=== PATIENT | female | born 1985 | race Caucasian/White ===

== ENCOUNTER 2016-05-22 06:09 | Inpatient (IN) | payer OTHER ==
[~2016-05-22] VITALS: Ht 154.9 cm; Wt 79.5 kg
[2016-05-22] VITALS (31 sets, daily range): BP systolic 107–151; BP diastolic 55–91; PULSE 80–144; TEMP 36.6–37; O2SAT 86–100; Ht 154.9 cm; Wt 79.5 kg
[~2016-05-22 06:09] MED LIST: ALBUAER2 INH; AMPH30CA3 PO; CETITAB27 PO; CHOL100027 PO; IPRASOL4 INH; MAGN400T5 PO; MOME200A INH; MONT1TAB3 PO; NICO21DI35 TD; NICO2LOZ PO; OMEG10007 PO; PRED10TA PO
[2016-05-22] MEDS ORDERED: METHYLPREDNISOLONE 125 MG VIAL IV STA (06:13)
[2016-05-22] MEDS ORDERED: MAGNESIUM SULFATE 1GM / D5W 1 GM BAG IV STA ×2 (06:13)
[2016-05-22] MEDS ORDERED: SODIUM CHLORIDE 0.9% 1000ML 1,000 ML IV STA (06:15)
--- NOTE | 2016-05-22 06:33 | EMERGENCY ROOM VISIT NOTE ---
History Report prepared by Dara: Artemio Owens Under the Supervision of: Dr. Lauren Arnold D.O. First contact with patient: 06:13 Chief Complaint: RESPIRATORY PROBLEMS Stated Complaint: ASTHMA History of Present Illness The patient is a 30 year old female who presents to the Emergency Room with complaints of worsening shortness of breath for the past two days. The patient started having a much harder time breathing this morning. She has not felt febrile. The patient has a history of asthma exacerbation. She usually finds relief from steroids when she is having an asthma attack. The patient has been has been intubated for asthma in the past. She denies any other health problems. A broth setter of the patient states that she had a similar episode one year ago that requires intubation. The patient is a smoker. Source of History: patient Onset: two days Position: other (respiratory) Quality: other (short of breath) Timing: worsening Associated Symptoms: No fevers Review of Systems See HPI for pertinent positives & negatives. A total of 10 systems reviewed and were otherwise negative. Past Medical & Surgical Medical Problems: (1) Asthma (2) Asthma with acute exacerbation (3) Bronchitis Family History Cancer Diabetes mellitus Hypertension Social History Smoking Status: Current Every Day Smoker Alcohol Use: none Drug Use: none Marital Status: in relationship Housing Status: lives with significant other Occupation Status: unemployed Current/Historical Medications Scheduled Amphetamine-Dextroamphetamine 30MG (Adderall Xr 30MG), 30 MG PO BID Cetirizine/Pseudoephedrine (Zyrtec-D Er 5MG/120MG), 1 TAB PO Q12H Clonidine (Catapres-Tts), 1 PATCH TD WK Clonidine Hcl (Catapres), 0.1 MG PO HS Fish Oil ([place]-3), 1 CAP PO DAILY Fluoxetine (Prozac), 20 MG PO DAILY Fluticasone Furoate-Vilanterol (Breo Ellipta 200-25 Mcg/INH), 1 PUFF INH DAILY Montelukast Sodium (Singulair), 10 MG PO DAILY Multivitamin (Multivitamin), 1 TAB PO DAILY Quetiapine Fumarate (Seroquel), 50-100 MG PO HS Scheduled PRN Albuterol (Ventolin), 2 PUFFS INH Q4 PRN for SOB/Wheezing Hydroxyzine Hcl (Atarax), 50-100 MG PO Q6 PRN for Anxiety Ipratropium-Albuterol (Duoneb), 1 TREATMENT INH Q4H PRN for Wheezing Methocarbamol (Robaxin), 1-2 TAB PO Q6 PRN for UNDECIDED Allergies Coded Allergies: No Known Allergies (Unverified , 11/03/12) Physical Exam Vital Signs Date Time Temp Pulse Resp B/P Pulse Ox O2 Delivery O2 Flow Rate FiO2 05/22/16 07:57 36.5 05/22/16 07:50 151/72 05/22/16 07:39 138 100 05/22/16 07:24 140 99 05/22/16 07:19 141 100 BiPAP 05/22/16 07:09 179/151 05/22/16 07:04 142 100 05/22/16 06:49 142 100 05/22/16 06:44 98 BiPAP 50 05/22/16 06:39 142 100 BiPAP 50 05/22/16 06:34 148 100 BiPAP 50 05/22/16 06:33 100 BiPAP 05/22/16 06:33 100 BiPAP 05/22/16 06:32 62 Room Air 05/22/16 06:29 144 99 05/22/16 06:29 144 42 121/97 62 Room Air 05/22/16 06:28 149/97 05/22/16 06:25 144 96 50 05/22/16 06:24 147 93 05/22/16 06:24 142 05/22/16 06:19 143 91 05/22/16 06:13 121/97 Physical Exam General: Appears to be in severe respiratory distress with audible wheezing. HEENT: Head - normocephalic and atraumatic Pupils are equal, round, and reactive to light. Extraocular eye muscles are intact, and sclera are anicteric. Nose - moist nasal mucosa without discharge. Mouth - moist buccal mucosa. Oropharynx is nonerythematous and there is no tonsillar exudate or edema noted. Neck: Supple; no JVD, nuchal rigidity, cervical lymphadenopathy. Heart: Tachycardic, regular rhythm. There is a normal S1 and S2 with no murmurs , clicks, or gallops appreciated. Lungs: Inspiratory and expiratory wheezing in all lung mosley with very little air movement. Abdomen: Soft, completely nontender, nondistended, with good bowel sounds. There are no palpable pulsatile masses or hepatosplenomegaly. There is no guarding, rigidity, or rebound noted. Extremities: No evidence of cyanosis, clubbing, or edema. There are easily palpable peripheral pulses. Skin: Pale and diaphoretic. Medical Decision & Procedures ER Provider Diagnostic Interpretation: X-ray results as stated below per interpretation by me and the radiologist: CHEST ONE VIEW PORTABLE CLINICAL HISTORY: severe asthma attack COMPARISON STUDY: 05/11/2015 FINDINGS: Study is limited from a technical standpoint with suboptimal evaluation of the lung bases. The heart is normal in size. There is no failure. There is a triangle density at the right lung base, likely atelectatic. There are no pleural effusions.[ There is been interval removal of endotracheal tube. IMPRESSION: 1. Interval removal of the endotracheal tube 2. Triangular opacity at the right lung base, likely atelectatic, although an inflammatory process could appear similar. If the patient's symptoms persist, a PA and lateral study is recommended. Electronically signed by: Fabricio Sawyer M.D. 05/22/2016 6:44 AM Laboratory Results Test 05/22/16 07:45 05/22/16 07:55 Laboratory results per my review. Medications Administered Medications (Trade) Dose Ordered Sig/Shawn Route Start Time Stop Time Status Last Admin Dose Admin Methylprednisolone Sodium Succinate (Solu-Medrol IV) 125 mg NOW STAT IV 05/22/16 06:13 05/22/16 06:15 DC 05/22/16 06:26 125 MG Magnesium Sulfate (Magnesium Sulfate) 1 gm NOW STAT IV 05/22/16 06:13 05/22/16 06:15 DC 05/22/16 06:26 1 GM Magnesium Sulfate 1 gm 1 gm NOW STAT IV 05/22/16 06:13 05/22/16 06:15 DC 05/22/16 06:45 1 GM Sodium Chloride (Nss 1000ml) 1,000 ml @ 999 mls/hr Q1H1M STAT IV 05/22/16 06:15 05/22/16 07:15 DC 05/22/16 06:27 999 MLS/HR Procedure Medications administered include Magnesium Sulfate IV, Solu-Medrol IV, NSS, DuoNeb treatments, 1:100,000 epinephrine IV-3 mL's ED Course 0610: Past medical records reviewed. The patient was evaluated emergently in room B1. A complete history and physical exam was performed. 2 large bore IV locks were initiated. The patient was placed on supplemental O2. Patient was given a DuoNeb treatment. The patient was placed on BiPAP. A portal chest x- ray was obtained. 0613: Magnesium Sulfate 1 gm IV, Magnesium Sulfate 1 gm IV, Solu-Medrol 125 mg IV. 0615: NSS 1000 ml @ 999 mls/hr. patient received her first 1 mL dose of 1:100, 000 epinephrine IV. 0645: The patient continues to look slightly improved on BiPAP with nebs through the circuit. 0700: Spoke with the patient's brother at bedside. We are still working on getting an ABG. The patient is feeling slightly better. 0720: I performed a groin stick on the patient for blood. 0731: Discussed the case with Dr. Campos, Professor Of Environmental [employer]. She will see the patient in the ED. 0735: Doing another groin stick. 0749: [facility] is aware [facility] the situation. 0800: Unfortunately, the patient's blood continues to clot with each laboratory test. I stuck her groin again for blood. 0817: I discussed the case with Dr. Campos at the bedside. The patient continues to improve and is able to speak 4-5 word sentences. Medical Decision The patient is a 30 year old female who presents to the ED with shortness of breath. Differential diagnosis includes respiratory failure, status asthmaticus , pneumonia, bronchitis, URI. We're unable to get any laboratory results here in the emergency department as the patient's blood continued to clot. This is a 30-year-old female patient with a history of asthma who presents to the emergency department in severe respiratory distress. The patient had an O2 saturation presentation of 60%. She is suffering from respiratory failure. We made a significant attempt at reversing the patient's status asthmaticus. She received IV normal saline solution, IV site Medrol, IV magnesium, and IV epinephrine. We did make some improvement. O2 saturations are currently 98% on BiPAP. The patient will be admitted to the ICU. Her respiratory status is significantly improved since presentation. The patient has a history of asthma and continues to smoke. Her brother explains that she is currently taking oral steroids. Consults Time Called: 724 Consulting Physician: Dr. Campos, Professor [employer] Returned Call: 730 07: Discussed the case with Dr. Campos, Professor Of Environmental [employer]. She will see the patient in the ED. Additional Consults: Time Called: 744 Consulted Physician: Dr. Hernandez, [facility] Returned Call: 07 Additional Comments: 07: Discussed the case with Dr. Hernandez, [facility]. He is aware of the situation. Impression Primary Impression: Respiratory failure Additional Impression: Status asthmaticus Critical Care I have personally spent greater than 120 minutes of critical care time in the direct management of this patient. This includes bedside care, interpretation of diagnostic studies, and testing, discussion with consultants, patient, and family members, and other required patient management activities. This 120 minutes is in excess of all separately billable procedures. Scribe Attestation The scribe's documentation has been prepared under my direction and personally reviewed by me in its entirety. I confirm that the note above accurately reflects all work, treatment, procedures, and medical decision making performed by me. Departure Information Dispostion Other (Being Evaluated By Professor Of Environmental Science) Referrals Anjel Zeng D.O.Int.Med. (PCP) Patient Instructions A Signature Page, My [facility]
[2016-05-22] MEDS ORDERED: FLUT1INH7 INH (06:40)
[2016-05-22] MEDS ORDERED: MULT-506 PO (06:41)
[2016-05-22] MEDS ORDERED: CLON0.1T12 PO (06:41)
[2016-05-22] MEDS ORDERED: CLON0.1D7 TD (06:42)
[2016-05-22] MEDS ORDERED: FLUO20CA35 PO (06:43)
[2016-05-22] MEDS ORDERED: QUET1TAB32 PO ×2 (06:45→08:54)
[2016-05-22] MEDS ORDERED: METH750T PO (06:46)
--- NOTE | 2016-05-22 06:46 | DIAGNOSTIC IMAGING REPORT ---
CHEST ONE VIEW PORTABLE CLINICAL HISTORY: severe asthma attack COMPARISON STUDY: 05/11/2015 FINDINGS: Study is limited from a technical standpoint with suboptimal evaluation of the lung bases. The heart is normal in size. There is no failure. There is a triangle density at the right lung base, likely atelectatic. There are no pleural effusions.[ There is been interval removal of endotracheal tube. IMPRESSION: 1. Interval removal of the endotracheal tube 2. Triangular opacity at the right lung base, likely atelectatic, although an inflammatory process could appear similar. If the patient's symptoms persist, a PA and lateral study is recommended. Electronically signed by: Fabricio Sawyer M.D. 05/22/2016 6:44 AM
[2016-05-22] MEDS ORDERED: HYDR-3126 PO (06:48)
[2016-05-22] MEDS ORDERED: hydrOXYzine HCL 25 MG TAB PO PRN (08:00)
[2016-05-22] MEDS ORDERED: ALBUTEROL HFA 8 GM INHALER INH PRN (08:00)
[2016-05-22] MEDS ORDERED: ALBUT/IPRATROP 3MG/0.5MG NEB 3 ML VIAL INH PRN (08:00)
[2016-05-22] MEDS ORDERED: CETIRIZINE PO SCH (08:00)
[2016-05-22] MEDS ORDERED: METHOCARBAMOL 750 MG TAB PO PRN (08:00)
[2016-05-22] MEDS ORDERED: PSEUDOEPHEDRINE PO SCH (08:00)
[2016-05-22] MEDS ORDERED: CTP/1 PO (08:44)
[2016-05-22] MEDS ORDERED: HYDR1CAP85 PO (08:54)
[2016-05-22] MEDS ORDERED: PREN1TAB29 PO (08:54)
[2016-05-22] MEDS ORDERED: NRN100 PO (08:54)
[2016-05-22] MEDS ORDERED: BACL10TA PO (08:54)
[2016-05-22] MEDS ORDERED: AMPHETAMINE DEXTROAMPHETAMINE 30 MG PO SCH (09:00)
[2016-05-22] MEDS ORDERED: NON-FORMULARY MEDICATION (Fluticasone Furoate-Vilanterol (Breo Ellipta 200-25 Mcg/INH) 1 P INH SCH (09:00)
[2016-05-22] MEDS ORDERED: NURSING VERBAL MED ORDER ONE ×2 (09:30→09:45)
[2016-05-22] MEDS ORDERED: MoRPHine SULFATE 2 MG/ML CARP ONE (09:32)
[2016-05-22] MEDS ORDERED: SODIUM CHLORIDE 0.9% 1000ML 1,000 ML IV ONE (09:45)
[2016-05-22] MEDS ORDERED: ACETAMINOPHEN IV 100 ML IV PRN (09:45)
[2016-05-22] MEDS ORDERED: MoRPHine SULFATE 2 MG/ML CARP IV STA (09:46)
[2016-05-22] MEDS: NICOTINE 14 MG/24 HR TDSY TD SCH (10:39)
[2016-05-22] MEDS: PANTOprazole SOD 40 MG TAB PO SCH (10:39)
[2016-05-22] MEDS: MONTELUKAST SOD 10 MG TAB PO SCH (10:39)
[2016-05-22] MEDS: FLUOXETINE HCL 20 MG CAP PO SCH (10:40)
[2016-05-22] MEDS: MULTIVITAMIN TAB PO SCH (10:40)
[2016-05-22] MEDS: SODIUM CHLORIDE 0.9% 1000ML 1,000 ML IV SCH ×3 (11:07→23:18)
[2016-05-22] MEDS: ALBUT/IPRATROP 3MG/0.5MG NEB 3 ML VIAL INH SCH ×2 (11:13→15:41)
[2016-05-22 11:36] LABS: BASO % 0.1 %; BASO ABS # 0.01 K/uL (0-0.2); COMPLETE YES; EOS % 0.3 %; HEMATOCRIT 34.2 % (37-47); IG% 0.2 %; LYMPH % 3.2 %; LYMPH ABS # 0.46 K/uL (1.2-3.4); MEAN CELL VOLUME 88.4 fL (80-100); MEAN CORPUSCULAR HEMOGLOBIN 29.7 pg (25-34); MEAN CORPUSCULAR HGB CONC 33.6 g/dl (32-36); MEAN PLATELET VOLUME 10.7 fL (7.4-10.4); MONO % 0.6 %; NEUT % 95.6 %; PLATELET COUNT 267 K/uL (130-400); RED BLOOD COUNT 3.87 M/uL (4.2-5.4); WHITE BLOOD COUNT 14.37 K/uL (4.8-10.8)
[2016-05-22 11:46] LABS: VEN BLD GAS O2 SATURATION 82.3 %
[2016-05-22 11:50] LABS: INR 1.1 (0.9-1.1); PROTHROMBIN TIME (PATIENT) 11.3 SECONDS (9.0-12.0)
[2016-05-22 11:58] LABS: ALT/SGPT 43 U/L (12-78); BLOOD UREA NITROGEN 15 mg/dl (7-18); BUN/CREATININE RATIO 32.7 (10-20); CALCIUM 7.9 mg/dl (8.5-10.1); CARBON DIOXIDE 27 mmol/L (21-32); CHLORIDE 106 mmol/L (98-107); CREATININE 0.45 mg/dl (0.60-1.20); GLUCOSE 152 mg/dl (70-99); MAGNESIUM 2.4 mg/dl (1.8-2.4); SODIUM 141 mmol/L (136-145)
[2016-05-22 12:14] LABS: ALB/GLOB RATIO 0.8 (0.9-2); ALKALINE PHOSPHATASE 80 U/L (45-117); AST/SGOT 26 U/L (15-37); PHOSPHORUS 1.5 mg/dl (2.5-4.9)
[2016-05-22 12:43] LABS: INFLUENZA A PCR Neg for Influ A (NEG); INFLUENZA B PCR Neg for Influ B (NEG)
[2016-05-22] MEDS: METHYLPREDNISOLONE IV 60 MG in SYRINGE 0 ML IV SCH ×3 (12:49→23:17)
[2016-05-22] MEDS ORDERED: POTASSIUM PHOS 3 MMOL/1 ML INFUSION IV STA (13:02)
[2016-05-22] MEDS ORDERED: SODIUM PHOSPHATE 3 MMOL/1 ML INFUSION IV STA (13:18)
--- NOTE | 2016-05-22 13:33 | History and Physical ---
History & Physical Date & Time of Service: May 22, 2016 at 13:18 Chief Complaint: Asthma With Acute Exacerbation Primary Care Physician: Anjel Zeng D.O.Int.Med. History of Present Illness Source: patient, family, hospital records 30 yo female with history of asthma and tobacco abuse presented to the ED in the svp monetization with respiratory distress, wheezing, coughing that started the evening before. Her asthma is typically well controlled and she is compliant with maintenance inhaled therapies. She has experienced some mild exacerbations over the past year but all resolved with outpatient treatment. She does have a history of status asthmaticus in April 2015 that required intubation and she was eventually transferred to tertiary care center. She and family report that she had a full recovery after that episode. More recently, the patient started to feel short of breath 24 hours prior to admission. She has multiple family members who are experiencing URI symptoms including parents and brother. She stared with rhinorrhea and congestion, then started to cough and then wheeze. Her respiratory rate increased and she developed distress. In the ED she was breathing in the 40's and she was very fatigued. CXR was normal. She was 60% on room air so BiPAP placed. She received Epinephrine, Solumedrol, nebulizers and IV fluids. She started to become more awake and alert and oxygen saturations were in the 90's on the BiPAP. When I saw her she was smiling and laughing, certainly no longer in distress. She was still very tight on exam with bilateral wheezing, decision made to admit to ICU and Dr. Campos evaluated in the ED. Past Medical/Surgical History Medical Problems: (1) Asthma Status: Chronic (2) Bronchitis Status: Resolved ADHD Tobacco abuse h/o IgE allergies Family History Cancer Diabetes mellitus Hypertension Social History Smoking Status: Current Every Day Smoker (1 ppd) Drug Use: none Marital Status: in relationship Occupational Status: unemployed Multi-Drug Resistant Organisms History of MDRO: No Allergies Coded Allergies: Dust (Verified Allergy, Severe, BREATHING DIFFICULTIES, 05/22/16) POLLEN (Verified Allergy, Severe, BREATHING DIFFICULTIES, 05/22/16) Pollen Extract (Verified Allergy, Severe, BREATHING DIFFICULTIES, 05/22/16 ) Cat Dander (Verified Allergy, Intermediate, BREATHING DIFFICULTIES, ) CAT DANDER/SALIVA Dog Dander (Verified Allergy, Intermediate, BREATHING DIFFICULTIES, ) DOG DANDER/SALIVA Grass (Verified Allergy, Intermediate, BREATHING DIFFICULTIES, 05/22/16) Home Medications Scheduled Amphetamine-Dextroamphetamine 30MG (Adderall Xr 30MG), 30 MG PO BID Baclofen (Lioresal), 1 TAB PO TID Fluoxetine (Prozac), 20 MG PO DAILY Fluticasone Furoate-Vilanterol (Breo Ellipta 200-25 Mcg/INH), 1 PUFF INH DAILY Gabapentin (Gabapentin), 1 CAP PO DAILY Hydroxyzine Pamoate (Vistaril), 25 MG PO QID Multivitamin (Multivitamin), 1 TAB PO DAILY Vit W/ Ferrous Fumara (), 1 TAB PO DAILY Quetiapine Fumarate (Seroquel), 50 MG PO HS Scheduled PRN Albuterol (Ventolin), 2 PUFFS INH Q4 PRN for SOB/Wheezing Clonidine Hcl (Catapres), 0.1 MG PO DAILY PRN for PRN Ipratropium-Albuterol (Duoneb), 1 TREATMENT INH Q4H PRN for Wheezing Review of Systems Constitutional: + fatigue, + weakness, No chills, No fever, No sweats, No weight loss Eyes: No diplopia, No discharge, No eye pain, No problem reported, No redness, No worsening of vision ENT: + nasal symptoms, + sore throat, No dental problems, No hearing loss, No problem reported, No tinnitus, No trouble swallowing, No unusual epistaxis Respiratory: + cough, + dyspnea at rest, + dyspnea on exertion, + shortness of breath, + wheezing, No hemoptysis, No sputum Cardiovascular: No PND, No chest pain, No claudication, No edema, No orthopnea , No palpitations, No problem reported Abdomen: No GI bleeding, No constipation, No diarrhea, No nausea, No pain, No problem reported, No vomiting Musculoskeletal: No calf pain, No joint pain, No muscle pain, No problem reported, No swelling Genitourinary - Female: No dysuria, No urinary frequency, No urinary incontinence, No urinary urgency Neurologic: No balance problems, No memory loss, No numbness/tingling, No paralysis, No problem reported, No vertigo, No weakness Psychiatric: No anhedonism, No anxiety, No depression symptoms, No insomnia, No problem reported, No substance abuse Endocrine: No excessive thirst, No excessive urination, No fatigue, No problem reported Hematologic / Lymphatic: No abnormal bleeding/bruising, No clotting problems, No night sweats, No problem reported, No swollen lymph nodes Integumentary: No bleeding, No color change, No itch, No new/changing skin lesions, No problem reported, No rash Allergic / Immunologic: + seasonal allergies, No environmental allergies, No food allergies, No frequent infections, No hives, No pet sensitivities, No poor healing Physical Exam Vital Signs Date Time Temp Pulse Resp B/P Pulse Ox O2 Delivery O2 Flow Rate FiO2 05/22/16 12:00 100 BiPAP 40 05/22/16 11:59 111 22 107/73 97 05/22/16 11:18 114 26 100 BiPAP/CPAP 50 05/22/16 11:16 114 100 50 05/22/16 11:00 116 24 119/75 100 05/22/16 10:00 119 24 100 05/22/16 09:30 128 31 99 05/22/16 09:20 131 28 140/94 100 BiPAP 50 05/22/16 09:17 130 29 151/55 98 05/22/16 09:17 130 29 151/55 98 05/22/16 09:00 100 BiPAP 05/22/16 09:00 36.8 05/22/16 09:00 128 99 05/22/16 09:00 128 99 05/22/16 08:42 100 BiPAP 50 05/22/16 07:57 36.5 05/22/16 07:50 151/72 05/22/16 07:39 138 100 05/22/16 07:24 140 99 05/22/16 07:19 141 100 BiPAP 05/22/16 07:09 179/151 05/22/16 07:04 142 100 05/22/16 06:49 142 100 05/22/16 06:44 98 BiPAP 50 05/22/16 06:39 142 100 BiPAP 50 05/22/16 06:34 148 100 BiPAP 50 05/22/16 06:33 100 BiPAP 05/22/16 06:33 100 BiPAP 05/22/16 06:32 62 Room Air 05/22/16 06:29 144 99 05/22/16 06:29 144 42 121/97 62 Room Air 12/31/16 06:28 149/97 05/22/16 06:25 144 96 50 05/22/16 06:24 147 93 05/22/16 06:24 142 05/22/16 06:19 143 91 05/22/16 06:13 121/97 General Appearance: WD/WN, + mild distress Head: normocephalic, atraumatic Eyes: normal inspection, EOMI, sclerae normal ENT: normal ENT inspection, hearing grossly normal, pharynx normal Neck: supple, no adenopathy, no JVD, trachea midline Respiratory/Chest: chest non-tender, normal breath sounds, + respiratory distress (mild), + accessory muscle use, + wheezing Cardiovascular: no edema, no gallop, no JVD, no murmur, normal peripheral pulses, + tachycardia Abdomen/GI: normal bowel sounds, non tender, soft, no organomegaly Back: normal inspection, no CVA tenderness, no muscle spasm, normal range of motion Extremities/Musculoskelatal: normal inspection, no calf tenderness, normal capillary refill, no pedal edema, normal range of motion, pelvis stable Neurologic/Psych: associate technician II-XII nml as tested, no motor/sensory deficits, alert, normal mood/affect, normal reflexes, oriented x 3 Skin: normal color, warm/dry, no rash Lymphatic: no adenopathy Diagnostics Laboratory Results Results Past 24 Hours Test 05/22/16 09:30 05/22/16 11:17 05/22/16 11:18 05/22/16 11:20 Range/Units Influenza Type A (RT-PCR) Neg for Influ A NEG Influenza Type B (RT-PCR) Neg for Influ B NEG Venous Blood pH 7.38 7.36-7.41 Venous Blood Partial Pressure CO2 46 38.0-50.0 mmHg Venous Blood Partial Pressure O2 47 mmHg Venous Blood HCO3 27 mmol/L Venous Blood Oxygen Saturation 82.3 % Venous Blood Base Excess 1.0 mmol/L White Blood Count 14.37 4.8-10.8 K/uL Red Blood Count 3.87 4.2-5.4 M/uL Hemoglobin 11.5 12.0-16.0 g/dL Hematocrit 34.2 37-47 % Mean Corpuscular Volume 88.4 80-100 fL Mean Corpuscular Hemoglobin 29.7 25-34 pg Mean Corpuscular Hemoglobin Concent 33.6 32-36 g/dl Platelet Count 267 130-400 K/uL Mean Platelet Volume 10.7 7.4-10.4 fL Neutrophils (%) (Auto) 95.6 % Lymphocytes (%) (Auto) 3.2 % Monocytes (%) (Auto) 0.6 % Eosinophils (%) (Auto) 0.3 % Basophils (%) (Auto) 0.1 % Neutrophils # (Auto) 13.74 1.4-6.5 K/uL Lymphocytes # (Auto) 0.46 1.2-3.4 K/uL Monocytes # (Auto) 0.08 0.11-0.59 K/uL Eosinophils # (Auto) 0.05 0-0.5 K/uL Basophils # (Auto) 0.01 0-0.2 K/uL RDW Standard Deviation 42.1 36.4-46.3 fL RDW Coefficient of Variation 13.1 11.5-14.5 % Immature Granulocyte % (Auto) 0.2 % Immature Granulocyte # (Auto) 0.03 0.00-0.02 K/uL Prothrombin Time 11.3 9.0-12.0 SECONDS Prothromb Time International Ratio 1.1 0.9-1.1 Activated Partial Thromboplast Time 26.6 21.0-31.0 SECONDS Partial Thromboplastin Ratio 1.0 Sodium Level 141 136-145 mmol/L Potassium Level 4.0 3.5-5.1 mmol/L Chloride Level 106 98-107 mmol/L Carbon Dioxide Level 27 21-32 mmol/L Anion Gap 8.0 3-11 mmol/L Blood Urea Nitrogen 15 7-18 mg/dl Creatinine 0.45 0.60-1.20 mg/dl Est Creatinine Clear Calc Drug Dose 176.1 ml/min Estimated GFR () > 150.0 Estimated GFR (Non- 135.4 BUN/Creatinine Ratio 32.7 10-20 Random Glucose 152 70-99 mg/dl Lactic Acid Level 1.2 0.4-2.0 mmol/L Calcium Level 7.9 8.5-10.1 mg/dl Phosphorus Level 1.5 2.5-4.9 mg/dl Magnesium Level 2.4 1.8-2.4 mg/dl Total Bilirubin 0.2 0.2-1 mg/dl Aspartate Amino Transf (AST/SGOT) 26 15-37 U/L Alanine Aminotransferase (ALT/SGPT) 43 12-78 U/L Alkaline Phosphatase 80 45-117 U/L Total Protein 6.6 6.4-8.2 gm/dl Albumin 3.0 3.4-5.0 gm/dl Globulin 3.6 2.5-4.0 gm/dl Albumin/Globulin Ratio 0.8 0.9-2 Bedside Glucose 151 70-90 mg/dl Microbiology Results 05/22/16 Blood Culture, Received Pending 05/22/16 Blood Culture, Received Pending 05/22/16 MRSA DNA Surveillance Screen - Final, Complete Specimen Negative for MRSA by DNA Probe CXR normal Impression Assessment and Plan 30 yo female with status asthmaticus, acute respiratory failure - Status asthmaticus with acute hypoxic respiratory failure: admit to ICU on BiPAP Solumedrol 80 q 8, Levaquin, nebulizers consult pulmonary medicine for recommendations, consult ICU will check labs (unobtainable in the ED) already showing signs of improvement, should be able to hold off on intubation - Tobacco abuse: nicotine patch, will continue to breastfeeding peer counselor on importance of quitting - ADHD: continue Seroquel - DVT prophylaxis: Lovenox - GI prophylaxis: Protonix, due to high dose steroids Level of Care Critical Care Advanced Directives Existing Advance Directive: No Existing Living Will: No Existing Power of Synchronizer: No Resuscitation Status FULL RESUSCITATION VTE Prophylaxis VTE Risk Assessment Done? Y/N: Yes Risk Level: Low Given or contraindicated: Enoxaparin (Lovenox)SQ Additional Copies To Anjel Zeng D.O.Int.Med.; Jesus Fulton M.D.
[2016-05-22] MEDS: MoRPHine SULFATE 2 MG/ML CARP IV PRN ×2 (13:34→18:05)
[2016-05-22] MEDS: ENOXAPARIN 40 MG/0.4 ML SYR SQ SCH (13:35)
[2016-05-22] MEDS: ALBUTEROL 0.083% NEBU SOLN 3 ML VIAL INH PRN ×2 (13:44→19:45)
[2016-05-22] MEDS ORDERED: LEVOFLOXACIN / D5W 750 MG in PREMIXED IN D5W 150 ML IV SCH (14:00)
[2016-05-22] MEDS ORDERED: SODIUM PHOSPHATE INJ 15 MMOL in SODIUM CHLORIDE 0.9% 250ML 250 ML IV ONE (14:00)
[2016-05-22] MEDS: POTASSIUM PHOSPHATE INJ 15 MMOL in SODIUM CHLORIDE 0.9% 250ML 250 ML IV SCH (14:16)
[2016-05-22] MEDS: ADDERALL 30 MG SCH ×2 (16:00→23:27)
--- NOTE | 2016-05-22 16:08 | Pulmonary Consultation ---
History General Date of Service: May 22, 2016. Stated Complaint: Asthma With Acute Exacerbation HPI The patient is a 30 year old female who presents to [facility] with complaints of Asthma With Acute Exacerbation. The patient's primary care provider is Anjel Zeng D.O.Int.Med.. 30-year-old female admitted for severe asthma flare/status asthmaticus requiring ICU admission. Patient has had increasing dyspnea on exertion with green productive sputum off and on since 2015. In 2014 she notes 4-5 admissions for asthma exacerbation while in 2015 she was incarcerated this is her first exacerbation requiring admission. Since legs giving she has noted difficulty with dyspnea on exertion, previous 12 hours prior to admission her work of breathing increased dramatically and she believes she was going to go into respiratory failure. In the emergency room the patient was severely tachypneic and low 40s and BiPAP was initiated. She was also treated with 125 mg of IV Solu-Medrol, 2 g of magnesium sulfate, DuoNeb treatments and 1:100,000 epinephrine IV. Since these interventions the patient notes decrease work of breathing but still requires noninvasive ventilation secondary to severe cough. Denies: Fever, chills, drug use, pleurisy, cardiac chest pain, weight loss, hemoptysis Positive: Menses Review of Systems Constitutional: reports: no symptoms Eyes: reports: no symptoms ENT: reports: no symptoms Cardiovascular: reports: no symptoms Respiratory: reports: as stated in HPI Gastrointestinal: reports: no symptoms Genitourinary - Female: reports: no symptoms Integumentary: reports: no symptoms Neurologic: reports: no symptoms Psychiatric: reports: no symptoms Endocrine: no symptoms Hematologic / Lymphatic: no symptoms Allergic / Immunologic: no symptoms Past Medical History Past Medical History: 1) Poorly controlled asthma a. Elevated IgE b. Poor candidate for candidate for allergy 2) Respiratory failure from asthma a. Intubation b. Precipitated from nasal inhalation heroin c. Sent the fluid of for rehabilitation d. Multiple exacerbations requiring steroids 3) Tobacco dependence 4) Anxiety 5) Attention deficit disorder without hyperactivity 6) Insomnia 7) Oral allergy syndrome Family History Cancer Diabetes mellitus Hypertension 1) Breast cancer 2) Ovarian cancer 3) Asthma 4) Diabetes Social History Hx Tobacco Use In Past Year?: Yes Smoking Status: Current Every Day Smoker (1 ppd) Marital status: in relationship Occupational Status: unemployed History of MDRO History of MDRO: No Allergies Coded Allergies: Dust (Verified Allergy, Severe, BREATHING DIFFICULTIES, 05/22/16) POLLEN (Verified Allergy, Severe, BREATHING DIFFICULTIES, 05/22/16) Pollen Extract (Verified Allergy, Severe, BREATHING DIFFICULTIES, 05/22/16 ) Cat Dander (Verified Allergy, Intermediate, BREATHING DIFFICULTIES, ) CAT DANDER/SALIVA Dog Dander (Verified Allergy, Intermediate, BREATHING DIFFICULTIES, ) DOG DANDER/SALIVA Grass (Verified Allergy, Intermediate, BREATHING DIFFICULTIES, 05/22/16) Current Medications Reported Home Medications Medications Dose Route/Sig Max Daily Dose Days Date Category Dose Instructions Seroquel (Quetiapine Fumarate) 50 Mg Tab 50 Mg PO HS 05/22/16 Reported Gabapentin Unknown Strength Cap 1 Cap PO DAILY 05/22/16 Reported ( Vit W/ Ferrous Fumara) 1 Tab Tab 1 Tab PO DAILY 05/22/16 Reported Lioresal (Baclofen) Unknown Strength Tab 1 Tab PO TID 05/22/16 Reported WAS 10MG IN SEPTEMBER OF 2015. Vistaril (Hydroxyzine Pamoate) 25 Mg Cap 25 Mg PO QID 05/22/16 Reported Catapres (Clonidine Hcl) 0.1 Mg Tab 0.1 Mg PO DAILY PRN 05/22/16 Reported Prozac (Fluoxetine HCl) 20 Mg Cap 20 Mg PO DAILY 05/22/16 Reported Multivitamin (Multivitamins) Tab 1 Tab PO DAILY 05/22/16 Reported Breo Ellipta 200-25 Mcg/INH (Fluticasone Furoate-Vilanterol) 1 Inh Inh 1 Puff INH DAILY 05/22/16 Reported Duoneb (Ipratropium-Albuterol) 3 Ml Nebu 1 Treatment INH Q4H PRN 05/11/15 Reported Adderall Xr 30MG (Amphetamine-Dextroamphetamine 30MG) 1 Cap Cap 30 Mg PO BID 05/11/15 Reported Ventolin (Albuterol) Inh 2 Puffs INH Q4 PRN 01/17/06 Reported Physical Physical Exam Vital Signs: Date Time Temp Pulse Resp B/P Pulse Ox O2 Delivery O2 Flow Rate FiO2 05/22/16 15:44 98 22 100 BiPAP/CPAP 40 05/22/16 15:42 98 100 40 05/22/16 15:00 108 22 121/88 100 05/22/16 13:58 110 26 129/74 97 12/31/16 13:44 110 26 100 BiPAP/CPAP 40 05/22/16 12:59 110 27 115/75 97 05/22/16 12:00 100 BiPAP 40 05/22/16 12:00 37.0 05/22/16 11:59 111 22 107/73 97 05/22/16 11:18 114 26 100 BiPAP/CPAP 50 05/22/16 11:16 114 100 50 05/22/16 11:00 116 24 119/75 100 05/22/16 10:00 119 24 100 05/22/16 09:30 128 31 99 05/22/16 09:20 131 28 140/94 100 BiPAP 50 05/22/16 09:17 130 29 151/55 98 05/22/16 09:17 130 29 151/55 98 05/22/16 09:00 100 BiPAP 05/22/16 09:00 36.8 05/22/16 09:00 128 99 05/22/16 09:00 128 99 05/22/16 08:42 100 BiPAP 50 05/22/16 07:57 36.5 05/22/16 07:50 151/72 05/22/16 07:39 138 100 05/22/16 07:24 140 99 05/22/16 07:19 141 100 BiPAP 05/22/16 07:09 179/151 05/22/16 07:04 142 100 05/22/16 06:49 142 100 05/22/16 06:44 98 BiPAP 50 05/22/16 06:39 142 100 BiPAP 50 05/22/16 06:34 148 100 BiPAP 50 05/22/16 06:33 100 BiPAP 05/22/16 06:33 100 BiPAP 05/22/16 06:32 62 Room Air 05/22/16 06:29 144 99 05/22/16 06:29 144 42 121/97 62 Room Air 05/22/16 06:28 149/97 05/22/16 06:25 144 96 50 05/22/16 06:24 147 93 05/22/16 06:24 142 05/22/16 06:19 143 91 05/22/16 06:13 121/97 General Appearance: mild distress Head: NORMOCEPHALIC, ATRAUMATIC Eyes: PERRLA, NO DISCHARGE, EOMI, SCLERAE NORMAL, CONJUNCTIVAE NORMAL ENT: NORMAL EAR EXAM, other (BiPAP mask in place) Neck: NORMAL RANGE OF MOTION, NO TENDERNESS, TRACHEA MIDLINE, NO STRIDOR Respiratory: wheezing Cardiovasular: REGULAR RATE/RHYTHM, NORMAL S1S2, NO M/G/R, NO MURMUR, NO GALLOP Abdomen: NON TENDER, NORMAL BOWEL SOUNDS, NO REBOUND, NO MASSES, NO GUARDING, NO ORGANOMEGALY Genitourinary - Female: EXTERNAL GENITALIA NORMAL Back: NORMAL INSPECTION, NO MIDLINE TENDERNESS, NO CVA TENDERNESS Upper Extremities: NO EDEMA, NO DEFORMITY, NORMAL ROM Lower Extremities: NO EDEMA, NO DEFORMITY, NORMAL ROM Pulses: carotid (R) (2+), carotid (L) (2+), dorsalis pedis (R) (1+), dorsalis pedis (L) (1+) Neuro: ALERT, ORIENTED x 3, NORMAL MOTOR EXAM, NORMAL SENSATION, NORMAL CEREBELLAR EXAM Reflexes: biceps (R) (2+), bicpes (L) (2+) Babinski Testing: right (downgoing), left (downgoing) Psychiatric: [employer] Diagnostics Labs Results Past 24 Hours Test 05/22/16 09:30 05/22/16 11:17 05/22/16 11:18 05/22/16 11:20 Range/Units Influenza Type A (RT-PCR) Neg for Influ A NEG Influenza Type B (RT-PCR) Neg for Influ B NEG Venous Blood pH 7.38 7.36-7.41 Venous Blood Partial Pressure CO2 46 38.0-50.0 mmHg Venous Blood Partial Pressure O2 47 mmHg Venous Blood HCO3 27 mmol/L Venous Blood Oxygen Saturation 82.3 % Venous Blood Base Excess 1.0 mmol/L White Blood Count 14.37 4.8-10.8 K/uL Red Blood Count 3.87 4.2-5.4 M/uL Hemoglobin 11.5 12.0-16.0 g/dL Hematocrit 34.2 37-47 % Mean Corpuscular Volume 88.4 80-100 fL Mean Corpuscular Hemoglobin 29.7 25-34 pg Mean Corpuscular Hemoglobin Concent 33.6 32-36 g/dl Platelet Count 267 130-400 K/uL Mean Platelet Volume 10.7 7.4-10.4 fL Neutrophils (%) (Auto) 95.6 % Lymphocytes (%) (Auto) 3.2 % Monocytes (%) (Auto) 0.6 % Eosinophils (%) (Auto) 0.3 % Basophils (%) (Auto) 0.1 % Neutrophils # (Auto) 13.74 1.4-6.5 K/uL Lymphocytes # (Auto) 0.46 1.2-3.4 K/uL Monocytes # (Auto) 0.08 0.11-0.59 K/uL Eosinophils # (Auto) 0.05 0-0.5 K/uL Basophils # (Auto) 0.01 0-0.2 K/uL RDW Standard Deviation 42.1 36.4-46.3 fL RDW Coefficient of Variation 13.1 11.5-14.5 % Immature Granulocyte % (Auto) 0.2 % Immature Granulocyte # (Auto) 0.03 0.00-0.02 K/uL Prothrombin Time 11.3 9.0-12.0 SECONDS Prothromb Time International Ratio 1.1 0.9-1.1 Activated Partial Thromboplast Time 26.6 21.0-31.0 SECONDS Partial Thromboplastin Ratio 1.0 Sodium Level 141 136-145 mmol/L Potassium Level 4.0 3.5-5.1 mmol/L Chloride Level 106 98-107 mmol/L Carbon Dioxide Level 27 21-32 mmol/L Anion Gap 8.0 3-11 mmol/L Blood Urea Nitrogen 15 7-18 mg/dl Creatinine 0.45 0.60-1.20 mg/dl Est Creatinine Clear Calc Drug Dose 176.1 ml/min Estimated GFR () > 150.0 Estimated GFR (Non- 135.4 BUN/Creatinine Ratio 32.7 10-20 Random Glucose 152 70-99 mg/dl Lactic Acid Level 1.2 0.4-2.0 mmol/L Calcium Level 7.9 8.5-10.1 mg/dl Phosphorus Level 1.5 2.5-4.9 mg/dl Magnesium Level 2.4 1.8-2.4 mg/dl Total Bilirubin 0.2 0.2-1 mg/dl Aspartate Amino Transf (AST/SGOT) 26 15-37 U/L Alanine Aminotransferase (ALT/SGPT) 43 12-78 U/L Alkaline Phosphatase 80 45-117 U/L Total Protein 6.6 6.4-8.2 gm/dl Albumin 3.0 3.4-5.0 gm/dl Globulin 3.6 2.5-4.0 gm/dl Albumin/Globulin Ratio 0.8 0.9-2 Bedside Glucose 151 70-90 mg/dl Microbiology Results 05/22/16 Blood Culture, Received Pending 05/22/16 Blood Culture, Received Pending 05/22/16 MRSA DNA Surveillance Screen - Final, Complete Specimen Negative for MRSA by DNA Probe Diagnostic Radiology This x-ray 05/22/2016 6:28 AM: Flattened diaphragms bilaterally rotated to left with increased cephalization mild peribronchial cuffing Impression Assessment and Plan 30-year-old female with status asthmaticus: #1 asthma: At this time I agree with continuing methylprednisolone, levofloxacin and Singulair. Patient has a history of allergic rhinitis so I will introduce Flonase and azelastine nasal sprays. Patient's triggers appear to be colder, allergen exposure possibly in her family's house (dogs and cats) as well as smoking. Patient is unwilling to consider smoking cessation but will use derma patch at this time. We'll also have to work on smoking triggers possibly working with the family to properly clean the home and possibly remove the dogs and cats. #2 toxins: Patient with a history of heroin ingestion/sniffing creating severe asthma exacerbation with intubation. We'll send for a urine tox screen at this time for evaluation. Thank you for this consultation
--- NOTE | 2016-05-22 16:37 | CRITICAL CARE CONSULTATION ---
DATE OF CONSULTATION: 05/22/2016 CHIEF COMPLAINT: Shortness of breath. HISTORY OF PRESENT ILLNESS: This is a 30-year-old female with a history of asthma who was intubated for respiratory failure secondary to her asthma approximately 1 year ago. She presented to the Emergency Department this morning with complaints of shortness of breath the past 2 days. She tells me that her shortness of breath came on gradually, but she has been having trouble with her breathing since . She has been using her rescue inhaler twice a day at home over the past month and she sometimes uses her nebulizer twice a day. When her asthma is under good control, she takes Symbicort. Last night she believes she was up most of the night, taking albuterol treatments. When they seem to stop working, she decided to come to the hospital. She did not see her physician, has not been on recent antibiotics. She knows she should be doing her peak flows and admits that she understands there is a strategy to determining whether or not she may be decompensating but she does not follow the plan. She denies inhaling any noxious fumes. She coughed up some yellow secretions yesterday and denies any fevers, chills, nausea, vomiting, hemoptysis, diarrhea. She frequently sees her mother and father and believes that they have been ill with cold type symptoms. She is a cigarette smoker. She smokes 1 pack of cigarettes per day. In the Emergency Department, she was in severe respiratory distress and she was placed on BiPAP. She was given 1 g of magnesium sulfate, 125 mg of Solu-Medrol and normal saline 1 liter. She was also given 1 mL above 1:100,000 epinephrine IV. Lab draw was attempted in the Emergency Department, but she is evidently a difficult stick, so blood was drawn from her groin. Unfortunately after 2 tries, the blood was still coming back as clotted and labs were not able to be resulted. She was placed on BiPAP 04/27, 60% in the Emergency Department as well. PAST MEDICAL HISTORY: Asthma, ADHD, tobacco use, environmental allergies. PAST SURGICAL HISTORY: Status post breast surgery and nasal bone surgery. ALLERGIES: No known drug allergies. OUTPATIENT MEDICATIONS: Albuterol 2 puffs q. 4 hours p.r.n., Adderall XR 30 mg p.o. b.i.d., baclofen 1 tab t.i.d., clonidine 0.1 mg p.o. p.r.n., Prozac 20 mg daily, Breo Ellipta 200-25 one inhalation daily, gabapentin 1 capsule daily, Vistaril 25 mg p.o. q.i.d., DuoNeb 1 treatment q. 4 p.r.n., multivitamin 1 p.o. daily, vitamins 1 tab daily, Seroquel 50 mg p.o. at bedtime. SOCIAL HISTORY: She smokes 1 pack of cigarettes per day. Denies alcohol use and is unemployed presently. She lives with her boyfriend. FAMILY HISTORY: Cancer, diabetes mellitus, and hypertension. REVIEW OF SYSTEMS: She complains of a headache and poor appetite the past couple of days. No chest pain, no abdominal pain, no diarrhea, no constipation, no leg swelling. Additional review of systems are negative or noncontributory in a 12-point system other than what is presented in the history of present illness. PHYSICAL EXAMINATION: GENERAL: This is a woman sitting in bed, tachypneic and able to complete short sentences. VITAL SIGNS: Temperature 36.8, heart rate 111-147, respiratory rate 22-49, blood pressure 107-149/70s-90s, oxygen saturation 100% on BiPAP 12/6, 60%. HEENT: Pupils are equally round and reactive to light. No scleral icterus. Oral mucosa dry. Posterior pharynx not able to be visualized secondary to the BiPAP. NECK: No carotid bruits. Trachea is midline. LUNGS: Inspiratory and expiratory wheezes with a prolonged expiratory phase. No rhonchi or rales. HEART: Tachycardic, regular, no murmur. ABDOMEN: Obese, soft, nondistended, nontender. Active bowel sounds. EXTREMITIES: Warm. No edema. NEUROLOGIC: She follows commands and moves all 4 extremities. LABORATORY DATA: 14.37 is white blood cell count, hemoglobin 11.5, hematocrit 34.2, platelets 267. Sodium 141, potassium 4, chloride 106, CO2 27, BUN 15, creatinine 0.45, glucose 151. Lactic acid 1.2, calcium 7.9, phosphorus 1.5, LFTs within normal limits. Albumin 3. Rapid influenza swab negative for influenza A and B. Portable chest x-ray from this morning was reviewed and shows no acute infiltrate. IMPRESSION: 1. Acute exacerbation of asthma. 2. Hypercapnic hypoxemic respiratory failure, acute. 3. History of attention deficit hyperactivity disorder. 4. Tobacco use. 5. Hypophosphatemia. PLAN: 1. Continue bronchodilators and IV steroids. 2. Continue inhaled steroids. 3. I will begin some Levaquin x5 days. 4. Continue DuoNeb q. 4 hours and albuterol q. 2 hours as needed for shortness of breath or wheezing. 5. Continue BiPAP with breaks off the mask. 6. I have discussed her care with her mother who is presently in [place], [place]. Questions were answered and support was provided. Please call me with any questions or concerns. Critical care time 40 minutes. POPPY
[2016-05-22 19:04] LABS: BENZODIAZEPINE, URINE POS (NEG); COCAINE,URINE NEG (NEG); PHENCYCLIDINE, URINE NEG (NEG)
[2016-05-22] MEDS: FLUTICASONE PROPIONATE NA SPR 16 GM BTL SCH (20:00)
[2016-05-22] MEDS ORDERED: QUETIAPINE FUMARATE 25 MG TAB PO SCH (21:00)
[2016-05-23] VITALS (16 sets, daily range): BP systolic 123–159; BP diastolic 72–93; PULSE 67–102; TEMP 36.5–36.7; O2SAT 93–99
[2016-05-23] MEDS: METHYLPREDNISOLONE IV 60 MG in SYRINGE 0 ML IV SCH (05:35)
[2016-05-23 05:53] LABS: COMPLETE YES; HEMATOCRIT 33.9 % (37-47); IG% 0.2 %; LYMPH % 6.2 %; LYMPH ABS # 1.03 K/uL (1.2-3.4); MEAN CELL VOLUME 88.1 fL (80-100); MEAN CORPUSCULAR HEMOGLOBIN 29.6 pg (25-34); MEAN CORPUSCULAR HGB CONC 33.6 g/dl (32-36); MEAN PLATELET VOLUME 11.3 fL (7.4-10.4); MONO % 2.7 %; NEUT % 90.9 %; PLATELET COUNT 230 K/uL (130-400); RED BLOOD COUNT 3.85 M/uL (4.2-5.4); WHITE BLOOD COUNT 16.52 K/uL (4.8-10.8)
[2016-05-23] MEDS: SODIUM CHLORIDE 0.9% 1000ML 1,000 ML IV SCH (06:00)
[2016-05-23 06:23] LABS: BLOOD UREA NITROGEN 10 mg/dl (7-18); BUN/CREATININE RATIO 23.9 (10-20); CALCIUM 7.9 mg/dl (8.5-10.1); CARBON DIOXIDE 25 mmol/L (21-32); CHLORIDE 111 mmol/L (98-107); GLUCOSE 129 mg/dl (70-99); MAGNESIUM 2.4 mg/dl (1.8-2.4); PHOSPHORUS 2.3 mg/dl (2.5-4.9); POTASSIUM 4.1 mmol/L (3.5-5.1); SODIUM 143 mmol/L (136-145)
[2016-05-23] MEDS: MONTELUKAST SOD 10 MG TAB PO SCH (07:42)
[2016-05-23] MEDS: FLUTICASONE PROPIONATE NA SPR 16 GM BTL SCH (07:42)
[2016-05-23] MEDS: PANTOprazole SOD 40 MG TAB PO SCH (07:43)
[2016-05-23] MEDS: FLUOXETINE HCL 20 MG CAP PO SCH (07:43)
[2016-05-23] MEDS: MULTIVITAMIN TAB PO SCH (07:43)
[2016-05-23] MEDS: NICOTINE 14 MG/24 HR TDSY TD SCH (07:44)
[2016-05-23] MEDS: ENOXAPARIN 40 MG/0.4 ML SYR SQ SCH (07:46)
[2016-05-23] MEDS ORDERED: ACETAMINOPHEN 325 MG TAB ONE (07:50)
[2016-05-23] MEDS ORDERED: ACETAMINOPHEN 325 MG TAB PO ONE (07:51)
[2016-05-23] MEDS: ALBUT/IPRATROP 3MG/0.5MG NEB 3 ML VIAL INH SCH (08:21)
--- NOTE | 2016-05-23 08:23 | DIAGNOSTIC IMAGING REPORT ---
SINGLE VIEW CHEST CLINICAL HISTORY: Wheezing. FINDINGS: An AP, portable, upright chest radiograph is compared to study dated 05/22/2016. A right PICC line has been placed. The tip of the catheter projects over the right atrium. The cardiomediastinal silhouette is unremarkable. There are bibasilar airspace opacities. The upper lobes appear clear. No large pleural effusion or pneumothorax is seen. A healed right-sided rib fractures noted. IMPRESSION: 1. A right PICC line has been placed. The tip of the catheter projects over the right atrium. 2. Again seen are bibasilar airspace opacities, similar to yesterday. This could represent atelectasis, aspiration pneumonitis, and/or developing pneumonia. Clinical correlation will be required. Electronically signed by: Fracisco Valadez M.D. 05/23/2016 8:21 AM
--- NOTE | 2016-05-23 09:22 | Progress Note ---
Subjective Date of Service: May 23, 2016. Subjective Pt evaluation today including: conversation w/ patient, physical exam, lab review, conversation w/ sap security consultant, review of inpatient medication list Pain: no pain PO Intake: adequate Voiding: henderson catheter in place (will d/c) patient breathing is greatly improved, on room air this AM, no distress d/w pulmonary and ICU, will transfer to medical floor patient says that she plans to quit smoking, she and boyfriend are going to do it together starting today she says she tried using nasal steroid sprays in the past but caused nose bleeds she still has a cough, but denies feeling short of breath, infrequent wheezing Problem List Medical Problems: (1) Acute asthma exacerbation Status: Acute (2) Hypoxia Status: Acute (3) Pneumonia Status: Acute (4) Respiratory distress Status: Acute (5) Respiratory failure Status: Acute (6) Respiratory failure Status: Acute (7) Status asthmaticus Status: Acute Review of Systems Constitutional: + fatigue, + weakness Respiratory: + cough, + dyspnea on exertion, + shortness of breath, + wheezing , No dyspnea at rest, No hemoptysis, No sputum All Other Systems: Reviewed and Negative Medications Current Inpatient Medications Medications (Trade) Dose Ordered Sig/Shawn Route Start Time Stop Time Status Last Admin Dose Admin Enoxaparin Sodium (Lovenox Inj) 40 mg DAILY SQ 05/22/16 14:00 06/21/16 13:59 05/23/16 07:46 40 MG Pantoprazole Sodium (Protonix Tab) 40 mg DAILY PO 05/22/16 09:00 06/21/16 08:59 05/23/16 07:43 40 MG Nicotine (Nicoderm Cq 14MG Patch) 1 patch QAM TD 05/22/16 09:00 06/21/16 08:59 05/23/16 07:44 1 PATCH Miscellaneous (Remove Nicoderm Patch) 1 ea HS N/A 05/22/16 21:00 06/21/16 20:59 05/22/16 20:31 1 EA Clonidine HCl ([id number]-[id number]-2 0.1mg/24hr Patch) 1 patch Th@0900 TD 05/27/16 09:00 06/26/16 08:59 Fluoxetine HCl (Prozac Cap) 20 mg DAILY PO 05/22/16 09:00 06/21/16 08:59 05/23/16 07:43 20 MG Hydroxyzine HCl (Vistaril Tab) 50 mg Q6 PRN PO 05/22/16 08:00 06/21/16 07:59 Methocarbamol (Robaxin Tab) 750 mg Q6 PRN PO 05/22/16 08:00 06/21/16 07:59 Montelukast Sodium (Singulair Tab) 10 mg DAILY PO 05/22/16 09:00 06/21/16 08:59 05/23/16 07:42 10 MG Multivitamins (Multivitamin Tab) 1 tab DAILY PO 05/22/16 09:00 06/21/16 08:59 05/23/16 07:43 1 TAB Quetiapine Fumarate (seroQUEL TAB) 50 mg HS PO 05/22/16 21:00 06/21/16 20:59 05/22/16 20:00 50 MG Morphine Sulfate 1 mg 1 mg Q4H PRN IV 05/22/16 09:45 06/05/16 09:44 05/22/16 18:05 1 MG Acetaminophen 100 ml @ 400 mls/hr Q8H PRN IV 05/22/16 09:45 06/21/16 09:44 05/22/16 15:38 400 MLS/HR Sodium Chloride (Nss 1000ml) 1,000 ml @ 75 mls/hr [id number] IV 05/22/16 10:45 05/23/16 06:00 150 MLS/HR Heparin Sodium (Porcine) (Heparin 10 Unit/ ml 5 ml Flush) 5 ml PRN PRN FLUSH 05/22/16 11:00 06/21/16 10:59 Miscellaneous Information (Order Awaiting Action) 1 ea QS N/A 05/22/16 16:00 06/21/16 15:59 Miscellaneous Information (Order Awaiting Action) 1 ea QS N/A 05/22/16 16:00 06/21/16 15:59 Albuterol/ Ipratropium (Duoneb) 3 ml [id number] INH 05/22/16 12:00 06/21/16 11:59 05/23/16 08:21 3 ML Albuterol Sulfate (Ventolin 0.083% 2.5MG/3ML Neb) 2.5 mg Q2R PRN INH 05/22/16 11:00 06/21/16 10:59 05/22/16 19:45 2.5 MG Miscellaneous Information 1 ea 1 ea QS N/A 05/22/16 16:00 06/21/16 15:59 Potassium Phosphate/Sodium Chloride (Potassium Phosphate Inj/Nss 250ml) 255 ml @ 127.5 mls/ hr TODAY@1330 IV 05/22/16 13:30 06/21/16 13:29 05/22/16 14:16 127.5 MLS/HR Fluticasone Propionate 1 sprays 1 sprays BID NA 05/22/16 21:00 06/21/16 20:59 05/23/16 07:42 1 SPRAYS Methylprednisolone Sodium Succinate/ Syringe (Solu-Medrol IV/ Syringe) 0.96 ml @ 1.5 mls/min Q12 IV 05/23/16 21:00 06/22/16 20:59 UNV Levofloxacin (Levaquin Tab) 750 mg DAILY@11 PO 05/23/16 11:00 06/02/16 10:59 UNV Objective Vital Signs Date Time Temp Pulse Resp B/P Pulse Ox O2 Delivery O2 Flow Rate FiO2 05/23/16 08:21 80 22 94 Room Air 05/23/16 07:40 36.7 67 18 159/85 98 Room Air 05/23/16 07:30 98 Room Air 05/23/16 06:00 36.5 84 22 94 05/23/16 05:00 79 25 99 05/23/16 04:15 94 Nasal Cannula 2.0 05/23/16 04:10 94 25 129/93 97 05/23/16 04:00 88 22 97 05/23/16 03:00 88 26 97 05/23/16 02:00 36.7 91 19 98 Nasal Cannula 2.0 05/23/16 01:00 100 19 93 Nasal Cannula 2.0 05/23/16 00:00 102 27 94 Nasal Cannula 2.0 05/23/16 00:00 94 Nasal Cannula 2.0 05/22/16 23:14 100 19 123/91 86 Nasal Cannula 2.0 05/22/16 23:00 97 24 95 Nasal Cannula 2.0 05/22/16 22:00 103 18 96 Nasal Cannula 2.0 05/22/16 21:00 109 26 96 Nasal Cannula 4.0 05/22/16 20:58 104 24 136/86 94 Nasal Cannula 4.0 05/22/16 20:00 94 Nasal Cannula 4.0 05/22/16 20:00 103 27 94 Nasal Cannula 4.0 05/22/16 19:59 36.6 104 20 125/82 93 05/22/16 19:45 80 22 94 Nasal Cannula 4.0 05/22/16 19:00 109 21 96 05/22/16 18:00 108 19 131/79 100 05/22/16 16:59 107 25 122/81 100 05/22/16 16:35 99 98 35 05/22/16 16:00 36.9 05/22/16 16:00 100 BiPAP 40 05/22/16 15:59 112 21 129/76 100 05/22/16 15:44 98 22 100 BiPAP/CPAP 40 05/22/16 15:42 98 100 40 05/22/16 15:00 108 22 121/88 100 05/22/16 13:58 110 26 129/74 97 05/22/16 13:44 110 26 100 BiPAP/CPAP 40 05/22/16 12:59 110 27 115/75 97 05/22/16 12:00 100 BiPAP 40 05/22/16 12:00 37.0 05/22/16 11:59 111 22 107/73 97 05/22/16 11:18 114 26 100 BiPAP/CPAP 50 05/22/16 11:16 114 100 50 05/22/16 11:00 116 24 119/75 100 05/22/16 10:00 119 24 100 05/22/16 09:30 128 31 99 05/22/16 09:20 131 28 140/94 100 BiPAP 50 05/22/16 09:17 130 29 151/55 98 05/22/16 09:17 130 29 151/55 98 Physical Exam General Appearance: WD/WN, no apparent distress Eyes: normal inspection, EOMI, sclerae normal ENT: normal ENT inspection, hearing grossly normal, pharynx normal Neck: supple, no adenopathy, no JVD, trachea midline Respiratory/Chest: chest non-tender, no respiratory distress, no accessory muscle use, + wheezing (faint, bilateral, expiratory) Cardiovascular: no edema, no gallop, no JVD, no murmur, + tachycardia Abdomen: normal bowel sounds, non tender, soft, no organomegaly Extremities: normal range of motion, non-tender, normal inspection, no pedal edema, no calf tenderness Neurologic/Psychiatric: lead consultant II-XII nml as tested, no motor/sensory deficits, alert, normal mood/affect, oriented x 3 Skin: normal color, warm/dry, no rash Laboratory Results Last 24 Hours Test 05/22/16 09:30 05/22/16 11:17 05/22/16 11:18 05/22/16 11:20 Influenza Type A (RT-PCR) Neg for Influ A Influenza Type B (RT-PCR) Neg for Influ B Venous Blood pH 7.38 Venous Blood Partial Pressure CO2 46 mmHg Venous Blood Partial Pressure O2 47 mmHg Venous Blood HCO3 27 mmol/L Venous Blood Oxygen Saturation 82.3 % Venous Blood Base Excess 1.0 mmol/L White Blood Count 14.37 K/uL Red Blood Count 3.87 M/uL Hemoglobin 11.5 g/dL Hematocrit 34.2 % Mean Corpuscular Volume 88.4 fL Mean Corpuscular Hemoglobin 29.7 pg Mean Corpuscular Hemoglobin Concent 33.6 g/dl Platelet Count 267 K/uL Mean Platelet Volume 10.7 fL Neutrophils (%) (Auto) 95.6 % Lymphocytes (%) (Auto) 3.2 % Monocytes (%) (Auto) 0.6 % Eosinophils (%) (Auto) 0.3 % Basophils (%) (Auto) 0.1 % Neutrophils # (Auto) 13.74 K/uL Lymphocytes # (Auto) 0.46 K/uL Monocytes # (Auto) 0.08 K/uL Eosinophils # (Auto) 0.05 K/uL Basophils # (Auto) 0.01 K/uL RDW Standard Deviation 42.1 fL RDW Coefficient of Variation 13.1 % Immature Granulocyte % (Auto) 0.2 % Immature Granulocyte # (Auto) 0.03 K/uL Prothrombin Time 11.3 SECONDS Prothromb Time International Ratio 1.1 Activated Partial Thromboplast Time 26.6 SECONDS Partial Thromboplastin Ratio 1.0 Sodium Level 141 mmol/L Potassium Level 4.0 mmol/L Chloride Level 106 mmol/L Carbon Dioxide Level 27 mmol/L Anion Gap 8.0 mmol/L Blood Urea Nitrogen 15 mg/dl Creatinine 0.45 mg/dl Est Creatinine Clear Calc Drug Dose 176.1 ml/min Estimated GFR () > 150.0 Estimated GFR (Non- 135.4 BUN/Creatinine Ratio 32.7 Random Glucose 152 mg/dl Lactic Acid Level 1.2 mmol/L Calcium Level 7.9 mg/dl Phosphorus Level 1.5 mg/dl Magnesium Level 2.4 mg/dl Total Bilirubin 0.2 mg/dl Aspartate Amino Transf (AST/SGOT) 26 U/L Alanine Aminotransferase (ALT/SGPT) 43 U/L Alkaline Phosphatase 80 U/L Total Protein 6.6 gm/dl Albumin 3.0 gm/dl Globulin 3.6 gm/dl Albumin/Globulin Ratio 0.8 Bedside Glucose 151 mg/dl Test 05/22/16 16:51 05/22/16 21:33 05/23/16 05:30 Bedside Glucose 177 mg/dl 148 mg/dl White Blood Count 16.52 K/uL Red Blood Count 3.85 M/uL Hemoglobin 11.4 g/dL Hematocrit 33.9 % Mean Corpuscular Volume 88.1 fL Mean Corpuscular Hemoglobin 29.6 pg Mean Corpuscular Hemoglobin Concent 33.6 g/dl Platelet Count 230 K/uL Mean Platelet Volume 11.3 fL Neutrophils (%) (Auto) 90.9 % Lymphocytes (%) (Auto) 6.2 % Monocytes (%) (Auto) 2.7 % Eosinophils (%) (Auto) 0.0 % Basophils (%) (Auto) 0.0 % Neutrophils # (Auto) 15.01 K/uL Lymphocytes # (Auto) 1.03 K/uL Monocytes # (Auto) 0.44 K/uL Eosinophils # (Auto) 0.00 K/uL Basophils # (Auto) 0.00 K/uL RDW Standard Deviation 42.0 fL RDW Coefficient of Variation 13.1 % Immature Granulocyte % (Auto) 0.2 % Immature Granulocyte # (Auto) 0.04 K/uL Sodium Level 143 mmol/L Potassium Level 4.1 mmol/L Chloride Level 111 mmol/L Carbon Dioxide Level 25 mmol/L Anion Gap 7.0 mmol/L Blood Urea Nitrogen 10 mg/dl Creatinine 0.40 mg/dl Est Creatinine Clear Calc Drug Dose 198.1 ml/min Estimated GFR () > 150.0 Estimated GFR (Non- 140.8 BUN/Creatinine Ratio 23.9 Random Glucose 129 mg/dl Calcium Level 7.9 mg/dl Phosphorus Level 2.3 mg/dl Magnesium Level 2.4 mg/dl Assessment and Plan 30 yo female with status asthmaticus, acute respiratory failure - Status asthmaticus with acute hypoxic respiratory failure: much improved over 24 hours, off of BiPAP, breathing room air, no distress Solumedrol 60mg q6, will decrease to q12, continue Levaquin but change to PO today, nebulizers consult pulmonary medicine for recommendations - smoking cessation, started Flonase and azelastine nasal sprays transfer to medical floor today, d/c santiago, advance diet, increase activity - Tobacco abuse: nicotine patch, patient now interested in quitting, can provide with prescription for patches she can d/w PCP about medication options - ADHD: continue Seroquel - DVT prophylaxis: Lovenox - GI prophylaxis: Protonix, due to high dose steroids transfer to floor, possible d/c in the next 24-48 hours if she remains stable
[2016-05-23] MEDS ORDERED: SODIUM CHLORIDE 0.45% 1000ML 1,000 ML IV SCH (10:00)
[2016-05-23] MEDS ORDERED: LEVOFLOXACIN 750 MG TAB PO SCH (11:00)
[2016-05-23] MEDS: ALBUTEROL 0.083% NEBU SOLN 3 ML VIAL INH PRN (11:09)
--- NOTE | 2016-05-23 12:09 | CRITICAL CARE PROGRESS NOTE ---
DATE: 05/23/2016 This is a 30-year-old woman with a history of asthma and tobacco use, who presented to the Emergency Department yesterday morning with shortness of breath. She was admitted to the intensive care unit after receiving epinephrine, IV steroids, bronchodilators, and she received IV fluids. She was placed on BiPAP as well. Over the course of the past 24 hours, she has been on and off the BiPAP. She is coughing up some white sputum and was having a coughing fit when I went into her room. She recovered, but was mildly short of breath and had some wheezing. She is getting an albuterol treatment presently. She says she feels a lot better and is anxious to be transferred out of the intensive care unit. She is not eating very well and was ordered a diet this morning. PHYSICAL EXAMINATION: VITAL SIGNS: Maximum temperature 36.7, heart rate 80-100, respiratory rate 18-25, blood pressure 129-159/80s to 90s, oxygen saturation 94-99% on room air. GENERAL: She is awake, alert and coughing. LUNGS: She has good inspiratory effort and some bibasilar faint expiratory wheezes. HEART: Tachycardic, regular. ABDOMEN: Deferred due to her seated position. EXTREMITIES: Deferred as she has her legs folded underneath her. LABORATORIES: White blood cell count 16.52, hemoglobin 11.4, hematocrit 33.9, platelet 230. Sodium 143, potassium 4.1, chloride 111, CO2 of 25, BUN 10, creatinine 0.4, phosphorus 2.3, calcium 7.9. MEDICATIONS AND INFUSIONS: Albuterol, clonidine, Lovenox, Prozac, Flonase, Vistaril, Levaquin day 2, Robaxin, Solu-Medrol, Singulair, morphine, multivitamin, nicotine patch, Protonix, potassium phosphate, Seroquel, normal saline 75 mL per hour. IMAGING: Portable chest x-ray from this morning shows basilar infiltrates. IMPRESSION: 1. Acute exacerbation of chronic obstructive pulmonary disease. 2. Acute hypoxemic respiratory failure, improved. 3. Tobacco use. 4. Hypophosphatemia, improved. 5. History of attention deficit hyperactive disorder. PLAN: 1. Continue bronchodilators and IV corticosteroids, which have been weaned today. 2. BiPAP p.r.n. 3. Discontinue Ochoa. 4. Diet has been advanced. 5. IV fluids have been decreased. 6. Protonix has been changed to the enteral form. 7. Continue DVT prophylaxis with heparin. She is stable for transfer to the floor. Please call me with any questions or concerns.
[2016-05-23] MEDS ORDERED: NICO7DIS10 TOP (12:26)
[2016-05-23] MEDS ORDERED: SNG10 PO (12:26)
[2016-05-23] MEDS ORDERED: NICO14DI9 TOP (12:26)
[2016-05-23] MEDS ORDERED: PRD10 PO (12:26)
[2016-05-23] MEDS ORDERED: LEVO1TAB35 PO (12:26)
[2016-05-23] MEDS ORDERED: FLNIN (12:26)
[2016-05-23] MEDS: POTASSIUM PHOSPHATE INJ 15 MMOL in SODIUM CHLORIDE 0.9% 250ML 250 ML IV SCH (12:29)
--- NOTE | 2016-05-23 12:32 | Discharge Instructions ---
Discharge Instructions Admission Reason for Admission: Asthma With Acute Exacerbation Discharge Discharge Diagnosis / Problem: Asthma exacerbation Discharge Goals Goal(s): Decrease discomfort, Improve function Activity Recommendations Activity Limitations: resume your previous activity Lifting Limitations: none Exercise/Sports Limitations: as tolerated May Resume Sexual Activity: when tolerated Shower/Bathe: no limitations Driving or Machine Use: no limitations . Instructions / Follow-Up Instructions / Follow-Up Medications: - PREDNISONE: taper as follows, 40mg daily x 3 days then 30mg daily x 3 days then 20mg daily x 3 days then 10mg daily x 3 days - LEVAQUIN: 750mg daily, take until finished - MONTELUKAST: treats allergy component of asthma, take daily - FLONASE: use as instructed to decrease nasal irritation, prevent asthma attacks - NICOTINE PATCH: use over next month to help you quit cigarettes, start with 14mcg patch, use one daily for two weeks then decrease to 7mcg patch and use daily for 2 weeks. Do not smoke while on the patch. STOP SMOKING FOLLOW UP - CALL DR CLAY FOR FOLLOW UP IN ONE WEEK It is my recommendation that you stay in the hospital for an additional 24-48 hours, you are leaving against medical advice at this time Current Hospital Diet Patient's current hospital diet: Regular Diet Discharge Diet Recommended Diet: Regular Diet Pending Studies Studies pending at discharge: no Medical Emergencies . Who to Call and When: Medical Emergencies: If at any time you feel your situation is an emergency, please call 911 immediately. . Non-Emergent Contact Non-Emergency issues call your: Primary Care Provider . . "Provider Documentation" section prepared by Faustino Patel. VTE Core Measure Inpt VTE Proph given/why not?: Enoxaparin (Lovenox)SQ [place] Drug Monitoring Program Search Results: no issues identified
--- NOTE | 2016-05-23 14:33 | Discharge Summary ---
Discharge Summary Admission Date: May 22, 2016 at 08:11 Discharge Date: May 23, 2016 Discharge Disposition: Home Principal Diagnosis: Asthma exacerbation Problems/Secondary Diagnoses: Tobacco abuse Seasonal allergies ADHD Procedures: none Consultations: Ring Making Machine Operator Pulmonology Medication Reconciliation New Medications: Levofloxacin (Levaquin) 750 Mg Tab 750 MG PO DAILY for 5 Days, #5 TAB Nicotine (Nicotine) 14 Mg/24 Hr Dis 1 PATCH TOP DAILY for 14 Days, #14 PATCH Nicotine (Nicotine) 7 Mg/24 Hr Dis 1 PATCH TOP DAILY for 14 Days, #14 PATCH 0 Refills Prednisone (Prednisone) 10 Mg Tab 40 MG PO UD, #30 TABS 0 Refills Taper: start 1/2, 40mg daily x 4 days, 30mg daily x 3 days, 20mg daily x 3 days then 10mg daily x 3 days and stop Fluticasone Propionate (Fluticasone Propionate) 50 Mcg/Act Spr 1 SPRAYS NA BID, #1 BTL 3 Refills Montelukast Sod (Montelukast Sodium) 10 Mg Tab 10 MG PO DAILY, #30 TAB 3 Refills Continued Medications: Albuterol (Ventolin) Inh 2 PUFFS INH Q4 PRN for SOB/Wheezing Amphetamine-Dextroamphetamine 30MG (Adderall Xr 30MG) 1 Cap Cap 30 MG PO BID, CAP Baclofen (Lioresal) Unknown Strength Tab 1 TAB PO TID WAS 10MG IN SEPTEMBER OF 2015. Clonidine Hcl (Catapres) 0.1 Mg Tab 0.1 MG PO DAILY PRN for PRN Fluoxetine (Prozac) 20 Mg Cap 20 MG PO DAILY Fluticasone Furoate-Vilanterol (Breo Ellipta 200-25 Mcg/INH) 1 Inh Inh 1 PUFF INH DAILY Gabapentin (Gabapentin) Unknown Strength Cap 1 CAP PO DAILY Hydroxyzine Pamoate (Vistaril) 25 Mg Cap 25 MG PO QID Ipratropium-Albuterol (Duoneb) 3 Ml Nebu 1 TREATMENT INH Q4H PRN for Wheezing Multivitamin (Multivitamin) Tab 1 TAB PO DAILY, TAB Vit W/ Ferrous Fumara () 1 Tab Tab 1 TAB PO DAILY Quetiapine Fumarate (Seroquel) 50 Mg Tab 50 MG PO HS Discharge Exam Patient seen in the morning, was doing well, breathing comfortably on room air. Discussed further treatment with steroids and antibiotics. Plans to keep in the hospital. She told RN later in the day after transfer from ICU that she wanted to leave AMA. Talked with patient, explained that I would recommend staying in hospital and if she insisted on leaving I could not keep her here, I would provide with scripts. She still wanted to go home. Review of Systems: Constitutional: No chills, No fatigue, No fever, No problem reported, No sweats, No weakness, No weight loss Eyes: No diplopia, No discharge, No eye pain, No problem reported, No redness, No worsening of vision ENT: No dental problems, No hearing loss, No nasal symptoms, No problem reported, No sore throat, No tinnitus, No trouble swallowing, No unusual epistaxis Respiratory: + cough, + dyspnea on exertion, + wheezing, No dyspnea at rest , No hemoptysis, No shortness of breath, No sputum Cardiovascular: No PND, No chest pain, No claudication, No edema, No orthopnea, No palpitations, No problem reported Abdomen: No GI bleeding, No constipation, No diarrhea, No nausea, No pain, No problem reported, No vomiting Musculoskeletal: No calf pain, No joint pain, No muscle pain, No problem reported, No swelling Genitourinary - Female: No dysuria, No urinary frequency, No urinary incontinence, No urinary urgency Neurologic: No balance problems, No memory loss, No numbness/tingling, No paralysis, No problem reported, No vertigo, No weakness Psychiatric: No anhedonism, No anxiety, No depression symptoms, No insomnia , No problem reported, No substance abuse Endocrine: No excessive thirst, No excessive urination, No fatigue, No problem reported Hematologic / Lymphatic: No abnormal bleeding/bruising, No clotting problems , No night sweats, No problem reported, No swollen lymph nodes Integumentary: No bleeding, No color change, No itch, No new/changing skin lesions, No problem reported, No rash Physical Exam: General Appearance: WD/WN, no apparent distress Eyes: normal inspection, EOMI, sclerae normal ENT: normal ENT inspection, hearing grossly normal, pharynx normal Neck: supple, no adenopathy, no JVD, trachea midline Respiratory/Chest: chest non-tender, normal breath sounds, no respiratory distress, no accessory muscle use, + wheezing (end expiratory, vast improvement compared to yesterday) Cardiovascular: regular rate, rhythm, no edema, no gallop, no JVD, no murmur , normal peripheral pulses Abdomen / GI: normal bowel sounds, non tender, soft, no organomegaly Extremities: normal inspection, no calf tenderness, normal capillary refill , no pedal edema, normal range of motion Neurologic/Psychiatric: administrative office specialist II-XII nml as tested, no motor/sensory deficits , alert, normal mood/affect, normal reflexes, oriented x 3 Skin: normal color, warm/dry, no rash Lymphatic: no adenopathy Hospital Course 30 yo female with status asthmaticus, acute respiratory failure - Status asthmaticus with acute hypoxic respiratory failure: much improved over 24 hours, off of BiPAP, breathing room air, no distress Solumedrol 60mg q6, will change to Prednisone 40mg daily with taper as outpatient over next 2 weeks consult pulmonary medicine for recommendations - smoking cessation, started Flonase and azelastine nasal sprays patient will leave AMA prescribed Prednisone taper, Levaquin for a few more days, Flonase, Montelukast - Tobacco abuse: nicotine patch, patient now interested in quitting, can provide with prescription for patches she can d/w PCP about medication options - ADHD: continue Seroquel - DVT prophylaxis: Lovenox - GI prophylaxis: Protonix, due to high dose steroids will discharge AMA Total Time Spent: Greater than 30 minutes This includes examination of the patient, discharge planning, medication reconciliation, and communication with other providers. Discharge Instructions Please refer to the electronic Patient Visit Report (Discharge Instructions) for additional information. Follow-Up Dr. Fulton this week, she said she will call tomorrow Additional Copies To Anjel Zeng, Tanna.O.Int.Med.; Jesus Fulton M.D.
[2016-05-23] MEDS ORDERED: ALBUTEROL 0.083% NEBU SOLN 3 ML VIAL INH SCH (15:00)
[2016-05-23] MEDS ORDERED: METHYLPREDNISOLONE IV 60 MG in SYRINGE 0 ML IV SCH (18:00)
[2016-05-27] MEDS ORDERED: CLONIDINE HCL 0.1 MG/24 HR TRANSDERM SYS TD SCH (09:00)
[2016-05-27 23:53] LABS: COD UR NEGATIVE NG/ML (CUTOFF=50); HYDROCOD UR NEGATIVE NG/ML (CUTOFF=50); HYDROMOR UR NEGATIVE NG/ML (CUTOFF=50); HYDROXYETHYLFLURAZEPAM CONF NEGATIVE NG/ML (CUTOFF=50); HYDROXYMIDAZOLAM NEGATIVE NG/ML (CUTOFF=50); HYDROXYTRIAZOLAM CONF NEGATIVE NG/ML (CUTOFF=50); MORPHINE UR 3550 NG/ML (CUTOFF=50); NORHYDROCODONE CONF UR NEGATIVE NG/ML (CUTOFF=50); OXYMORPH UR NEGATIVE NG/ML (CUTOFF=50); TEMAZEPAM CONF NEGATIVE NG/ML (CUTOFF=50)
== END 2016-05-23 13:15 | disposition left against medical advice (07) | DRG 189 ==
LOC: ENRESERVDT → ENRESERVTM → C.EDB 06:11 → C.MSICU 08:11 → C.MS2W 05-23 11:33
PROVIDERS: ADMIT Internal Medicine; ATTEND Internal Medicine
DX: J96.01 Acute respiratory failure with hypoxia (principal); J45.901 Unspecified asthma with (acute) exacerbation; J45.902 Unspecified asthma with status asthmaticus; J44.1 Chronic obstructive pulmonary disease with (acute) exacerbation; J96.02 Acute respiratory failure with hypercapnia; F90.9 Attention-deficit hyperactivity disorder, unspecified type; F41.9 Anxiety disorder, unspecified; E83.39 Other disorders of phosphorus metabolism; F17.210 Nicotine dependence, cigarettes, uncomplicated; Z83.3 Family history of diabetes mellitus; Z82.49 Family history of ischemic heart disease and other diseases of the circulatory system; Z80.3 Family history of malignant neoplasm of breast; Z80.41 Family history of malignant neoplasm of ovary; Z82.5 Family history of asthma and other chronic lower respiratory diseases; Z79.899 Other long term (current) drug therapy

== ENCOUNTER 2016-10-26 23:38 | Emergency (ER) | payer OTHER ==
[~2016-10-26] VITALS: Ht 157.5 cm; Wt 75.6 kg
[~2016-10-26 23:38] MED LIST changes: +BACL10TA PO; -CETITAB27 PO; -CHOL100027 PO; +CTP/1 PO; +FLNIN; +FLUO20CA35 PO; +FLUT1INH7 INH; +HYDR1CAP85 PO; -MAGN400T5 PO; -MOME200A INH; -MONT1TAB3 PO; +MULT-506 PO; -NICO21DI35 TD; -NICO2LOZ PO; +NICO7DIS10 TOP; +NRN100 PO; -OMEG10007 PO; +PRD10 PO; -PRED10TA PO; +PREN1TAB29 PO; +QUET1TAB32 PO; +SNG10 PO
[2016-10-26 23:41] VITALS: TEMP 36.5; Ht 157.5 cm; Wt 75.6 kg
[2016-10-26] MEDS ORDERED: ALBUT/IPRATROP 3MG/0.5MG NEB 3 ML VIAL ONE (23:49)
[2016-10-26] MEDS ORDERED: METHYLPREDNISOLONE 125 MG VIAL IV STA (23:52)
[2016-10-27] MEDS ORDERED: ALBUT/IPRATROP 3MG/0.5MG NEB 3 ML VIAL INH ONE
[2016-10-27 00:04] VITALS: PULSE 107; O2SAT 90
--- NOTE | 2016-10-27 00:08 | EMERGENCY ROOM VISIT NOTE ---
History Report prepared by Dara: Lorelei Ortega Under the Supervision of: Dr. Ruslan Mcclain D.O. First contact with patient: 23:43 Chief Complaint: RESPIRATORY PROBLEMS Stated Complaint: ASTHMA History of Present Illness The patient is a 30 year old female who presents to the Emergency Room with complaints of an episode of shortness of breath starting two days ago. The patient states that she has a history of asthma and believes it is acting up from stirred up dust from moving. She reports that she came in to the ED tonight because her brother wasn't staying with her tonight and she was nervous to be alone. The patient states that she does have a nebulizer at home and took a dose before coming in. She reports that it does help her symptoms a little. The patient also reports a history of having a series of five shots of steroids over five days to help with her asthma symptoms in the past. She reports being a smoker, but notes that she has not smoked today. The patient complains of a cough and notes that it produces a white substance. She denies production of blood with her cough. The patient notes that she does not typically wear O2 at home. Source of History: patient Onset: two days ago Position: other (global) Quality: other (global) Timing: other (episode) Modifying Factors (Relieving): other (use of a nebulizer) Associated Symptoms: + cough (produces a white substance) Note: The patient denies a cough that produces blood. Review of Systems See HPI for pertinent positives and negatives. A total of ten systems were reviewed and were otherwise negative. Past Medical & Surgical Medical Problems: (1) Asthma (2) Asthma with acute exacerbation (3) Bronchitis Family History Cancer Diabetes mellitus Hypertension Social History Smoking Status: Current Every Day Smoker Alcohol Use: none Drug Use: none Marital Status: in relationship Housing Status: lives with significant other Occupation Status: unemployed Current/Historical Medications Scheduled Amphetamine-Dextroamphetamine 30MG (Adderall Xr 30MG), 30 MG PO BID Baclofen (Lioresal), 1 TAB PO TID Fluoxetine (Prozac), 20 MG PO DAILY Fluticasone Furoate-Vilanterol (Breo Ellipta 200-25 Mcg/INH), 1 PUFF INH DAILY Fluticasone Propionate (Fluticasone Propionate), 1 SPRAYS NA BID Gabapentin (Gabapentin), 1 CAP PO DAILY Hydroxyzine Pamoate (Vistaril), 25 MG PO QID Ipratropium-Albuterol (Duoneb), 1 TREATMENT INH Q4H Montelukast Sod (Montelukast Sodium), 10 MG PO DAILY Multivitamin (Multivitamin), 1 TAB PO DAILY Nicotine (Nicotine), 1 PATCH TOP DAILY Prednisone (Prednisone), 40 MG PO UD Prednisone (Prednisone), 50 MG PO DAILY Vit W/ Ferrous Fumara (), 1 TAB PO DAILY Quetiapine Fumarate (Seroquel), 50 MG PO HS Scheduled PRN Albuterol (Ventolin), 2 PUFFS INH Q4 PRN for SOB/Wheezing Clonidine Hcl (Catapres), 0.1 MG PO DAILY PRN for PRN Ipratropium-Albuterol (Duoneb), 1 TREATMENT INH Q4H PRN for Wheezing Allergies Coded Allergies: Dust (Verified Allergy, Severe, BREATHING DIFFICULTIES, 10/26/16) POLLEN (Verified Allergy, Severe, BREATHING DIFFICULTIES, 10/26/16) Pollen Extract (Verified Allergy, Severe, BREATHING DIFFICULTIES, 10/26/16) Cat Dander (Verified Allergy, Intermediate, BREATHING DIFFICULTIES, 10/26/16 ) CAT DANDER/SALIVA Dog Dander (Verified Allergy, Intermediate, BREATHING DIFFICULTIES, 10/26/16 ) DOG DANDER/SALIVA Grass (Verified Allergy, Intermediate, BREATHING DIFFICULTIES, 10/26/16) Physical Exam Vital Signs Date Time Temp Pulse Resp B/P (MAP) Pulse Ox O2 Delivery O2 Flow Rate FiO2 10/27/16 01:30 121 10/27/16 01:28 90 Nasal Cannula 4.0 10/27/16 01:13 87 Nasal Cannula 4.0 10/27/16 01:12 80 Room Air 10/27/16 01:03 120 18 113/71 92 Nasal Cannula 8.0 10/27/16 00:04 107 18 90 Nasal Cannula 2.0 10/26/16 23:53 97 10/26/16 23:49 87 Nasal Cannula 4.0 10/26/16 23:48 87 Nasal Cannula 4.0 10/26/16 23:48 87 Nasal Cannula 4.0 10/26/16 23:41 36.5 109 20 115/67 79 Room Air Physical Exam GENERAL: Awake, alert, well-appearing, in no distress. Pulse oximetry is hypoxia. HENT: Normocephalic, atraumatic. Oropharynx unremarkable. EYES: Normal conjunctiva. Sclera non-icteric. NECK: Supple. No nuchal rigidity. FROM. No JVD. RESPIRATORY: Wheezing and rhonchi bilaterally. CARDIAC: Tachycardic rate, normal rhythm. Extremities warm and well perfused. Pulses equal. ABDOMEN: Soft, non-distended. No tenderness to palpation. No rebound or guarding. No masses. RECTAL: Deferred. MUSCULOSKELETAL: Chest examination reveals no tenderness. The back is symmetrical on inspection without obvious abnormality. There is no CVA tenderness to palpation. No joint edema. LOWER EXTREMITIES: Calves are equal size bilaterally and non-tender. No edema. No discoloration. NEURO: Normal sensorium. No sensory or motor deficits noted. SKIN: No rash or jaundice noted. Medical Decision & Procedures ER Provider Diagnostic Interpretation: X ray results as stated below per my interpretation and radiologist interpretation. Other radiology results as stated below per my review and radiologist interpretation CHEST XRAY Findings: Negative for infiltrate and negative for pneumothorax. Laboratory Results 10/27/16 00:05 Red Blood Count 4.52, Mean Corpuscular Volume 92.7, Mean Corpuscular Hemoglobin 31.6, Mean Corpuscular Hemoglobin Concent 34.1, Mean Platelet Volume 11.4, Neutrophils (%) (Auto) 55.1, Lymphocytes (%) (Auto) 34.5, Monocytes (%) (Auto) 4.7, Eosinophils (%) (Auto) 4.7, Basophils (%) (Auto) 0.9, Neutrophils # (Auto) 4.22, Lymphocytes # (Auto) 2.64, Monocytes # (Auto) 0.36, Eosinophils # (Auto) 0.36, Basophils # (Auto) 0.07 10/27/16 00:05 Test 10/27/16 00:05 10/27/16 01:12 White Blood Count 7.66 K/uL (4.8-10.8) Red Blood Count 4.52 M/uL (4.2-5.4) Hemoglobin 14.3 g/dL (12.0-16.0) Hematocrit 41.9 % (37-47) Mean Corpuscular Volume 92.7 fL (80-100) Mean Corpuscular Hemoglobin 31.6 pg (25-34) Mean Corpuscular Hemoglobin Concent 34.1 g/dl (32-36) Platelet Count 240 K/uL (130-400) Mean Platelet Volume 11.4 fL (7.4-10.4) Neutrophils (%) (Auto) 55.1 % Lymphocytes (%) (Auto) 34.5 % Monocytes (%) (Auto) 4.7 % Eosinophils (%) (Auto) 4.7 % Basophils (%) (Auto) 0.9 % Neutrophils # (Auto) 4.22 K/uL (1.4-6.5) Lymphocytes # (Auto) 2.64 K/uL (1.2-3.4) Monocytes # (Auto) 0.36 K/uL (0.11-0.59) Eosinophils # (Auto) 0.36 K/uL (0-0.5) Basophils # (Auto) 0.07 K/uL (0-0.2) RDW Standard Deviation 41.0 fL (36.4-46.3) RDW Coefficient of Variation 12.2 % (11.5-14.5) Immature Granulocyte % (Auto) 0.1 % Immature Granulocyte # (Auto) 0.01 K/uL (0.00-0.02) Anion Gap 8.0 mmol/L (3-11) Est Creatinine Clear Calc Drug Dose 131.7 ml/min Estimated GFR () 142.8 Estimated GFR (Non- 123.2 BUN/Creatinine Ratio 19.1 (10-20) Calcium Level 8.6 mg/dl (8.5-10.1) Total Bilirubin 0.3 mg/dl (0.2-1) Aspartate Amino Transf (AST/SGOT) 43 U/L (15-37) Alanine Aminotransferase (ALT/SGPT) 53 U/L (12-78) Alkaline Phosphatase 72 U/L (45-117) Total Protein 7.3 gm/dl (6.4-8.2) Albumin 3.9 gm/dl (3.4-5.0) Globulin 3.4 gm/dl (2.5-4.0) Albumin/Globulin Ratio 1.1 (0.9-2) Laboratory results reviewed by me Medications Administered Medications (Trade) Dose Ordered Sig/Shawn Route Start Time Stop Time Status Last Admin Dose Admin Albuterol/ Ipratropium (Duoneb) 3 ml STK-MED ONCE .ROUTE 10/26/16 23:49 10/26/16 23:50 DC 10/26/16 23:54 3 ML Albuterol/ Ipratropium (Duoneb) 12 ml ONE ONCE INH 10/27/16 00:00 10/27/16 00:01 DC 10/27/16 00:04 12 ML Methylprednisolone Sodium Succinate (Solu-Medrol IV) 125 mg NOW STAT IV 10/26/16 23:52 10/26/16 23:54 DC 10/27/16 00:07 125 MG ECG Indication: SOB/dyspnea Rate (beats per minute): 109 Rhythm: sinus tachycardia Findings: no acute ischemic change, other (normal interval, normal axis) ED Course 2347: The patient was evaluated in room B4B. A complete history and physical exam was performed. 2349: Ordered Duoneb 3 ml .ROUTE. 2352: Ordered Soul-Medrol IV 125 mg IV. 0000: Ordered Duoneb 12 ml INH. 0048: I reevaluated the patient and she is feeling much better. She is still mildly hypoxic, but is in no distress. 0109: I reevaluated the patient and she is still at 82% O2. She is in no distress and was still wheezing upon exam. 0130: I spoke with the patient about being evaluated for further treatment due to her hypoxia. She does not want to stay and is signing out against medical advice. The patient will be discharged home. Patient will be signing out AGAINST MEDICAL ADVICE. I discussed the evaluation with the patient and will prescribe her prednisone and DuoNebs. She was instructed to return for increased shortness of breath or for any concerns as I recommended that she be admitted for hypoxia and asthma exacerbation to the hospital. Medical Decision Medication Reconciliation: I attest that I have personally reviewed the patient' s current medication list. Blood pressure screening: Patient was found to have normal blood pressure on screening and does not require follow-up. Differential diagnoses include upper respiratory infection, asthma, pneumonia, bronchitis. Impression Primary Impression: Asthma with acute exacerbation Additional Impression: Hypoxia Scribe Attestation The scribe's documentation has been prepared under my direction and personally reviewed by me in its entirety. I confirm that the note above accurately reflects all work, treatment, procedures, and medical decision making performed by me. Departure Information Dispostion Against Medical Advice Prescriptions Ipratropium-Albuterol (DUONEB) 3 Ml Nebu 1 TREATMENT INH Q4H, #20 INHA Prov: Ruslan Mcclain, DO 10/27/16 Prednisone (Prednisone) 50 Mg Tab 50 MG PO DAILY for 4 Days, #4 TAB Prov: Ruslan Mcclain, DO 10/27/16 Referrals No Doctor, Assigned (PCP) Forms HOME CARE DOCUMENTATION FORM, IMPORTANT VISIT INFORMATION, WORK / SCHOOL INSTRUCTIONS Patient Instructions Asthma, My [facility] Problem Qualifiers
[2016-10-27 00:22] LABS: BASO % 0.9 %; BASO ABS # 0.07 K/uL (0-0.2); COMPLETE YES; EOS % 4.7 %; HEMATOCRIT 41.9 % (37-47); IG% 0.1 %; LYMPH % 34.5 %; LYMPH ABS # 2.64 K/uL (1.2-3.4); MEAN CELL VOLUME 92.7 fL (80-100); MEAN CORPUSCULAR HEMOGLOBIN 31.6 pg (25-34); MEAN CORPUSCULAR HGB CONC 34.1 g/dl (32-36); MEAN PLATELET VOLUME 11.4 fL (7.4-10.4); MONO % 4.7 %; NEUT % 55.1 %; PLATELET COUNT 240 K/uL (130-400); RED BLOOD COUNT 4.52 M/uL (4.2-5.4); WHITE BLOOD COUNT 7.66 K/uL (4.8-10.8)
[2016-10-27 00:47] LABS: BUN/CREATININE RATIO 19.1 (10-20); CALCIUM 8.6 mg/dl (8.5-10.1); CREATININE 0.6 mg/dl (0.60-1.20); POTASSIUM 3.8 mmol/L (3.5-5.1)
[2016-10-27 00:50] LABS: ALB/GLOB RATIO 1.1 (0.9-2)
[2016-10-27 01:28] VITALS: O2SAT 90
[2016-10-27] MEDS ORDERED: IPRASOL4 INH (01:45)
[2016-10-27] MEDS ORDERED: PRED50TA PO (01:45)
[2016-10-27 01:51] VITALS: BP 113/71; PULSE 117; O2SAT 89
--- NOTE | 2016-10-27 06:47 | DIAGNOSTIC IMAGING REPORT ---
CHEST ONE VIEW PORTABLE CLINICAL HISTORY: sob dyspnea COMPARISON STUDY: 05/23/2016 FINDINGS: The bones soft tissues and hemidiaphragms are normal. The cardiomediastinal silhouette is normal. The lungs are clear. The pulmonary vasculature is normal. IMPRESSION: Negative chest. Electronically signed by: Pal Velasquez M.D. 10/27/2016 6:45 AM Dictated Date/Time: 10/27/2016 6:44 AM
[2017-03-05] MEDS ORDERED: SYMIN160 INH (15:38)
[2017-03-05] MEDS ORDERED: AZITTAB PO (15:38)
[2017-03-05] MEDS ORDERED: PRED10TA PO (15:38)
[2017-03-17] MEDS ORDERED: EPP3/2 IM (10:47)
[2017-03-17] MEDS ORDERED: DIPH1TAB87 PO (10:47)
[2017-03-17] MEDS ORDERED: METH4PAK PO (10:47)
== END 2016-10-27 01:49 | disposition left against medical advice (07) ==
LOC: C.EDB 23:39
DX: J45.901 Unspecified asthma with (acute) exacerbation (principal); R09.02 Hypoxemia; F17.210 Nicotine dependence, cigarettes, uncomplicated; Z80.9 Family history of malignant neoplasm, unspecified; Z83.3 Family history of diabetes mellitus; Z82.49 Family history of ischemic heart disease and other diseases of the circulatory system; Z79.899 Other long term (current) drug therapy

== ENCOUNTER → 2016-12-16 | Outpatient (CLI) | payer OTHER ==
[~2016-12-16] MED LIST changes: +AMOX875T PO; +CETI10TA84 PO; +SYMIN160 INH
== END | disposition home or self-care (01) ==
LOC: C.PAPS 08:23
PROVIDERS: ATTEND Physician Assistant
DX: Z12.4 Encounter for screening for malignant neoplasm of cervix (principal)

== ENCOUNTER → 2016-12-16 | Outpatient (CLI) | payer OTHER ==
[2016-12-19 14:08] LABS: CHLAMYDIA TRACH RNA*** NOT DETECTED (NOT DETECTED); GC (NEIS GONORRHOEAE)RNA** NOT DETECTED (NOT DETECTED)
== END | disposition home or self-care (01) ==
LOC: C.LABSPEC 17:40
PROVIDERS: ATTEND Physician Assistant
DX: Z11.3 Encounter for screening for infections with a predominantly sexual mode of transmission (principal)

== ENCOUNTER 2017-01-18 19:48 | Emergency (ER) | payer OTHER ==
[~2017-01-18] VITALS: Ht 154.9 cm; Wt 68.9 kg
[~2017-01-18 19:48] MED LIST changes: -AMOX875T PO; -CETI10TA84 PO; -SYMIN160 INH
[2017-01-18 19:52] VITALS: Ht 154.9 cm; Wt 68.9 kg
[2017-01-18] MEDS ORDERED: SODIUM CHLORIDE 0.9% 1000ML 1,000 ML IV STA (20:09)
[2017-01-18] MEDS ORDERED: ACETAMINOPHEN 500 MG TAB PO STA (20:09)
[2017-01-18] MEDS ORDERED: CETI10TA84 PO (20:13)
[2017-01-18] MEDS ORDERED: SYMIN160 INH (20:13)
[2017-01-18] MEDS ORDERED: AMOX875T PO (20:13)
[2017-01-18] MEDS ORDERED: ALBUT/IPRATROP 3MG/0.5MG NEB 3 ML VIAL INH ONE (20:15)
--- NOTE | 2017-01-18 20:30 | EMERGENCY ROOM VISIT NOTE ---
History Report prepared by Dara: Steven Carrera Under the Supervision of: Dr. Antoni Kerr M.D. First contact with patient: 19:57 Chief Complaint: MENTAL HEALTH EVALUATION Stated Complaint: MHU History of Present Illness The patient is a 31 year old female who presents to the Emergency Room with complaints of a constant fever beginning earlier today. Police state the patient went to the [facility] this morning as a walk-in. They report she was asked to fill out paperwork. Police note that when she was asked if she had a suicidal plan, she wrote it down, but then, she scribbled it out to the point that [facility] could not read it. They state the patient said she would be back in later. Police report that three hours later, they went to her house because she did not return to the [facility]. They note that the patient showed up at her house, and they called [facility] to see if they would like to complete their evaluation. Police state Tyler told them the evaluation was complete, other than the suicidal plan portion. They report the patient has a large drug problem , and she just got out of [facility]. The patient states that she went to the [facility] because she wanted someone to talk to. She reports that she also wanted to maybe start anti-depressants. The patient denies suicidal and homicidal ideations. She notes that she works for the [employer]. The patient states that she has been experiencing problems with her boyfriend, and she feels like everyone is expecting a lot from her. She reports that she currently has a headache, but she attributes it to her crying. The patient denies chills, sorethroat, cough, and urinary symptoms. She notes that she is currently on antibiotics and prednisone for a sinus infection that were prescribed by her global implementation manager. The patient states that she has a history of smoking and asthma. She reports that she has an inhaler at home for her asthma. Source of History: patient, police Onset: eariler this morning Position: head Quality: other (fever) Timing: constant Associated Symptoms: + headache, No chills, No sorethroat, No cough, No urinary symptoms Note: Denies: suicidal ideations, homicidal ideations Review of Systems See HPI for pertinent positives & negatives. A total of 10 systems reviewed and were otherwise negative. Past Medical & Surgical Medical Problems: (1) Asthma (2) Asthma with acute exacerbation (3) Bronchitis Family History Cancer Diabetes mellitus Hypertension Social History Smoking Status: Current Every Day Smoker Alcohol Use: none Drug Use: none Marital Status: in relationship Housing Status: lives with significant other Occupation Status: unemployed Current/Historical Medications Scheduled Amoxicillin & Pot Clavulanate (Augmentin 875-125 mg), 1 TAB PO Q12 Amphetamine-Dextroamphetamine 30MG (Adderall Xr 30MG), 30 MG PO BID Budesonide/Formoterol Fumarate (Symbicort 160/4.5 Inhaler ), 2 PUFFS INH BID Cetirizine (Zyrtec), 10 MG PO DAILY Fluticasone Propionate (Fluticasone Propionate), 1 SPRAYS NA BID Multivitamin (Multivitamin), 1 TAB PO DAILY Prednisone (Prednisone), 40 MG PO UD Scheduled PRN Albuterol (Ventolin), 2 PUFFS INH Q4 PRN for SOB/Wheezing Ipratropium-Albuterol (Duoneb), 1 TREATMENT INH Q4H PRN for Wheezing Allergies Coded Allergies: Dust (Verified Allergy, Severe, BREATHING DIFFICULTIES, 01/18/17) POLLEN (Verified Allergy, Severe, BREATHING DIFFICULTIES, 01/18/17) Pollen Extract (Verified Allergy, Severe, BREATHING DIFFICULTIES, 01/18/17) Cat Dander (Verified Allergy, Intermediate, BREATHING DIFFICULTIES, ) CAT DANDER/SALIVA Dog Dander (Verified Allergy, Intermediate, BREATHING DIFFICULTIES, ) DOG DANDER/SALIVA Grass (Verified Allergy, Intermediate, BREATHING DIFFICULTIES, 01/18/17) Physical Exam Vital Signs Date Time Temp Pulse Resp B/P (MAP) Pulse Ox O2 Delivery O2 Flow Rate FiO2 01/18/17 22:48 133 18 126/88 98 01/18/17 22:11 37.0 103 16 139/88 100 Nebulizer 01/18/17 21:47 100 18 123/80 100 Room Air 01/18/17 21:16 95 01/18/17 21:13 81 16 96 Room Air 01/18/17 21:03 99 Room Air 01/18/17 19:52 38.2 114 16 131/90 94 Room Air Physical Exam GENERAL: Patient is a healthy-appearing well-nourished 31 year old female HEAD: Normocephalic atraumatic EYES: Ocular movements intact pupils equal and react to light OROPHARYNX mucous membranes are moist no exudates present no erythema or edema present NECK: Supple no nuchal rigidity CHEST: Good equal expansion LUNGS: Extreme wheezing on the right CARDIAC: Normal S1 and S2 ABDOMEN: Soft nontender no guarding BACK: No CVA tenderness EXTREMITIES: No pain upon palpation normal muscle strength in all groups no clubbing cyanosis or edema NEURO: Patient is following commands and answering questions appropriately. Alert and oriented x3 Cranial Nerves 2-12 grossly intact Medical Decision & Procedures ER Provider Diagnostic Interpretation: X-ray results as stated below per interpretation by me and the radiologist: CHEST ONE VIEW PORTABLE CLINICAL HISTORY: Fever. Wheezing. COMPARISON STUDY: 10/27/2016 FINDINGS: The cardiac and mediastinal contours are normal. There is no evidence of focal pulmonary consolidation. There is no evidence of failure. No pleural effusions are visualized.[ IMPRESSION: No active disease in the chest. Electronically signed by: Fabricoi Sawyer M.D. 01/18/2017 8:27 PM Dictated Date/Time: 01/18/2017 8:27 PM Laboratory Results 01/18/17 20:22 Red Blood Count 4.90, Mean Corpuscular Volume 93.7, Mean Corpuscular Hemoglobin 32.9, Mean Corpuscular Hemoglobin Concent 35.1, Mean Platelet Volume 12.1, Neutrophils (%) (Auto) 75.1, Lymphocytes (%) (Auto) 20.0, Monocytes (%) (Auto) 3.8, Eosinophils (%) (Auto) 0.5, Basophils (%) (Auto) 0.1, Neutrophils # (Auto) 13.94, Lymphocytes # (Auto) 3.72, Monocytes # (Auto) 0.70, Eosinophils # (Auto) 0.09, Basophils # (Auto) 0.02 01/18/17 20:22 Test 01/18/17 20:22 01/18/17 20:51 01/18/17 20:55 White Blood Count 18.56 K/uL (4.8-10.8) Red Blood Count 4.90 M/uL (4.2-5.4) Hemoglobin 16.1 g/dL (12.0-16.0) Hematocrit 45.9 % (37-47) Mean Corpuscular Volume 93.7 fL (80-100) Mean Corpuscular Hemoglobin 32.9 pg (25-34) Mean Corpuscular Hemoglobin Concent 35.1 g/dl (32-36) Platelet Count 299 K/uL (130-400) Mean Platelet Volume 12.1 fL (7.4-10.4) Neutrophils (%) (Auto) 75.1 % Lymphocytes (%) (Auto) 20.0 % Monocytes (%) (Auto) 3.8 % Eosinophils (%) (Auto) 0.5 % Basophils (%) (Auto) 0.1 % Neutrophils # (Auto) 13.94 K/uL (1.4-6.5) Lymphocytes # (Auto) 3.72 K/uL (1.2-3.4) Monocytes # (Auto) 0.70 K/uL (0.11-0.59) Eosinophils # (Auto) 0.09 K/uL (0-0.5) Basophils # (Auto) 0.02 K/uL (0-0.2) RDW Standard Deviation 42.5 fL (36.4-46.3) RDW Coefficient of Variation 12.5 % (11.5-14.5) Immature Granulocyte % (Auto) 0.5 % Immature Granulocyte # (Auto) 0.09 K/uL (0.00-0.02) Anion Gap 9.0 mmol/L (3-11) Est Creatinine Clear Calc Drug Dose 102.8 ml/min Estimated GFR () 132.5 Estimated GFR (Non- 114.3 BUN/Creatinine Ratio 16.8 (10-20) Calcium Level 9.6 mg/dl (8.5-10.1) Total Bilirubin 0.3 mg/dl (0.2-1) Direct Bilirubin 0.1 mg/dl (0-0.2) Aspartate Amino Transf (AST/SGOT) 15 U/L (15-37) Alanine Aminotransferase (ALT/SGPT) 20 U/L (12-78) Alkaline Phosphatase 58 U/L (45-117) Total Protein 8.0 gm/dl (6.4-8.2) Albumin 4.1 gm/dl (3.4-5.0) Ethyl Alcohol mg/dL < 3.0 mg/dl (0-3) Urine Color YELLOW Urine Appearance CLEAR (CLEAR) Urine pH 6.5 (4.5-7.5) Urine Specific [place] 1.010 (1.000-1.030) Urine Protein NEG (NEG) Urine Glucose (UA) NEG (NEG) Urine Ketones NEG (NEG) Urine Occult Blood NEG (NEG) Urine Nitrite NEG (NEG) Urine Bilirubin NEG (NEG) Urine Urobilinogen NEG (NEG) Urine Leukocyte Esterase TRACE (NEG) Urine WBC (Auto) 1-5 /hpf (0-5) Urine RBC (Auto) 0-4 /hpf (0-4) Urine Hyaline Casts (Auto) 1-5 /lpf (0-5) Urine Epithelial Cells (Auto) 10-20 /lpf (0-5) Urine Bacteria (Auto) NEG (NEG) Urine Test NEG (NEG) Urine Opiates Screen POS (NEG) Urine Methadone, Qualitative NEG (NEG) Urine Barbiturates NEG (NEG) Urine Phencyclidine (PCP) Level NEG (NEG) Ur Amphetamine/Methamphetamine POS (NEG) MDMA (Ecstasy) Screen POS (NEG) Urine Benzodiazepines Screen NEG (NEG) Urine Cocaine Metabolite NEG (NEG) Urine Marijuana (THC) NEG (NEG) Labs reviewed by ED physician. Medications Administered Medications (Trade) Dose Ordered Sig/Shawn Route Start Time Stop Time Status Last Admin Dose Admin Albuterol/ Ipratropium (Duoneb) 12 ml ONE ONCE INH 01/18/17 20:15 01/18/17 20:16 DC 01/18/17 20:15 12 ML Acetaminophen (Tylenol Tab) 1,000 mg NOW STAT PO 01/18/17 20:09 01/18/17 20:12 DC 01/18/17 21:05 1,000 MG Sodium Chloride 1,000 ml @ 999 mls/hr Q1H1M STAT IV 01/18/17 20:09 01/18/17 21:09 DC 01/18/17 21:22 999 MLS/HR Amoxicillin/ Clavulanate Potassium (Augmentin Tab) 875 mg ONE ONCE PO 01/18/17 21:45 01/18/17 21:46 DC 01/18/17 21:46 875 MG ED Course 2000: Past medical records reviewed. The patient was evaluated in room A06. A complete history and physical examination was performed. 2009: Ordered Sodium Chloride 1000 ml @ 999 mls/hr IV, Tylenol Tab 1000 mg PO 2015: Ordered Duoneb 12ml INH 2145: Ordered Augmentin Tab 875mg PO 2215: I spoke with case management again. The patient states her fire control officer was going to be testing for drugs this morning. She reports that she was scared because she knew that she was going to test positive. The patient notes that her boyfriend told her to go the [facility] and say you are suicidal to get out of the drug screening. She states when she got to the [facility], they told her she needed to provide a urine sample. The patient reports that she panicked, and scribbled out the suicidal plan to the point no one could read it. Medical Decision Differential diagnosis: Etiologies such as viral syndrome, otitis, pharyngitis, pneumonia, influenza, meningitis, urinary tract infection, sepsis, bacteremia, as well as others were entertained. This is a 31-year-old female who presents emergency department complaining of a 302 warrant. The patient went to the [facility] today to avoid a drug test and stated she was suicidal. When she was filling out the paperwork she got nervous when they told her they would require a urine sample so she left. The patient admits that she is not suicidal. She did submit to blood in urine test here. She does have a high elevation in her white blood count cell count at 18. The patient is already on Augmentin for this. The patient was given a DuoNeb breathing treatment in the emergency department. She was medically cleared by me. Repeat examination revealed much improvement the patient's symptoms. The patient was evaluated by case management who felt that the patient was well enough to be discharged home. Patient was discharged into the care of her mother and promised to return if her symptoms worsened. Impression Primary Impression: Bronchitis Additional Impression: Fever Scribe Attestation The scribe's documentation has been prepared under my direction and personally reviewed by me in its entirety. I confirm that the note above accurately reflects all work, treatment, procedures, and medical decision making performed by me. Departure Information Dispostion Home / Self-Care Referrals No Doctor, Assigned (PCP) Forms HOME CARE DOCUMENTATION FORM, IMPORTANT VISIT INFORMATION Patient Instructions Bronchitis Acute, My [facility] Additional Instructions Continue taking Augmentin Follow up with PCP You have been examined and treated today on an emergency basis only. This is not a substitute for, or an effort to provide, complete comprehensive medical care. It is impossible to recognize and treat all injuries or illnesses in a single emergency department visit. It is therefore important that you follow up closely with your PCP. Call as soon as possible for an appointment. Thank you for your time and consideration. I look forward to speaking with you again soon. Please don't hesitate to call us if you have any questions. Problem Qualifiers Additional Impression: Fever Fever type: unspecified Qualified Codes: R50.9 - Fever, unspecified
[2017-01-18 21:02] LABS: BASO % 0.1 %; BASO ABS # 0.02 K/uL (0-0.2); COMPLETE YES; EOS % 0.5 %; HEMATOCRIT 45.9 % (37-47); IG% 0.5 %; LYMPH ABS # 3.72 K/uL (1.2-3.4); MEAN CELL VOLUME 93.7 fL (80-100); MEAN CORPUSCULAR HEMOGLOBIN 32.9 pg (25-34); MEAN CORPUSCULAR HGB CONC 35.1 g/dl (32-36); MEAN PLATELET VOLUME 12.1 fL (7.4-10.4); MONO % 3.8 %; NEUT % 75.1 %; PLATELET COUNT 299 K/uL (130-400); WHITE BLOOD COUNT 18.56 K/uL (4.8-10.8)
[2017-01-18 21:03] VITALS: O2SAT 99
[2017-01-18 21:13] VITALS: PULSE 81; O2SAT 96
[2017-01-18 21:17] LABS: URINE APPEARANCE CLEAR (CLEAR); URINE BILIRUBIN NEG (NEG); URINE COLOR YELLOW; URINE NITRITE NEG (NEG); URINE PH 6.5 (4.5-7.5); UROBILINOGEN NEG (NEG)
[2017-01-18 21:18] LABS: MANUAL MICROSCOPIC REQUIRED? NO; REVIEW REQ? NO
[2017-01-18 21:20] LABS: BUN/CREATININE RATIO 16.8 (10-20); CALCIUM 9.6 mg/dl (8.5-10.1); CREATININE 0.71 mg/dl (0.60-1.20); POTASSIUM 3.4 mmol/L (3.5-5.1)
[2017-01-18 21:44] LABS: BENZODIAZEPINE, URINE NEG (NEG); COCAINE,URINE NEG (NEG); PHENCYCLIDINE, URINE NEG (NEG)
[2017-01-18] MEDS ORDERED: AMOXICILLIN/CLAVULANATE TAB 875 MG TAB PO ONE (21:45)
[2017-01-18 22:11] VITALS: TEMP 37
[2017-01-18 22:48] VITALS: BP 126/88; PULSE 133; O2SAT 98
[2017-01-22 19:37] LABS: COD UR 232 NG/ML (CUTOFF=50); HYDROCOD UR NEGATIVE NG/ML (CUTOFF=50); HYDROMOR UR NEGATIVE NG/ML (CUTOFF=50); MORPHINE UR >20000 NG/ML (CUTOFF=50); NORHYDROCODONE CONF UR NEGATIVE NG/ML (CUTOFF=50); OXYMORPH UR NEGATIVE NG/ML (CUTOFF=50)
[2017-03-05] MEDS ORDERED: SYMIN160 INH (15:38)
[2017-03-05] MEDS ORDERED: AZITTAB PO (15:38)
[2017-03-05] MEDS ORDERED: PRED10TA PO (15:38)
== END 2017-01-18 22:48 | disposition home or self-care (01) ==
LOC: C.EDB 19:50 → C.EDA 22:48
DX: J40 Bronchitis, not specified as acute or chronic (principal); R50.9 Fever, unspecified; J45.909 Unspecified asthma, uncomplicated; F17.210 Nicotine dependence, cigarettes, uncomplicated; Z79.899 Other long term (current) drug therapy; Z80.9 Family history of malignant neoplasm, unspecified; Z83.3 Family history of diabetes mellitus; Z82.49 Family history of ischemic heart disease and other diseases of the circulatory system

== ENCOUNTER 2017-03-05 09:53 | Inpatient (IN) | payer OTHER ==
[~2017-03-05] VITALS: Ht 154.9 cm; Wt 65.5 kg
[~2017-03-05 09:53] MED LIST changes: +AMOX875T PO; -BACL10TA PO; +CETI10TA84 PO; -CTP/1 PO; -FLUO20CA35 PO; -FLUT1INH7 INH; -HYDR1CAP85 PO; -NICO7DIS10 TOP; -NRN100 PO; -PREN1TAB29 PO; -QUET1TAB32 PO; -SNG10 PO; +SYMIN160 INH
[2017-03-05 09:55] VITALS: Ht 154.9 cm; Wt 65.5 kg
[2017-03-05] MEDS ORDERED: MAGNESIUM SULFATE 1GM / D5W 1 GM BAG IV STA (10:02)
[2017-03-05] MEDS ORDERED: METHYLPREDNISOLONE 125 MG VIAL IV STA (10:02)
[2017-03-05] MEDS ORDERED: ALBUT/IPRATROP 3MG/0.5MG NEB 3 ML VIAL INH STA (10:02)
[2017-03-05] MEDS ORDERED: ALBUT/IPRATROP 3MG/0.5MG NEB 3 ML VIAL ONE (10:03)
[2017-03-05] MEDS ORDERED: LEVALBUTEROL 1.25MG/3ML NEB INH STA (10:10)
[2017-03-05] MEDS ORDERED: IPRATROPIUM BROMIDE NEB SOLN 0.02% 2.5 ML VIAL INH STA (10:10)
[2017-03-05 10:14] LABS: BASO % 0.5 %; EOS % 6.6 %; HEMATOCRIT 41.6 % (37-47); LYMPH % 26.1 %; MEAN CELL VOLUME 89.8 fL (80-100); MEAN CORPUSCULAR HEMOGLOBIN 31.5 pg (25-34); MEAN CORPUSCULAR HGB CONC 35.1 g/dl (32-36); MEAN PLATELET VOLUME 11.8 fL (7.4-10.4); MONO % 4.8 %; NEUT % 61.8 %; PLATELET COUNT 274 K/uL (130-400); RED BLOOD COUNT 4.63 M/uL (4.2-5.4); WHITE BLOOD COUNT 13.08 K/uL (4.8-10.8)
[2017-03-05 10:15] LABS: BASO ABS # 0.06 K/uL (0-0.2); COMPLETE YES; IG% 0.2 %; LYMPH ABS # 3.41 K/uL (1.2-3.4)
[2017-03-05] MEDS ORDERED: ALBUT/IPRATROP 3MG/0.5MG NEB 3 ML VIAL INH ONE (10:15)
[2017-03-05] MEDS ORDERED: VNTHFA/IN INH (10:31)
[2017-03-05 10:33] LABS: ALT/SGPT 20 U/L (12-78); BLOOD UREA NITROGEN 17 mg/dl (7-18); BUN/CREATININE RATIO 25.5 (10-20); CALCIUM 9.5 mg/dl (8.5-10.1); CARBON DIOXIDE 27 mmol/L (21-32); CHLORIDE 105 mmol/L (98-107); CREATININE 0.65 mg/dl (0.60-1.20); GLUCOSE 126 mg/dl (70-99); POTASSIUM 3.8 mmol/L (3.5-5.1); SODIUM 138 mmol/L (136-145)
[2017-03-05 10:36] LABS: ALKALINE PHOSPHATASE 60 U/L (45-117); AST/SGOT 16 U/L (15-37)
--- NOTE | 2017-03-05 10:38 | EMERGENCY ROOM VISIT NOTE ---
History Report prepared by Dara: Jessi East Under the Supervision of: Dr. Amelia Diaz M.D. First contact with patient: 09:59 Chief Complaint: RESPIRATORY PROBLEMS Stated Complaint: ASTHMA, CAN'T BREATHE History of Present Illness The patient is a 31 year old female who presents to the Emergency Room with complaints of worsening asthma symptoms that started a couple of days ago. The patient states that she is on Symbicort for her asthma, but states that she recently ran out of her medication. She states that she was trying to make it without the medication until her appointment with her circular knitter helper on Tuesday, but was unable to make it before her symptoms started worsening. She states that she took 7 duoneb treatments before coming to the ER. The patient is experiencing a cough. She denies being on control pills. The patient denies any fever. Source of History: patient Onset: a couple of days ago Position: other (global) Quality: other (asthma symptoms) Timing: worsening Associated Symptoms: + cough, No fevers Review of Systems See HPI for pertinent positives & negatives. A total of 10 systems reviewed and were otherwise negative. Past Medical & Surgical Medical Problems: (1) ADHD (2) Asthma Surgical Problems: (1) Status post bilateral breast implants Family History Cancer Diabetes mellitus Hypertension Social History Smoking Status: Current Every Day Smoker Alcohol Use: none Drug Use: none Marital Status: in relationship Housing Status: lives with significant other Occupation Status: unemployed Current/Historical Medications Scheduled Amphetamine-Dextroamphetamine 30MG (Adderall Xr 30MG), 30 MG PO BID Azithromycin (Zithromax Z-Otis), 1 PKT PO UD Budesonide/Formoterol Fumarate (Symbicort 160/4.5 Inhaler ), 2 PUFFS INH BID Prednisone (Prednisone), 0 PO UD Scheduled PRN Albuterol Hfa (Ventolin Hfa), 2 PUFFS INH Q4H PRN for SOB/Wheezing Ipratropium-Albuterol (Duoneb), 1 TREATMENT INH Q4H PRN for Wheezing Allergies Coded Allergies: Dust (Verified Allergy, Severe, BREATHING DIFFICULTIES, 01/18/17) POLLEN (Verified Allergy, Severe, BREATHING DIFFICULTIES, 01/18/17) Pollen Extract (Verified Allergy, Severe, BREATHING DIFFICULTIES, 01/18/17) Cat Dander (Verified Allergy, Intermediate, BREATHING DIFFICULTIES, ) CAT DANDER/SALIVA Dog Dander (Verified Allergy, Intermediate, BREATHING DIFFICULTIES, ) DOG DANDER/SALIVA Grass (Verified Allergy, Intermediate, BREATHING DIFFICULTIES, 01/18/17) Physical Exam Vital Signs Date Time Temp Pulse Resp B/P (MAP) Pulse Ox O2 Delivery O2 Flow Rate FiO2 03/05/17 13:30 126 20 126/78 90 Nasal Cannula 4.0 03/05/17 12:31 125 18 102/66 90 Nasal Cannula 3.0 Nebulizer 03/05/17 11:53 131 19 96 03/05/17 11:23 129 17 95 03/05/17 11:08 123 20 126/73 95 Nebulizer 8.0 03/05/17 11:07 126/73 03/05/17 10:53 116 20 97 03/05/17 10:45 123 24 92 Nasal Cannula 5.0 03/05/17 10:27 120 20 136/82 92 Nasal Cannula 6.0 03/05/17 10:27 136/82 03/05/17 10:23 116 21 85 03/05/17 10:02 134 03/05/17 09:59 129/88 03/05/17 09:55 84 Room Air 03/05/17 09:55 36.9 133 32 129/88 91 Nasal Cannula 6.0 03/05/17 09:55 84 Room Air Physical Exam Vital signs reviewed. General: Anxious 31-year-old female in some respiratory discomfort. Hypoxic HEENT: No scleral icterus, PERRLA, neck supple. Atraumatic. Cardiovascular: Tachycardic rate and rhythm, no extra sounds. Pulmonary: Increased work of breathing, on nasal cannula oxygen, inspiratory and expiratory wheezes, dry cough noted. Abdomen: Soft, nontender, nondistended, positive bowel sounds. Musculoskeletal: Atraumatic, no peripheral edema. Neurologic: Patient awake alert and oriented x 3 Skin: Warm, dry, no rash Medical Decision & Procedures ER Provider Diagnostic Interpretation: X-ray results as stated below per interpretation by me and the radiologist: SINGLE VIEW CHEST CLINICAL HISTORY: Asthma FINDINGS: An AP, portable, upright chest radiograph is compared to study dated 01/18/2017. The examination is degraded by portable technique and patient rotation. The cardiomediastinal silhouette is unremarkable. The lungs and pleural spaces are clear. No pneumothorax is seen. There is a healed right-sided rib fracture. IMPRESSION: No active disease in the chest. Electronically signed by: Fracisco Valadez M.D. 03/05/2017 11:01 AM Dictated Date/Time: 03/05/2017 11:00 AM Laboratory Results 03/05/17 10:00 Red Blood Count 4.63, Mean Corpuscular Volume 89.8, Mean Corpuscular Hemoglobin 31.5, Mean Corpuscular Hemoglobin Concent 35.1, Mean Platelet Volume 11.8, Neutrophils (%) (Auto) 61.8, Lymphocytes (%) (Auto) 26.1, Monocytes (%) (Auto) 4.8, Eosinophils (%) (Auto) 6.6, Basophils (%) (Auto) 0.5, Neutrophils # (Auto) 8.09, Lymphocytes # (Auto) 3.41, Monocytes # (Auto) 0.63, Eosinophils # (Auto) 0.86, Basophils # (Auto) 0.06 03/05/17 10:00 Test 03/05/17 10:00 White Blood Count 13.08 K/uL (4.8-10.8) Red Blood Count 4.63 M/uL (4.2-5.4) Hemoglobin 14.6 g/dL (12.0-16.0) Hematocrit 41.6 % (37-47) Mean Corpuscular Volume 89.8 fL (80-100) Mean Corpuscular Hemoglobin 31.5 pg (25-34) Mean Corpuscular Hemoglobin Concent 35.1 g/dl (32-36) Platelet Count 274 K/uL (130-400) Mean Platelet Volume 11.8 fL (7.4-10.4) Neutrophils (%) (Auto) 61.8 % Lymphocytes (%) (Auto) 26.1 % Monocytes (%) (Auto) 4.8 % Eosinophils (%) (Auto) 6.6 % Basophils (%) (Auto) 0.5 % Neutrophils # (Auto) 8.09 K/uL (1.4-6.5) Lymphocytes # (Auto) 3.41 K/uL (1.2-3.4) Monocytes # (Auto) 0.63 K/uL (0.11-0.59) Eosinophils # (Auto) 0.86 K/uL (0-0.5) Basophils # (Auto) 0.06 K/uL (0-0.2) RDW Standard Deviation 38.9 fL (36.4-46.3) RDW Coefficient of Variation 12.0 % (11.5-14.5) Immature Granulocyte % (Auto) 0.2 % Immature Granulocyte # (Auto) 0.03 K/uL (0.00-0.02) Prothrombin Time 10.5 SECONDS (9.0-12.0) Prothromb Time International Ratio 1.0 (0.9-1.1) Activated Partial Thromboplast Time 26.7 SECONDS (21.0-31.0) Partial Thromboplastin Ratio 1.0 Anion Gap 6.0 mmol/L (3-11) Estimated GFR () 138.1 Estimated GFR (Non- 119.1 BUN/Creatinine Ratio 25.5 (10-20) Calcium Level 9.5 mg/dl (8.5-10.1) Total Bilirubin 0.2 mg/dl (0.2-1) Direct Bilirubin < 0.1 mg/dl (0-0.2) Aspartate Amino Transf (AST/SGOT) 16 U/L (15-37) Alanine Aminotransferase (ALT/SGPT) 20 U/L (12-78) Alkaline Phosphatase 60 U/L (45-117) Total Protein 7.5 gm/dl (6.4-8.2) Albumin 3.5 gm/dl (3.4-5.0) Laboratory results per my review. Medications Administered Medications (Trade) Dose Ordered Sig/Shawn Route Start Time Stop Time Status Last Admin Dose Admin Albuterol/ Ipratropium (Duoneb) 3 ml NOW STAT INH 03/05/17 10:02 03/05/17 10:04 DC 03/05/17 10:05 3 ML Methylprednisolone Sodium Succinate (Solu-Medrol IV) 125 mg NOW STAT IV 03/05/17 10:02 03/05/17 10:04 DC 03/05/17 10:10 125 MG Magnesium Sulfate (Magnesium Sulfate) 2 gm NOW STAT IV 03/05/17 10:02 03/05/17 10:05 DC 03/05/17 10:11 2 GM Levalbuterol (Xopenex 1.25MG/ 3ML Neb) 5 mg NOW STAT INH 03/05/17 10:10 03/05/17 10:13 DC 03/05/17 10:45 5 MG Ipratropium [place] (Atrovent 0.02% 0.5MG/2.5ML Neb) 2 mg NOW STAT INH 03/05/17 10:10 03/05/17 10:13 DC 03/05/17 10:45 2 MG ECG Indication: SOB/dyspnea Rate (beats per minute): 129 Rhythm: sinus tachycardia Findings: no acute ischemic change, no ectopy ED Course 1000: Past medical records reviewed. The patient was evaluated in room A4B. A complete history and physical examination was performed. 1002: Magnesium Sulfate 2 gm IV, Solu-Medrol IV 125 m IV, Duoneb 3 ml INH. 1003: Duoneb 3 ml .ROUTE. 1010: Ipratropium [place] 2 mg INH, Levalbuterol 5 mg INH. 1015: Duoneb 12 ml INH. 1253: I reevaluated the patient and she is resting. I discussed the exam findings with her and I discussed the treatment plan. She verbalized complete understanding and agreement. She is going to be evaluated for further treatment. 1312: I discussed the patients case with Celestine Arredondo. He is going to evaluate the patient for further treatment. 1328: Per Dr. Barksdale, the patient is refusing to stay for further evaluation and treatment. 1329: I reevaluated the patient and she is going to think about staying for further treatment and evaluation. Medical Decision Differential diagnosis: Etiologies such as infections, reactive airway disease, pneumonia, pneumothorax , COPD, CHF, cardiac ischemia, pulmonary embolism, musculoskeletal, gastrointestinal, as well as others were entertained. This patient was evaluated and appeared to be in some respiratory discomfort. The patient had given herself multiple nebulizers prior to arrival. She has tachycardic and hypoxic on room air. She is placed on nasal cannula oxygen prior to my evaluation. Patient was given a DuoNeb treatment with a subsequent Xopenex/Atrovent hour-long nebulizer. Chest x-ray was obtained and is clear. Laboratory work is fairly unrevealing. The patient did require 2 g IV magnesium. She was given Solu-Medrol 125 mg IV. The patient was observed in the ER for several hours and continued to require nasal cannula oxygen. I did speak with the patient regarding same the hospital. She was hesitant but after discussion of her brittle asthma, she finally agreed. Dr. Barksdale was consulted and agreed to evaluate the patient for further management. Medication Reconcilliation Current Medication List: was personally reviewed by me Consults Time Called: 1253 Consulting Physician: Celestine Arredondo Returned Call: [phone] I discussed the patients case with Celestine Arredondo. He is going to evaluate the patient for further treatment. Impression Primary Impression: Asthma with acute exacerbation Additional Impression: Oxygen desaturation Critical Care I have personally spent greater than 35 minutes of critical care time in the direct management of this patient. This includes bedside care, interpretation of diagnostic studies, and testing, discussion with consultants, patient, and family members, and other required patient management activities. This 35 minutes is in excess of all separately billable procedures. Scribe Attestation The scribe's documentation has been prepared under my direction and personally reviewed by me in its entirety. I confirm that the note above accurately reflects all work, treatment, procedures, and medical decision making performed by me. Departure Information Dispostion Being Evaluated By Hospitalist Prescriptions Prednisone (Prednisone) 10 Mg Tab 0 PO UD, #20 TAB 4 pills x 2 days, 3 pills x 2 days, 2 pills x 2 days, 1 pill x 2 days. Prov: Jesus Barksdale M.D. 03/05/17 Azithromycin (ZITHROMAX Z-OTIS) 250 Mg Tab 1 PKT PO UD for 5 Days, #1 PKT Prov: Jesus Barksdale M.D. 03/05/17 Budesonide/Formoterol Fumarate (Symbicort 160/4.5 Inhaler ) Aero 2 PUFFS INH BID, #1 INHALER 12 Refills Prov: Jesus Barksdale M.D. 03/05/17 Referrals No Doctor, Assigned (PCP) Problem Qualifiers
[2017-03-05 10:45] VITALS: PULSE 123; O2SAT 92
--- NOTE | 2017-03-05 11:02 | DIAGNOSTIC IMAGING REPORT ---
SINGLE VIEW CHEST CLINICAL HISTORY: Asthma FINDINGS: An AP, portable, upright chest radiograph is compared to study dated 01/18/2017. The examination is degraded by portable technique and patient rotation. The cardiomediastinal silhouette is unremarkable. The lungs and pleural spaces are clear. No pneumothorax is seen. There is a healed right-sided rib fracture. IMPRESSION: No active disease in the chest. Electronically signed by: Fracisco Valadez M.D. 03/05/2017 11:01 AM Dictated Date/Time: 03/05/2017 11:00 AM
--- NOTE | 2017-03-05 13:58 | History and Physical ---
History & Physical Date & Time of Service: Mar 05, 2017 at 13:58 . Chief Complaint: wheezing, trouble breathing . Primary Care Physician: Annette Reyes DO . History of Present Illness Source: patient, clinic records, hospital records 31 YO female followed by Dr. Reyes for Family Medicine and Dr. Fulton for Pulmonary Medicine. History of asthma and other problems noted below. Severe exacerbation of asthma April 2015 requiring intubation, mechanical ventilation, transfer to [facility] [place]. Ran out of Symbicort a few days ago. Since then, has experienced progressive wheezing and dyspnea. She does not monitor peak flow rates at home. Notes cough productive of yellow sputum. No fever. No sinus drainage or pharyngitis. Tried nebs at home without significant benefit. Came to ED for evaluation. Persistent bronchospasm and hypoxia despite receiving IV methylprednisolone, Mg sulfate, nebs in ED. Referred for admission. Continues to smoke 1 PPD. . Past Medical/Surgical History Medical Problems: (1) ADHD Status: Chronic (2) Asthma Permanent Comment: required intubation / mech vent Apr 2015 Status: Chronic Surgical Problems: (1) Status post bilateral breast implants Status: Chronic . Family History FATHER Diabetes mellitus MOTHER Melanoma GRANDFATHER Diabetes mellitus GRANDMOTHER Diabetes mellitus AUNT Ovarian cancer AUNT Breast cancer Social History Smoking Status: Current Every Day Smoker (1 PPD) Alcohol Use: occasionally Drug Use: none Marital Status: in relationship Occupational Status: unemployed Multi-Drug Resistant Organisms History of MDRO: No Allergies Coded Allergies: Dust (Verified Allergy, Severe, BREATHING DIFFICULTIES, 01/18/17) POLLEN (Verified Allergy, Severe, BREATHING DIFFICULTIES, 01/18/17) Pollen Extract (Verified Allergy, Severe, BREATHING DIFFICULTIES, 01/18/17) Cat Dander (Verified Allergy, Intermediate, BREATHING DIFFICULTIES, ) CAT DANDER/SALIVA Dog Dander (Verified Allergy, Intermediate, BREATHING DIFFICULTIES, ) DOG DANDER/SALIVA Grass (Verified Allergy, Intermediate, BREATHING DIFFICULTIES, 01/18/17) Home Medications Scheduled Amphetamine-Dextroamphetamine 30MG (Adderall Xr 30MG), 30 MG PO BID Budesonide/Formoterol Fumarate (Symbicort 160/4.5 Inhaler ), 2 PUFFS INH BID Scheduled PRN Albuterol Hfa (Ventolin Hfa), 2 PUFFS INH Q4H PRN for SOB/Wheezing Ipratropium-Albuterol (Duoneb), 1 TREATMENT INH Q4H PRN for Wheezing Review of Systems Constitutional- no fever; no weight loss Eyes- no acute visual changes ENT- no sinus drainage; no pharyngitis Pulmonary- as noted above in HPI Cardiac- no chest pain GI- no nausea, no vomiting, no diarrhea, no melena, no hematochezia - no dysuria, no hematuria Musculoskeletal- no arthralgias, no myalgias Derm- no rashes, no new skin lesions, no changing skin lesions Hematologic- no unusual bruising, no unusual bleeding Lymphatics- no adenopathy Endocrine- no polyuria or polydipsia Neuro- mild headache . Physical Exam Vital Signs Date Time Temp Pulse Resp B/P (MAP) Pulse Ox O2 Delivery O2 Flow Rate FiO2 03/05/17 13:30 126 20 126/78 90 Nasal Cannula 4.0 03/05/17 12:31 125 18 102/66 90 Nasal Cannula 3.0 Nebulizer 03/05/17 11:53 131 19 96 03/05/17 11:23 129 17 95 03/05/17 11:08 123 20 126/73 95 Nebulizer 8.0 03/05/17 11:07 126/73 03/05/17 10:53 116 20 97 03/05/17 10:45 123 24 92 Nasal Cannula 5.0 03/05/17 10:27 120 20 136/82 92 Nasal Cannula 6.0 03/05/17 10:27 136/82 03/05/17 10:23 116 21 85 03/05/17 10:02 134 03/05/17 09:59 129/88 03/05/17 09:55 84 Room Air 03/05/17 09:55 36.9 133 32 129/88 91 Nasal Cannula 6.0 03/05/17 09:55 84 Room Air General Appearance: WD/WN, + moderate distress Head: normocephalic, atraumatic Eyes: normal inspection, PERRL, EOMI, sclerae normal (eyelids and conjunctivae normal) ENT: hearing grossly normal, pharynx normal Neck: supple, no adenopathy, thyroid normal, trachea midline Respiratory/Chest: + accessory muscle use, + wheezing (diffuse moderate wheezing with prolonged expiratory phase) Cardiovascular: regular rate, rhythm, no edema, no gallop, no JVD, no murmur, + tachycardia Abdomen/GI: normal bowel sounds, non tender, soft, no organomegaly Extremities/Musculoskelatal: no calf tenderness, no pedal edema 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 as 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 (PERRL, EOMI), no motor/sensory deficits, alert, normal mood/affect, oriented x 3 Skin: normal color, warm/dry, no rash Lymphatic: no adenopathy (cervical) Diagnostics Laboratory Results Results Past 24 Hours Test 03/05/17 10:00 Range/Units White Blood Count 13.08 4.8-10.8 K/uL Red Blood Count 4.63 4.2-5.4 M/uL Hemoglobin 14.6 12.0-16.0 g/dL Hematocrit 41.6 37-47 % Mean Corpuscular Volume 89.8 80-100 fL Mean Corpuscular Hemoglobin 31.5 25-34 pg Mean Corpuscular Hemoglobin Concent 35.1 32-36 g/dl Platelet Count 274 130-400 K/uL Mean Platelet Volume 11.8 7.4-10.4 fL Neutrophils (%) (Auto) 61.8 % Lymphocytes (%) (Auto) 26.1 % Monocytes (%) (Auto) 4.8 % Eosinophils (%) (Auto) 6.6 % Basophils (%) (Auto) 0.5 % Neutrophils # (Auto) 8.09 1.4-6.5 K/uL Lymphocytes # (Auto) 3.41 1.2-3.4 K/uL Monocytes # (Auto) 0.63 0.11-0.59 K/uL Eosinophils # (Auto) 0.86 0-0.5 K/uL Basophils # (Auto) 0.06 0-0.2 K/uL RDW Standard Deviation 38.9 36.4-46.3 fL RDW Coefficient of Variation 12.0 11.5-14.5 % Immature Granulocyte % (Auto) 0.2 % Immature Granulocyte # (Auto) 0.03 0.00-0.02 K/uL Sodium Level 138 136-145 mmol/L Potassium Level 3.8 3.5-5.1 mmol/L Chloride Level 105 98-107 mmol/L Carbon Dioxide Level 27 21-32 mmol/L Anion Gap 6.0 3-11 mmol/L Blood Urea Nitrogen 17 7-18 mg/dl Creatinine 0.65 0.60-1.20 mg/dl Estimated GFR () 138.1 Estimated GFR (Non- 119.1 BUN/Creatinine Ratio 25.5 10-20 Random Glucose 126 70-99 mg/dl Calcium Level 9.5 8.5-10.1 mg/dl Total Bilirubin 0.2 0.2-1 mg/dl Direct Bilirubin < 0.1 0-0.2 mg/dl Aspartate Amino Transf (AST/SGOT) 16 15-37 U/L Alanine Aminotransferase (ALT/SGPT) 20 12-78 U/L Alkaline Phosphatase 60 45-117 U/L Total Protein 7.5 6.4-8.2 gm/dl Albumin 3.5 3.4-5.0 gm/dl Diagnostic Radiology SINGLE VIEW CHEST CLINICAL HISTORY: Asthma FINDINGS: An AP, portable, upright chest radiograph is compared to study dated 01/18/2017. The examination is degraded by portable technique and patient rotation. The cardiomediastinal silhouette is unremarkable. The lungs and pleural spaces are clear. No pneumothorax is seen. There is a healed right-sided rib fracture. IMPRESSION: No active disease in the chest. Electronically signed by: Fracisco Valadez M.D. 03/05/2017 11:01 AM Dictated Date/Time: 03/05/2017 11:00 AM . EKG EKG performed at 11:[address] at 130 / minute, no acute changes. . Impression Assessment and Plan EXACERBATION OF ASTHMA History of severe asthma, requiring intubation and mechanical ventilation in 2014. Presents with several days of dyspnea, wheezing, cough. Still bronchospastic and requiring supplemental O2 despite received methylprednisolone, mag sulfate, nebs. No infiltrates on chest x-ray. Possible bronchitis. Patient initially reluctant to be hospitalized, but was encouraged to do so because of severity of present illness and history of intubation in the past. Treat bronchospasm with IV methylprednisolone and inhaled ipratropium / levalbuterol. Azithromycin for possible bronchitis. IV fluids to maintain hydration. Continuous pulse oximetry. Monitor peak flow rates. Consult Pulmonary Medicine. SMOKING Smokes 1 PPD. Does not want nicotine patch. Smoking cessation counseling. VTE PROPHYLAXIS Low-moderate risk for VTE. SQ enoxaparin. Ambulate. DISPOSITION Admit to Telemetry Unit. Expected discharge to home. Family Medicine follow-up with Dr. Reyes. Pulmonary Medicine follow-up with Dr. Fulton. . VTE Prophylaxis Given or contraindicated: Enoxaparin (Lovenox)SQ Additional Copies To Jesus Fulton M.D.
[2017-03-05] MEDS ORDERED: ACETAMINOPHEN 325 MG TAB PO PRN (14:00)
[2017-03-05 14:28] LABS: PROTHROMBIN TIME (PATIENT) 10.5 SECONDS (9.0-12.0)
[2017-03-05] MEDS ORDERED: LACTATED RINGER'S 1000ML 1,000 ML IV SCH (14:45)
[2017-03-05] MEDS ORDERED: LEVALBUTEROL 0.63MG/3 ML NEB INH PRN (14:45)
[2017-03-05] MEDS ORDERED: AZITHROMYCIN 250 MG TAB PO ONE (14:45)
[2017-03-05 14:55] VITALS: O2SAT 92
[2017-03-05 15:05] VITALS: BP 120/77; PULSE 127; TEMP 36.5; O2SAT 90
[2017-03-05] MEDS ORDERED: AZITTAB PO (15:38)
[2017-03-05] MEDS ORDERED: SYMIN160 INH (15:38)
[2017-03-05] MEDS ORDERED: PRED10TA PO (15:38)
--- NOTE | 2017-03-05 15:44 | Discharge Summary ---
Discharge Summary Date of Service Mar 05, 2017. Discharge Summary Admission Date: Mar 05, 2017 at 14:01 Discharge Date: Mar 05, 2017 Discharge Disposition: Home (AMA) Principal Diagnosis: exacerbation of asthma tracheobronchitis . Secondary Diagnoses/Problems: Chronic Medical Problems: (1) ADHD Status: Chronic (2) Asthma Permanent Comment: required intubation / mech vent Apr 2015 Status: Chronic Surgical Problems: (1) Status post bilateral breast implants Status: Chronic . Procedures: IV meds . Medication Reconciliation New Medications: Azithromycin (Zithromax Z-Oits) 250 Mg Tab 1 PKT PO UD for 5 Days, #1 PKT Prednisone (Prednisone) 10 Mg Tab 0 PO UD, #20 TAB 4 pills x 2 days, 3 pills x 2 days, 2 pills x 2 days, 1 pill x 2 days. Continued Medications: Albuterol Hfa (Ventolin Hfa) 200 Puffs/93710 Mcg Aers 2 PUFFS INH Q4H PRN for SOB/Wheezing, #1 INHALER Amphetamine-Dextroamphetamine 30MG (Adderall Xr 30MG) 1 Cap Cap 30 MG PO BID, CAP Budesonide/Formoterol Fumarate (Symbicort 160/4.5 Inhaler ) Aero 2 PUFFS INH BID, #1 INHALER 12 Refills (This prescription has been renewed) Ipratropium-Albuterol (Duoneb) 3 Ml Nebu 1 TREATMENT INH Q4H PRN for Wheezing Admission Information HPI (per Admitting provider): 31 YO female followed by Dr. Reyes for Family Medicine and Dr. Fulton for Pulmonary Medicine. History of asthma and other problems noted below. Severe exacerbation of asthma April 2015 requiring intubation, mechanical ventilation, [place] [facility] Ran out of Symbicort a few days ago. Since then, has experienced progressive wheezing and dyspnea. She does not monitor peak flow rates at home. Notes cough productive of yellow sputum. No fever. No sinus drainage or pharyngitis. Tried nebs at home without significant benefit. Came to ED for evaluation. Persistent bronchospasm and hypoxia despite receiving IV methylprednisolone, Mg sulfate, nebs in ED. Referred for admission. Continues to smoke 1 PPD. . Physical Exam (per Admitting): General Appearance: WD/WN, + moderate distress Head: normocephalic, atraumatic Eyes: normal inspection, PERRL, EOMI, sclerae normal (eyelids and conjunctivae normal) ENT: hearing grossly normal, pharynx normal Neck: supple, no adenopathy, thyroid normal, trachea midline Respiratory/Chest: + accessory muscle use, + wheezing (diffuse moderate wheezing with prolonged expiratory phase) Cardiovascular: regular rate, rhythm, no edema, no gallop, no JVD, no murmur , + tachycardia Abdomen/GI: normal bowel sounds, non tender, soft, no organomegaly Extremities/Musculoskelatal: no calf tenderness, no pedal edema Neurologic/Psych: cafe server II-XII nml as tested (PERRL, EOMI), no motor/sensory deficits, alert, normal mood/affect, oriented x 3 Skin: normal color, warm/dry, no rash Lymphatic: no adenopathy (cervical) Hospital Course 31 YO female with history of asthma, requiring intubation in past. Presented with several days of cough, wheezing, SOB. Initial O2 sat 84% on RA. No infiltrates on chest x-ray. Still tight after IV steroids, IV Mg sulfate, nebs. Admission recommended, patient reluctantly agreed. However, once she arrived on medical floor she decided that she would leave AMA. Wheezing improved and O2 sats 90% RA. Potential risks of premature discharge, including , were discussed and she understood. Given Rx's for Z-pack, prednisone taper, Symbicort. Has Pulmonary Medicine appt with Dr. Fulton in 2 days. Advised to seek medical attention promptly for worsening symptoms. . Discharge Instructions Discharge Instructions Date of Service Mar 05, 2017. Admission Reason for Admission: worsening asthma . Discharge Discharge Diagnosis / Problem: worsening asthma Discharge Goals Goal(s): Improve disease control Activity Recommendations Activity Limitations: resume your previous activity . Instructions / Follow-Up Instructions / Follow-Up APPOINTMENTS: PULMONARY MEDICINE Dr. Fulton Tuesday03/07/17 as scheduled[address] FAMILY MEDICINE Dr. Reyes INSTRUCTIONS: Please quit smoking. Dr. Fulton or Dr. Reyes can offer assistance. Seek medical attention if you have: * temperature above 101 * chest pain or trouble breathing * abdominal pain, nausea, vomiting * diarrhea, dark stools or bloody stools * any unanswered questions or concerns Call 911 if symptoms are severe. Call if you have any questions or problems. My cell # is [phone]. You can also reach a [facility] hospitalist on duty at [facility] 24 hours a day by calling [phone]. Please take good care of yourself. Jesus Barksdale . Current Hospital Diet Patient's current hospital diet: Regular Diet Discharge Diet Recommended Diet: Regular Diet Pending Studies Studies pending at discharge: no Medical Emergencies . Who to Call and When: Medical Emergencies: If at any time you feel your situation is an emergency, please call 911 immediately. . Non-Emergent Contact Non-Emergency issues call your: Primary Care Provider, Clinical Informatics Educator . . "Provider Documentation" section prepared by Jesus Barksdale. . VTE Core Measure Inpt VTE Proph given/why not?: Enoxaparin (Lovenox)SQ . Additional Copies To Annette Reyes,DO; Jesus Fulton M.D.
[2017-03-05] MEDS ORDERED: IPRATROPIUM BROMIDE NEB SOLN 0.02% 2.5 ML VIAL INH SCH (16:00)
[2017-03-05] MEDS ORDERED: LEVALBUTEROL 1.25MG/0.5ML NEB INH SCH (16:00)
--- NOTE | 2017-03-05 16:13 | Pulmonary Consultation ---
History General Date of Service: Mar 05, 2017. Stated Complaint: Asthma With Acute Exacerbation, Bronchitis HPI The patient is a 31 year old female who presents to [facility] with complaints of Asthma With Acute Exacerbation, Bronchitis. The patient's primary care provider is Annette Reyes DO. Patient left AGAINST MEDICAL ADVICE, prior to evaluation by pulmonary. Family History Breast cancer AUNT Diabetes mellitus FATHER GRANDFATHER GRANDMOTHER Melanoma MOTHER Ovarian cancer AUNT Social History Hx Tobacco Use In Past Year?: Yes Smoking Status: Current Every Day Smoker (1 PPD) Marital status: in relationship Occupational Status: unemployed History of MDRO History of MDRO: No Allergies Coded Allergies: Dust (Verified Allergy, Severe, BREATHING DIFFICULTIES, 01/18/17) POLLEN (Verified Allergy, Severe, BREATHING DIFFICULTIES, 01/18/17) Pollen Extract (Verified Allergy, Severe, BREATHING DIFFICULTIES, 01/18/17) Cat Dander (Verified Allergy, Intermediate, BREATHING DIFFICULTIES, ) CAT DANDER/SALIVA Dog Dander (Verified Allergy, Intermediate, BREATHING DIFFICULTIES, ) DOG DANDER/SALIVA Grass (Verified Allergy, Intermediate, BREATHING DIFFICULTIES, 01/18/17) Current Medications Reported Home Medications Medications Dose Route/Sig Max Daily Dose Days Date Category Dose Instructions Prednisone 10 Mg Tab 0 PO UD 03/05/17 Rx 4 pills x 2 days, 3 pills x 2 days, 2 pills x 2 days, 1 pill x 2 days. Zithromax Z-Otis (Azithromycin) 250 Mg Tab 1 Pkt PO UD 5 03/05/17 Rx Symbicort 160/4.5 Inhaler (Budesonide/Formoterol Fumarate) Aero 2 Puffs INH BID 03/05/17 Rx Ventolin Hfa (Albuterol) 200 Puffs/89006 Mcg Aers 2 Puffs INH Q4H PRN 03/05/17 Reported Duoneb (Ipratropium-Albuterol) 3 Ml Nebu 1 Treatment INH Q4H PRN 05/11/15 Reported Adderall Xr 30MG (Amphetamine-Dextroamphetamine 30MG) 1 Cap Cap 30 Mg PO BID 05/11/15 Reported Physical Physical Exam Vital Signs: Date Time Temp Pulse Resp B/P (MAP) Pulse Ox O2 Delivery O2 Flow Rate FiO2 03/05/17 15:05 36.5 127 26 120/77 (91) 90 Room Air 03/05/17 14:55 116 20 109/77 92 Nasal Cannula 4.0 03/05/17 13:30 126 20 126/78 90 Nasal Cannula 4.0 03/05/17 12:31 125 18 102/66 90 Nasal Cannula 3.0 Nebulizer 03/05/17 11:53 131 19 96 03/05/17 11:23 129 17 95 03/05/17 11:08 123 20 126/73 95 Nebulizer 8.0 03/05/17 11:07 126/73 03/05/17 10:53 116 20 97 03/05/17 10:45 123 24 92 Nasal Cannula 5.0 03/05/17 10:27 120 20 136/82 92 Nasal Cannula 6.0 03/05/17 10:27 136/82 03/05/17 10:23 116 21 85 03/05/17 10:02 134 03/05/17 09:59 129/88 03/05/17 09:55 84 Room Air 03/05/17 09:55 36.9 133 32 129/88 91 Nasal Cannula 6.0 03/05/17 09:55 84 Room Air Diagnostics Labs Results Past 24 Hours Test 03/05/17 10:00 Range/Units White Blood Count 13.08 4.8-10.8 K/uL Red Blood Count 4.63 4.2-5.4 M/uL Hemoglobin 14.6 12.0-16.0 g/dL Hematocrit 41.6 37-47 % Mean Corpuscular Volume 89.8 80-100 fL Mean Corpuscular Hemoglobin 31.5 25-34 pg Mean Corpuscular Hemoglobin Concent 35.1 32-36 g/dl Platelet Count 274 130-400 K/uL Mean Platelet Volume 11.8 7.4-10.4 fL Neutrophils (%) (Auto) 61.8 % Lymphocytes (%) (Auto) 26.1 % Monocytes (%) (Auto) 4.8 % Eosinophils (%) (Auto) 6.6 % Basophils (%) (Auto) 0.5 % Neutrophils # (Auto) 8.09 1.4-6.5 K/uL Lymphocytes # (Auto) 3.41 1.2-3.4 K/uL Monocytes # (Auto) 0.63 0.11-0.59 K/uL Eosinophils # (Auto) 0.86 0-0.5 K/uL Basophils # (Auto) 0.06 0-0.2 K/uL RDW Standard Deviation 38.9 36.4-46.3 fL RDW Coefficient of Variation 12.0 11.5-14.5 % Immature Granulocyte % (Auto) 0.2 % Immature Granulocyte # (Auto) 0.03 0.00-0.02 K/uL Prothrombin Time 10.5 9.0-12.0 SECONDS Prothromb Time International Ratio 1.0 0.9-1.1 Activated Partial Thromboplast Time 26.7 21.0-31.0 SECONDS Partial Thromboplastin Ratio 1.0 Sodium Level 138 136-145 mmol/L Potassium Level 3.8 3.5-5.1 mmol/L Chloride Level 105 98-107 mmol/L Carbon Dioxide Level 27 21-32 mmol/L Anion Gap 6.0 3-11 mmol/L Blood Urea Nitrogen 17 7-18 mg/dl Creatinine 0.65 0.60-1.20 mg/dl Estimated GFR () 138.1 Estimated GFR (Non- 119.1 BUN/Creatinine Ratio 25.5 10-20 Random Glucose 126 70-99 mg/dl Calcium Level 9.5 8.5-10.1 mg/dl Total Bilirubin 0.2 0.2-1 mg/dl Direct Bilirubin < 0.1 0-0.2 mg/dl Aspartate Amino Transf (AST/SGOT) 16 15-37 U/L Alanine Aminotransferase (ALT/SGPT) 20 12-78 U/L Alkaline Phosphatase 60 45-117 U/L Total Protein 7.5 6.4-8.2 gm/dl Albumin 3.5 3.4-5.0 gm/dl
[2017-03-05] MEDS ORDERED: METHYLPREDNISOLONE IV 40 MG in SYRINGE 0 ML IV SCH (18:00)
[2017-03-05] MEDS ORDERED: ENOXAPARIN 40 MG/0.4 ML SYR SC SCH (21:00)
[2017-03-05] MEDS ORDERED: BUDESONIDE/FORMOTEROL FUMARATE 160/4.5 60 PUFFS/INHALER INH SCH (21:00)
[2017-03-06] MEDS ORDERED: AZITHROMYCIN 250 MG TAB PO SCH (09:00)
== END 2017-03-05 15:50 | disposition left against medical advice (07) | DRG 203 ==
LOC: C.EDB 09:55 → C.MED 14:01 → ENRESERV 14:36
PROVIDERS: ADMIT Hospitalist; ATTEND Hospitalist
DX: J45.901 Unspecified asthma with (acute) exacerbation (principal); F90.9 Attention-deficit hyperactivity disorder, unspecified type; F17.200 Nicotine dependence, unspecified, uncomplicated; Z98.82 Breast implant status; Z80.9 Family history of malignant neoplasm, unspecified; Z83.3 Family history of diabetes mellitus; Z82.49 Family history of ischemic heart disease and other diseases of the circulatory system

== ENCOUNTER 2017-03-16 05:18 | Inpatient (IN) | payer OTHER ==
[2017-03-16] VITALS (9 sets, daily range): BP systolic 114–129; BP diastolic 68–79; PULSE 87–118; TEMP 36.8–36.9; O2SAT 96–97; Ht 154.9 cm; Wt 67.4 kg
[~2017-03-16] VITALS: Ht 154.9 cm; Wt 67.4 kg
[~2017-03-16 05:18] MED LIST changes: -ALBUAER2 INH; -AMOX875T PO; -CETI10TA84 PO; -FLNIN; -MULT-506 PO; -PRD10 PO; +PRED10TA PO; +VNTHFA/IN INH
[2017-03-16] MEDS ORDERED: EpINEphrine INJ 1MG/ML AMP 1 MG/ML AMP ONE (05:22)
[2017-03-16] MEDS ORDERED: ALBUT/IPRATROP 3MG/0.5MG NEB 3 ML VIAL ONE (05:26)
[2017-03-16] MEDS ORDERED: DiphenhydrAMINE HCL 50 MG/ML VIAL IV STA (05:33)
[2017-03-16] MEDS ORDERED: RANITIDINE HCL 50 MG/100 ML D5W IV STA (05:33)
[2017-03-16 05:45] LABS: HEMATOCRIT 47.6 % (37-47); MEAN CELL VOLUME 90.8 fL (80-100); MEAN CORPUSCULAR HEMOGLOBIN 31.9 pg (25-34); MEAN CORPUSCULAR HGB CONC 35.1 g/dl (32-36); MEAN PLATELET VOLUME 11.9 fL (7.4-10.4); PLATELET COUNT 296 K/uL (130-400); RED BLOOD COUNT 5.24 M/uL (4.2-5.4); WHITE BLOOD COUNT 16.63 K/uL (4.8-10.8)
[2017-03-16 06:02] LABS: ALT/SGPT 24 U/L (12-78); BLOOD UREA NITROGEN 20 mg/dl (7-18); BUN/CREATININE RATIO 15.8 (10-20); CALCIUM 9.2 mg/dl (8.5-10.1); CARBON DIOXIDE 19 mmol/L (21-32); CHLORIDE 103 mmol/L (98-107); CREATININE 1.28 mg/dl (0.60-1.20); GLUCOSE 298 mg/dl (70-99); POTASSIUM 4.2 mmol/L (3.5-5.1); SODIUM 135 mmol/L (136-145)
[2017-03-16 06:06] LABS: ALKALINE PHOSPHATASE 62 U/L (45-117); AST/SGOT 23 U/L (15-37)
[2017-03-16] MEDS ORDERED: FLUT1INH7 PO (06:07)
[2017-03-16] MEDS ORDERED: SODIUM CHLORIDE 0.9% 1000ML 1,000 ML IV STA (06:12)
[2017-03-16 06:37] LABS: PREG INTERNAL NEGATIVE QC NEG CLEAR BACKGROUND; PREG INTERNAL POSITIVE QC POS CONTROL LINE
--- NOTE | 2017-03-16 06:44 | DIAGNOSTIC IMAGING REPORT ---
CHEST ONE VIEW PORTABLE CLINICAL HISTORY: asthma SHORTNESS OF BREATH COMPARISON STUDY: 03/05/2017 FINDINGS: The cardiac and mediastinal contours are normal. There is no evidence of focal pulmonary consolidation. There is no evidence of failure. No pleural effusions are visualized.[ IMPRESSION: No active disease in the chest. Electronically signed by: Fabricio Sawyer M.D. 03/16/2017 6:42 AM Dictated Date/Time: 03/16/2017 6:42 AM
[2017-03-16 06:50] LABS: BASO % 0.1 %; BASO ABS # 0.02 K/uL (0-0.2); COMPLETE YES; IG% 0.8 %; LYMPH % 31.9 %; LYMPH ABS # 5.31 K/uL (1.2-3.4); MONO % 1.3 %; NEUT % 62.9 %
[2017-03-16 06:52] LABS: ACETAMINOPHEN < 2 ug/ml (10-30)
--- NOTE | 2017-03-16 07:57 | EMERGENCY ROOM VISIT NOTE ---
History Report prepared by Dara: Lorelei Ortega Under the Supervision of: Dr. Lauren Arnold D.O. First contact with patient: 05:19 Chief Complaint: RESPIRATORY PROBLEMS Stated Complaint: RESPIRATORY PROBLEMS History of Present Illness The patient is a 31 year old female who presents to the Emergency Room with complaints of an episode of respiratory problems starting prior to arrival. The patient states that she has been having difficulty with her asthma recently. She reports that she thinks the rash is from the heroin she injected 3.5 hours ago. She states that normally she snorts it. She notes that her family does not know that ahe is using again. She notes her boyfriend does know and didn't think this was from the Heroin so he didn't give her the Narcan. Per EMS, they got a call that she was having an asthma attack and then it was upgraded to cardiac arrest. They deny CPR being performed. They report that she told them this happened a year ago and she was intubated for it. They state that her boyfriend said she stood up out of bed and collapsed to the floor. EMS states that he told them that she has been using her rescue inhaler recently with no relief. Source of History: patient, EMS Onset: prior to arrival Position: other (global) Quality: other (global) Timing: other (episode) Associated Symptoms: + rash Review of Systems See HPI for pertinent positives & negatives. A total of 10 systems reviewed and were otherwise negative. Past Medical & Surgical Medical Problems: (1) Acute respiratory failure (2) ADHD (3) Asthma Surgical Problems: (1) Status post bilateral breast implants Family History Patient reports no known family medical history. Social History Smoking Status: Current Every Day Smoker Alcohol Use: none Drug Use: heroin Marital Status: in relationship Housing Status: lives with significant other Occupation Status: employed Current/Historical Medications Scheduled Amphetamine-Dextroamphetamine 30MG (Adderall Xr 30MG), 30 MG PO BID Budesonide/Formoterol Fumarate (Symbicort 160/4.5 Inhaler ), 2 PUFFS INH BID Fluticasone Furoate-Vilanterol (Breo Ellipta 200-25 Mcg/INH), 1 PUFF PO BID Scheduled PRN Albuterol Hfa (Ventolin Hfa), 2 PUFFS INH Q4H PRN for SOB/Wheezing Ipratropium-Albuterol (Duoneb), 1 TREATMENT INH Q4H PRN for Wheezing Allergies Coded Allergies: Dust (Verified Allergy, Severe, BREATHING DIFFICULTIES, 03/16/17) POLLEN (Verified Allergy, Severe, BREATHING DIFFICULTIES, 03/16/17) Pollen Extract (Verified Allergy, Severe, BREATHING DIFFICULTIES, 03/16/17 ) Cat Dander (Verified Allergy, Intermediate, BREATHING DIFFICULTIES, ) CAT DANDER/SALIVA Dog Dander (Verified Allergy, Intermediate, BREATHING DIFFICULTIES, ) DOG DANDER/SALIVA Grass (Verified Allergy, Intermediate, BREATHING DIFFICULTIES, 03/16/17) Physical Exam Vital Signs Date Time Temp Pulse Resp B/P (MAP) Pulse Ox O2 Delivery O2 Flow Rate FiO2 03/16/17 07:02 116 18 120/75 99 Nasal Cannula 3.0 03/16/17 06:11 132 16 98 Nasal Cannula 5.0 03/16/17 06:01 131/87 03/16/17 05:56 116 25 100 Non-Rebreather 15.0 03/16/17 05:51 116 19 98 Non-Rebreather 15.0 03/16/17 05:46 123/82 03/16/17 05:33 118 25 127/70 91 Non-Rebreather 15.0 03/16/17 05:26 128 03/16/17 05:18 36.9 135 36 127/70 84 Room Air 03/16/17 05:18 84 Room Air 03/16/17 05:18 84 Room Air Physical Exam General: Appears in mild respiratory distress. HEENT: Head - normocephalic and atraumatic Pupils are equal, round, and reactive to light. Extraocular eye muscles are intact, and sclera are anicteric. Edema to both of her upper eyelids. Nose - moist nasal mucosa without discharge. Mouth - moist buccal mucosa. Oropharynx is nonerythematous and there is no tonsillar exudate or edema noted. Neck: Supple; no JVD, nuchal rigidity, cervical lymphadenopathy. EJ in right neck. Heart: Tachycardic rate and regular rhythm. There is a normal S1 and S2 with no murmurs, clicks, or gallops appreciated. Lungs: Inspiratory and expiratory wheezing. No rales or rhonchi. Abdomen: Soft, completely nontender, nondistended, with good bowel sounds. There are no palpable pulsatile masses or hepatosplenomegaly. There is no guarding, rigidity, or rebound noted. Extremities: No evidence of cyanosis, clubbing, or edema. There are easily palpable peripheral pulses. Urticaria about both forearms in a linear fashion over the antecubital fossa, over the mid forearms and wrists. There are obvious track atkins with surrounding bruises on both ventral forearms. Skin: warm and dry with good turgor and no rashes. Medical Decision & Procedures ER Provider Diagnostic Interpretation: CHEST X-RAY: The results were interpreted by me. No pulmonary infiltrates or signs of aspiration. Laboratory Results 03/16/17 05:34 Red Blood Count 5.24, Mean Corpuscular Volume 90.8, Mean Corpuscular Hemoglobin 31.9, Mean Corpuscular Hemoglobin Concent 35.1, Mean Platelet Volume 11.9, Neutrophils (%) (Auto) 62.9, Lymphocytes (%) (Auto) 31.9, Monocytes (%) (Auto) 1.3, Eosinophils (%) (Auto) 3.0, Basophils (%) (Auto) 0.1, Neutrophils # (Auto) 10.44, Lymphocytes # (Auto) 5.31, Monocytes # (Auto) 0.22, Eosinophils # (Auto) 0.50, Basophils # (Auto) 0.02 03/16/17 05:34 Test 03/16/17 05:34 White Blood Count 16.63 K/uL (4.8-10.8) Red Blood Count 5.24 M/uL (4.2-5.4) Hemoglobin 16.7 g/dL (12.0-16.0) Hematocrit 47.6 % (37-47) Mean Corpuscular Volume 90.8 fL (80-100) Mean Corpuscular Hemoglobin 31.9 pg (25-34) Mean Corpuscular Hemoglobin Concent 35.1 g/dl (32-36) Platelet Count 296 K/uL (130-400) Mean Platelet Volume 11.9 fL (7.4-10.4) Neutrophils (%) (Auto) 62.9 % Lymphocytes (%) (Auto) 31.9 % Monocytes (%) (Auto) 1.3 % Eosinophils (%) (Auto) 3.0 % Basophils (%) (Auto) 0.1 % Neutrophils # (Auto) 10.44 K/uL (1.4-6.5) Lymphocytes # (Auto) 5.31 K/uL (1.2-3.4) Monocytes # (Auto) 0.22 K/uL (0.11-0.59) Eosinophils # (Auto) 0.50 K/uL (0-0.5) Basophils # (Auto) 0.02 K/uL (0-0.2) RDW Standard Deviation 40.9 fL (36.4-46.3) RDW Coefficient of Variation 12.3 % (11.5-14.5) Immature Granulocyte % (Auto) 0.8 % Immature Granulocyte # (Auto) 0.14 K/uL (0.00-0.02) Anion Gap 13.0 mmol/L (3-11) Est Creatinine Clear Calc Drug Dose 56.9 ml/min Estimated GFR () 65.0 Estimated GFR (Non- 56.0 BUN/Creatinine Ratio 15.8 (10-20) Calcium Level 9.2 mg/dl (8.5-10.1) Total Bilirubin 0.3 mg/dl (0.2-1) Direct Bilirubin < 0.1 mg/dl (0-0.2) Aspartate Amino Transf (AST/SGOT) 23 U/L (15-37) Alanine Aminotransferase (ALT/SGPT) 24 U/L (12-78) Alkaline Phosphatase 62 U/L (45-117) Total Protein 8.0 gm/dl (6.4-8.2) Albumin 3.7 gm/dl (3.4-5.0) Human Chorionic Gonadotropin, Qual NEG (NEG) Salicylates Level 3.3 mg/dl (2.8-20) Acetaminophen Level < 2 ug/ml (10-30) Laboratory results per my review. Medications Administered Medications (Trade) Dose Ordered Sig/Shawn Route Start Time Stop Time Status Last Admin Dose Admin Epinephrine HCl (EpINEphrine INJ 1MG/ML AMP/VIAL) 1 mg STK-MED ONCE .ROUTE 03/16/17 05:22 03/16/17 05:23 DC 03/16/17 05:22 0.3 MG Albuterol/ Ipratropium (Duoneb) 3 ml STK-MED ONCE .ROUTE 03/16/17 05:26 03/16/17 05:27 DC 03/16/17 05:26 3 ML Diphenhydramine HCl (Benadryl Inj) 50 mg NOW STAT IV 03/16/17 05:33 03/16/17 05:35 DC 03/16/17 05:43 50 MG Ranitidine HCl (zANTac IV) 50 mg NOW STAT IV 03/16/17 05:33 03/16/17 05:35 DC 03/16/17 05:44 50 MG Sodium Chloride 1,000 ml @ 250 mls/hr Q4H STAT IV 03/16/17 06:12 03/16/17 10:11 03/16/17 06:28 250 MLS/HR Procedure 0522: Ordered Epinephrine HCl 0.3 mg IM 0526: Ordered Duoneb 0533: Ordered Ranitidine HCl 50 mg IV, Benadryl Inj 50 mg IV. 0612: Ordered NSS 1000 ml @ 250 mls/hr IV. ECG Indication: SOB/dyspnea Rate (beats per minute): 118 Rhythm: sinus tachycardia Findings: no acute ischemic change, no ectopy ED Course 0519: Past medical records reviewed. The patient was evaluated in room B1. A complete history and physical exam was performed. A portable chest x-ray and twelve-lead EKG were obtained. 0522: Ordered Epinephrine HCl 1 mg IM 0526: Ordered Duoneb 3 ml. 0533: Ordered Ranitidine HCl 50 mg IV, Benadryl Inj 50 mg IV. The patient was switched from a nonrebreather to a nasal cannula 0612: Ordered NSS 1000 ml @ 250 mls/hr IV. 0613: I reevaluated the patient and she is doing well. 0653: Discussed the patient's case with Dr. Land. The patient will be evaluated for further management. Medical Decision This is a 31-year-old female patient who suffered a respiratory arrest at home. Differential diagnoses include respiratory failure, asthma exacerbation, allergic reaction, anaphylaxis, opioid overdose. LABS: White count 16.6 Hemoglobin 16.7 Hematocrit 47.6 Sodium 135 BUN 20 Creatine 1.2 Glucose 298 Normal LFTs there seems to be multiple issues for this patient. The patient had obvious low respiratory rate and significant hypoxia. This is most likely secondary to opioid overdose and severe exacerbation of asthma. It also appeared that the patient was having an acute allergic reaction. This could quite possibly secondary to tourniquet use associated with her heroin use as the areas of hives /urticaria or in a linear fashion over both arms. Medication Reconcilliation Current Medication List: was personally reviewed by me Blood Pressure Screening Patient's blood pressure: Normal blood pressure Blood pressure disposition: Did not require urgent referral Consults Time Called: 0615 Consulting Physician: Dr. Land Returned Call: [phone] Discussed the patient's case with Dr. Land. The patient will be evaluated for further management. Impression Primary Impression: Opioid overdose Additional Impressions: Exacerbation of asthma Allergic reaction Critical Care I have personally spent greater than 45 minutes of critical care time in the direct management of this patient. This includes bedside care, interpretation of diagnostic studies, and testing, discussion with consultants, patient, and family members, and other required patient management activities. This 45 minutes is in excess of all separately billable procedures. Scribe Attestation The scribe's documentation has been prepared under my direction and personally reviewed by me in its entirety. I confirm that the note above accurately reflects all work, treatment, procedures, and medical decision making performed by me. Departure Information Dispostion Being Evaluated By Hospitalist Referrals Annette Reyes DO (PCP) Patient Instructions My [facility] Problem Qualifiers Primary Impression: Opioid overdose Encounter type: initial encounter Injury intent: accidental or unintentional Qualified Codes: T40.2X1A - Poisoning by other opioids, accidental (unintentional), initial encounter Additional Impressions: Exacerbation of asthma Asthma severity: moderate Asthma persistence: unspecified Qualified Codes: J45.901 - Unspecified asthma with (acute) exacerbation Allergic reaction Encounter type: initial encounter Qualified Codes: T78.40XA - Allergy, unspecified, initial encounter
--- NOTE | 2017-03-16 08:04 | History and Physical ---
History & Physical Date & Time of Service: Mar 16, 2017 at 08:04 Chief Complaint: Respiratory Problems Primary Care Physician: No Doctor, Assigned History of Present Illness 31 YO female followed by Dr. Reyes for Family Medicine and Dr. Fulton for Pulmonary Medicine. History of asthma and other problems noted below. Severe exacerbation of asthma April 2015 requiring intubation, mechanical ventilation, transfer to [facility] [place]. Admitted for exacerbation of asthma 03/05/17. Discharged same day AMA. Saw Dr. Fulton for pulmonary follow-up. Started on Breo Ellipta. Asthma symptoms at baseline this seek- nonproductive cough, wheezing, SOB. Still smoking, but cut down. Injected IV heroin during the night. Boyfriend noted that she was unresponsive and having trouble breathing. Apparently patient has naloxone available for emergent use, but it was not administered. ED provider under impression that boyfriend may have administered mouth-mouth resuscitation, but patient is unaware and boyfriend not present. EMS summoned. Patient was cyanotic with agonal respirations upon their arrival. O2 sats were in the 60's. Received assisted ventilations with bag valve mask. Methylprednisolone and nebulizer administered in the field. By the time she arrived to the ED, respiratory status and neuro status improving. O2 sats 84% on RA. She was noted to have periorbital edema and diffuse urticaria. Received IM epinephrine, IV ranitidine, IV diphenhydramine in ED with improvement of urticaria. Received ipratropium / albuterol neb with improvement of wheezing / dyspnea. Patient indicates that she did not have any urticaria before injecting the heroin. She was using a tourniquet, but does not know if it contained latex. Has known allergies to cat dander, dog dander, dust, grass, pollen, but no apparent exposure. No know allergy to latex. . Past Medical/Surgical History Medical Problems: (1) ADHD Status: Chronic (2) Asthma Permanent Comment: required intubation / mech vent Apr 2015 Status: Chronic Surgical Problems: (1) Status post bilateral breast implants Status: Chronic . Family History FATHER Diabetes mellitus MOTHER Melanoma GRANDFATHER Diabetes mellitus GRANDMOTHER Diabetes mellitus AUNT Ovarian cancer AUNT Breast cancer Social History Smoking Status: Current Every Day Smoker Alcohol Use: socially Drug Use: heroin Marital Status: in relationship Occupational Status: employed Multi-Drug Resistant Organisms History of MDRO: No Allergies Coded Allergies: Dust (Verified Allergy, Severe, BREATHING DIFFICULTIES, 03/16/17) POLLEN (Verified Allergy, Severe, BREATHING DIFFICULTIES, 03/16/17) Pollen Extract (Verified Allergy, Severe, BREATHING DIFFICULTIES, 03/16/17 ) Cat Dander (Verified Allergy, Intermediate, BREATHING DIFFICULTIES, ) CAT DANDER/SALIVA Dog Dander (Verified Allergy, Intermediate, BREATHING DIFFICULTIES, ) DOG DANDER/SALIVA Grass (Verified Allergy, Intermediate, BREATHING DIFFICULTIES, 03/16/17) Home Medications Scheduled Amphetamine-Dextroamphetamine 30MG (Adderall Xr 30MG), 30 MG PO BID Fluticasone Furoate-Vilanterol (Breo Ellipta 200-25 Mcg/INH), 1 PUFF PO BID Scheduled PRN Albuterol Hfa (Ventolin Hfa), 2 PUFFS INH Q4H PRN for SOB/Wheezing Ipratropium-Albuterol (Duoneb), 1 TREATMENT INH Q4H PRN for Wheezing Review of Systems Constitutional: No fever, No weight loss Eyes: + redness, + problem reported (swelling) ENT: + sore throat, No nasal symptoms Respiratory: + cough, + shortness of breath Cardiovascular: No chest pain Abdomen: No nausea, No vomiting, No diarrhea, No GI bleeding Musculoskeletal: No joint pain, No muscle pain Genitourinary - Female: No dysuria Psychiatric: + problem reported (ADHS) Endocrine: No excessive thirst Hematologic / Lymphatic: No abnormal bleeding/bruising Integumentary: + rash Allergic / Immunologic: + environmental allergies, + seasonal allergies Physical Exam Vital Signs Date Time Temp Pulse Resp B/P (MAP) Pulse Ox O2 Delivery O2 Flow Rate FiO2 03/16/17 07:02 116 18 120/75 99 Nasal Cannula 3.0 03/16/17 06:11 132 16 98 Nasal Cannula 5.0 03/16/17 06:01 131/87 03/16/17 05:56 116 25 100 Non-Rebreather 15.0 03/16/17 05:51 116 19 98 Non-Rebreather 15.0 03/16/17 05:46 123/82 03/16/17 05:33 118 25 127/70 91 Non-Rebreather 15.0 03/16/17 05:26 128 03/16/17 05:18 36.9 135 36 127/70 84 Room Air 03/16/17 05:18 84 Room Air 03/16/17 05:18 84 Room Air General Appearance: WD/WN, no apparent distress Head: normocephalic, atraumatic Eyes: PERRL, EOMI, sclerae normal ENT: normal ENT inspection, hearing grossly normal, pharynx normal Neck: supple, no adenopathy, thyroid normal, no JVD, + pertinent finding ( right external jugular IV site bandaged) Respiratory/Chest: + pertinent finding (diffuse moderate wheezing, clear to percussion) Cardiovascular: regular rate, rhythm, + tachycardia Abdomen/GI: normal bowel sounds, non tender, soft Extremities/Musculoskelatal: no calf tenderness, no pedal edema 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/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 as tested (PERRL, EOMI, no facial palsy, no dysarthria), normal reflexes (patellar 2/2 bilat), oriented x 3 Skin: warm/dry, + pertinent finding (resolving urticaria upper and lower extremities; needle atkins and ecchymoses LUE) Lymphatic: no adenopathy (cervical) Diagnostics Laboratory Results Results Past 24 Hours Test 03/16/17 05:34 Range/Units White Blood Count 16.63 4.8-10.8 K/uL Red Blood Count 5.24 4.2-5.4 M/uL Hemoglobin 16.7 12.0-16.0 g/dL Hematocrit 47.6 37-47 % Mean Corpuscular Volume 90.8 80-100 fL Mean Corpuscular Hemoglobin 31.9 25-34 pg Mean Corpuscular Hemoglobin Concent 35.1 32-36 g/dl Platelet Count 296 130-400 K/uL Mean Platelet Volume 11.9 7.4-10.4 fL Neutrophils (%) (Auto) 62.9 % Lymphocytes (%) (Auto) 31.9 % Monocytes (%) (Auto) 1.3 % Eosinophils (%) (Auto) 3.0 % Basophils (%) (Auto) 0.1 % Neutrophils # (Auto) 10.44 1.4-6.5 K/uL Lymphocytes # (Auto) 5.31 1.2-3.4 K/uL Monocytes # (Auto) 0.22 0.11-0.59 K/uL Eosinophils # (Auto) 0.50 0-0.5 K/uL Basophils # (Auto) 0.02 0-0.2 K/uL RDW Standard Deviation 40.9 36.4-46.3 fL RDW Coefficient of Variation 12.3 11.5-14.5 % Immature Granulocyte % (Auto) 0.8 % Immature Granulocyte # (Auto) 0.14 0.00-0.02 K/uL Sodium Level 135 136-145 mmol/L Potassium Level 4.2 3.5-5.1 mmol/L Chloride Level 103 98-107 mmol/L Carbon Dioxide Level 19 21-32 mmol/L Anion Gap 13.0 3-11 mmol/L Blood Urea Nitrogen 20 7-18 mg/dl Creatinine 1.28 0.60-1.20 mg/dl Est Creatinine Clear Calc Drug Dose 56.9 ml/min Estimated GFR () 65.0 Estimated GFR (Non- 56.0 BUN/Creatinine Ratio 15.8 10-20 Random Glucose 298 70-99 mg/dl Calcium Level 9.2 8.5-10.1 mg/dl Total Bilirubin 0.3 0.2-1 mg/dl Direct Bilirubin < 0.1 0-0.2 mg/dl Aspartate Amino Transf (AST/SGOT) 23 15-37 U/L Alanine Aminotransferase (ALT/SGPT) 24 12-78 U/L Alkaline Phosphatase 62 45-117 U/L Total Protein 8.0 6.4-8.2 gm/dl Albumin 3.7 3.4-5.0 gm/dl Human Chorionic Gonadotropin, Qual NEG NEG Salicylates Level 3.3 2.8-20 mg/dl Acetaminophen Level < 2 10-30 ug/ml Diagnostic Radiology Chest x-ray reviewed by the undersigned and interpreted formally by Radiology: no infiltrates, effusions, CHF, pneumothorax . EKG EKG performed at 05:[address] at 120 / minute, baseline artifact, no acute ST or T-wave abnormalities. . Impression Assessment and Plan RESPIRATORY FAILURE Acute hypoxic respiratory failure with near respiratory arrest. Cyanotic with agonal respirations when EMS arrived; O2 sats were in the 60's. Underlying asthma. Unclear what precipitated event- respiratory depression from heroin or allergic reaction both may have been contributing. No vomiting or apparent aspiration. No infiltrates on chest x-ray. Titrate supplemental O2. Management of specific problems as noted below. EXACERBATION ASTHMA Associated with extensive urticaria after injecting IV heroin. No apparent pneumonia or bronchitis. Very bronchospastic when EMS arrived. Better after nebs, methylprednisolone, epinephrine. No apparent indication for antibiotics at this time. IV steroids with taper as tolerated. Levalbuterol / ipratropium nebs. Follow-up with Dr. Fulton for Pulmonary Medicine. URTICARIA Severe urticaria upon presentation to ED. Multiple known allergies, but no apparent exposure to those triggers. Apparently related to heroin injection. Improved after receiving IV methylprednisolone, IM epi, IV ranitidine, IV diphenhydramine. Continue IV methylprednisolone, H1 + H2 blockers. Follow-up with Dr. Fulton for allergies. HEROIN USE Patient is interested in Suboxone program. VTE PROPHYLAXIS Low-moderate risk. SQ heparin. Ambulate. DISPOSITION Admit to Telemetry Unit. Expected discharge to home. Family Medicine follow-up with Dr. Reyes. Pulmonary Medicine follow-up with Dr. Fulton. . VTE Prophylaxis VTE Risk Assessment Done? Y/N: Yes Risk Level: Moderate Given or contraindicated: Enoxaparin (Lovenox)SQ Additional Copies To Annette Reyes,; Jesus Fulton M.D.
[2017-03-16] MEDS ORDERED: SODIUM CHLORIDE 0.9% 1000ML 1,000 ML IV SCH (08:15)
[2017-03-16] MEDS ORDERED: DiphenhydrAMINE INJ 50 MG in SYRINGE 0 ML IV PRN (08:15)
[2017-03-16] MEDS ORDERED: ONDANSETRON INJ 2 MG/ML 2 ML VIAL IV PRN (08:15)
[2017-03-16] MEDS ORDERED: ACETAMINOPHEN 325 MG TAB PO PRN (08:15)
[2017-03-16] MEDS ORDERED: LEVALBUTEROL 0.63MG/3 ML NEB INH PRN (08:15)
[2017-03-16] MEDS ORDERED: LORAZEPAM 1 MG TAB PO PRN (08:30)
[2017-03-16] MEDS ORDERED: ADDERAL PO SCH (09:00)
[2017-03-16] MEDS ORDERED: LORATADINE 10 MG TAB PO ONE (10:00)
[2017-03-16] MEDS: LORATADINE 10 MG TAB PO SCH (10:18)
[2017-03-16] MEDS: NICOTINE 7 MG/24 HR TDSY TD SCH (10:18)
[2017-03-16] MEDS: LEVALBUTEROL 1.25MG/0.5ML NEB INH SCH ×3 (11:03→19:40)
[2017-03-16] MEDS: IPRATROPIUM BROMIDE NEB SOLN 0.02% 2.5 ML VIAL INH SCH ×3 (11:03→19:40)
[2017-03-16] MEDS: METHYLPREDNISOLONE IV 40 MG in SYRINGE 0 ML IV SCH ×2 (14:08→20:34)
[2017-03-16] MEDS ORDERED: NALOXONE HCL 0.4 MG/1 ML VIAL/CARP IV PRN (14:15)
[2017-03-16] MEDS: RANITIDINE IV 50 MG in DEXTROSE 5% 100ML 100 ML IV SCH ×2 (14:23→21:46)
[2017-03-16] MEDS ORDERED: DIPHENOXYLATE/ATROPINE 2.5/0.025MG TAB PO PRN (15:45)
[2017-03-16] MEDS ORDERED: CLONIDINE HCL 0.1 MG TAB PO PRN (15:45)
[2017-03-16] MEDS: CLONIDINE HCL 0.1 MG TAB PO SCH ×2 (16:51→20:33)
[2017-03-16] MEDS: DEXTROAMPHETAMINE PO SCH (20:13)
[2017-03-16] MEDS: AMPHETAMINE PO SCH (20:13)
[2017-03-16] MEDS ORDERED: ENOXAPARIN 40 MG/0.4 ML SYR SC SCH (21:00)
[2017-03-16] MEDS ORDERED: RANITIDINE HCL 150 MG TAB PO SCH (21:00)
[2017-03-17 04:34] VITALS: BP 104/65; PULSE 87; TEMP 37.2; O2SAT 94
[2017-03-17] MEDS: METHYLPREDNISOLONE IV 40 MG in SYRINGE 0 ML IV SCH (05:58)
[2017-03-17] MEDS: RANITIDINE IV 50 MG in DEXTROSE 5% 100ML 100 ML IV SCH (05:58)
[2017-03-17] MEDS: LEVALBUTEROL 1.25MG/0.5ML NEB INH SCH ×2 (07:07→10:55)
[2017-03-17] MEDS: IPRATROPIUM BROMIDE NEB SOLN 0.02% 2.5 ML VIAL INH SCH ×2 (07:07→10:55)
[2017-03-17 07:10] VITALS: PULSE 89; O2SAT 96
[2017-03-17 07:31] VITALS: BP 112/70; PULSE 92; TEMP 36.7; O2SAT 96
[2017-03-17] MEDS: AMPHETAMINE PO SCH (09:00)
[2017-03-17] MEDS: DEXTROAMPHETAMINE PO SCH (09:00)
[2017-03-17 10:10] VITALS: BP 146/81; PULSE 84
[2017-03-17] MEDS: LORATADINE 10 MG TAB PO SCH (10:12)
[2017-03-17] MEDS: NICOTINE 7 MG/24 HR TDSY TD SCH (10:12)
[2017-03-17] MEDS: CLONIDINE HCL 0.1 MG TAB PO SCH (10:12)
--- NOTE | 2017-03-17 10:35 | Progress Note ---
Medicine Progress Note Date & Time of Visit: Mar 17, 2017 at 10:35. Subjective Patient requesting discharge. Pulmonary status stable. No cough, significant wheezing, dyspnea. No chest pain. Urticaria resolved. . Objective Last 8 Hrs Date Time Temp Pulse Resp B/P (MAP) Pulse Ox O2 Delivery O2 Flow Rate FiO2 03/17/17 10:10 84 146/81 (102) 03/17/17 08:00 Room Air 03/17/17 07:31 36.7 92 18 112/70 (84) 96 Room Air 03/17/17 07:10 89 12 96 Room Air 03/17/17 04:34 37.2 87 16 104/65 (78) 94 Room Air 03/17/17 04:00 Room Air Physical Exam: General- no distress Lungs- diffuse mild wheezing Heart- RRR Abdomen- + BS, soft, nontender Extremities- no pretibial edema or calf tenderness Neuro- alert, oriented . Assessment & Plan RESPIRATORY FAILURE Presented with acute hypoxic respiratory failure with near respiratory arrest. Cyanotic with agonal respirations when EMS arrived; O2 sats were in the 60's. Underlying asthma. Unclear what precipitated event- respiratory depression from heroin or allergic reaction both may have been contributing. No vomiting or apparent aspiration. No infiltrates on chest x-ray. Management of specific problems as noted below. O2 sats 96% on RA by DC. EXACERBATION ASTHMA Associated with extensive urticaria after injecting IV heroin. No apparent pneumonia or bronchitis. Very bronchospastic when EMS arrived. Better after nebs, methylprednisolone, epinephrine. No apparent indication for antibiotics. Received IV steroids and levalbuterol / ipratropium nebs. Discharge on usual nebs + Medrol Dose Pack. Smoking cessation discussed. Follow-up with Dr. Fulton for Pulmonary Medicine. URTICARIA Severe urticaria upon presentation to ED. Multiple known allergies, but no apparent exposure to those triggers. Apparently related to heroin injection - ? other ingredients. Improved after receiving IV methylprednisolone, IM epi, IV ranitidine, IV diphenhydramine. Received IV methylprednisolone, H1 + H2 blockers. Discharge on Medrol Dose Pack, Zyrtec, Benadryl PRN. Given Rx for EpiPen for life-threatening allergic reaction. Follow-up with Dr. Fulton. HEROIN USE Intermittent heroin use. Previous rehab in [place]. Relapsed recently. Patient is interested rehab again, but not locally and does not wish further assistance from this facility. She will make her own arrangements. VTE PROPHYLAXIS Low-moderate risk. SQ heparin. Ambulating. DISPOSITION Discharge to home. Family Medicine follow-up with Dr. Reyes. Pulmonary Medicine follow-up with Dr. Fulton. . Current Inpatient Medications: Current Inpatient Medications Medications (Trade) Dose Ordered Sig/Shawn Route Start Time Stop Time Status Last Admin Dose Admin Enoxaparin Sodium (Lovenox Inj) 40 mg HS SC 03/16/17 21:00 04/15/17 20:59 03/16/17 20:35 40 MG Acetaminophen (Tylenol Tab) 650 mg Q4H PRN PO 03/16/17 08:15 04/15/17 08:14 Ondansetron HCl (Zofran Inj) 4 mg Q6H PRN IV 03/16/17 08:15 04/15/17 08:14 Methylprednisolone Sodium Succinate 40 mg/Syringe 0.64 ml @ 1.5 mls/min Q8H IV 03/16/17 14:00 04/15/17 13:59 03/17/17 05:58 1.5 MLS/MIN Ranitidine HCl 50 mg/Dextrose 102 ml @ 200 mls/hr Q8H IV 03/16/17 14:00 04/15/17 13:59 03/17/17 05:58 200 MLS/HR Loratadine (Claritin Tab) 10 mg QAM PO 03/16/17 09:00 04/15/17 08:59 03/17/17 10:12 10 MG Diphenhydramine HCl 50 mg/Syringe 1 ml @ 1 mls/min Q6H PRN IV 03/16/17 08:15 04/15/17 08:14 Diphenhydramine HCl (Benadryl Cap) 50 mg Q6H PRN PO 03/16/17 08:15 04/15/17 08:14 Miscellaneous Information (Order Awaiting Action) 1 ea QS N/A 03/16/17 16:00 04/15/17 15:59 Ipratropium [place] (Atrovent 0.02% 0.5MG/2.5ML Neb) 0.5 mg QIDR INH 03/16/17 12:00 04/15/17 11:59 03/17/17 07:07 0.5 MG Levalbuterol (Xopenex 1.25MG/ 0.5ML Neb) 1.25 mg QIDR INH 03/16/17 12:00 04/15/17 11:59 03/17/17 07:07 1.25 MG Levalbuterol (Xopenex 0.63 Mg/ 3 Ml Neb) 0.63 mg Q2H PRN INH 03/16/17 08:15 04/15/17 08:14 Nicotine (Nicoderm Cq 7 Mg Patch) 1 patch QAM TD 03/16/17 09:00 04/15/17 08:59 03/17/17 10:12 1 PATCH Miscellaneous (Remove Nicoderm Patch) 1 ea HS N/A 03/16/17 21:00 04/15/17 20:59 03/16/17 20:33 1 EA Lorazepam (Ativan Tab) 1 mg Q4H PRN PO 03/16/17 08:30 04/15/17 08:29 Miscellaneous Information (Order Awaiting Action) 1 ea BID PO 03/16/17 21:00 04/15/17 20:59 Naloxone HCl (Narcan Inj) 0.4 mg Q1H PRN IV 03/16/17 14:15 04/15/17 14:14 Clonidine HCl (Catapres Tab) 0.1 mg Q4@0800,1200,1600,2000 PO 03/16/17 16:00 04/15/17 15:59 03/17/17 10:12 0.1 MG Clonidine HCl (Catapres Tab) 0.1 mg Q2H PRN PO 03/16/17 15:45 04/15/17 15:44 Diphenoxylate HCl/ Atropine (Lomotil Tab) 1 tab Q4H PRN PO 03/16/17 15:45 04/15/17 15:44
[2017-03-17] MEDS ORDERED: CETI10TA84 PO (10:36)
[2017-03-17] MEDS ORDERED: METH4PAK PO (10:47)
[2017-03-17] MEDS ORDERED: DIPH1TAB PO (10:47)
[2017-03-17] MEDS ORDERED: EPP3/2 IM (10:47)
--- NOTE | 2017-03-17 10:55 | Discharge Instructions ---
Discharge Instructions Date of Service Mar 17, 2017. Admission Reason for Admission: asthma attack, allergic reaction . Discharge Discharge Diagnosis / Problem: asthma attack, allergic reaction Discharge Goals Goal(s): Improve disease control Activity Recommendations Activity Limitations: resume your previous activity . Instructions / Follow-Up Instructions / Follow-Up FOLLOW-UP APPOINTMENTS: FAMILY MEDICINE 03/21/2017 11:20 AM Annette Reyes, DO PULMONARY MEDICINE Dr. Fulton OTHER INSTRUCTIONS: Please try to quit smoking. Nicotine patched can help. Drs. Fulton or Eric can offer additional assistance. Take Medrol Dosepak as instructed for allergic reaction. Take Zyrtec daily as you usually do. Use Benadryl 1 or 2 pills every 6 hours as needed if hives come back. Use EpiPen as directed only for severe life-threatening allergic reactions. Seek medical attention if you have: * temperature above 101 * chest pain or trouble breathing * abdominal pain, nausea, vomiting * diarrhea, dark stools or bloody stools * any unanswered questions or concerns Call 911 if symptoms are severe. Call if you have any questions or problems. My cell # is [phone]. You can also reach a [facility] hospitalist on duty at [facility] 24 hours a day by calling [phone]. Please take good care of yourself. Jesus Barksdale . Current Hospital Diet Patient's current hospital diet: Regular Diet Discharge Diet Recommended Diet: Regular Diet Pending Studies Studies pending at discharge: no Medical Emergencies . Who to Call and When: Medical Emergencies: If at any time you feel your situation is an emergency, please call 911 immediately. . Non-Emergent Contact Non-Emergency issues call your: Primary Care Provider, Hospital Doctor, Transfer Driver . . "Provider Documentation" section prepared by Jesus Barksdale. . VTE Core Measure Inpt VTE Proph given/why not?: Enoxaparin (Lovenox)SQ
[2017-03-17 11:02] VITALS: BP 146/81; PULSE 84; TEMP 36.7; O2SAT 96
--- NOTE | 2017-03-18 23:33 | Discharge Summary ---
Discharge Summary Date of Service Mar 18, 2017. Discharge Summary Admission Date: Mar 16, 2017 at 07:45 Discharge Date: Mar 17, 2017 Discharge Disposition: Home Principal Diagnosis: acute hypoxic respiratory failure exacerbation asthma heroin overdose urticaria . Procedures: cardiac monitoring IV meds . Medication Reconciliation New Medications: Diphenhydramine Hcl (Benadryl Allergy) 25 Mg Tab 0 PO UD PRN for ALLERGIC REACTION, #30 TAB 1 or 2 pills every 6 hrs as needed for hives no prescription necessary Epinephrine (Epipen 2-Otis) 0.3 Mg Inj 0.3 MG IM UD PRN for ALLERGIC REACTION, #2 DOSE Use as directed only for severe life-threatening allergic reactions. Methylprednisolone (Medrol Dosepak) 4 Mg Otis 0 PO UD, #1 PKT Taper as directed. Continued Medications: Albuterol Hfa (Ventolin Hfa) 200 Puffs/55301 Mcg Aers 2 PUFFS INH Q4H PRN for SOB/Wheezing, #1 INHALER Amphetamine-Dextroamphetamine 30MG (Adderall Xr 30MG) 1 Cap Cap 30 MG PO BID, CAP Cetirizine (Zyrtec) 10 Mg Tab 10 MG PO DAILY, TAB Fluticasone Furoate-Vilanterol (Breo Ellipta 200-25 Mcg/INH) 1 Inh Inh 1 PUFF PO BID Ipratropium-Albuterol (Duoneb) 3 Ml Nebu 1 TREATMENT INH Q4H PRN for Wheezing Admission Information HPI (per Admitting provider): 31 YO female followed by Dr. Reyes for Family Medicine and Dr. Fulton for Pulmonary Medicine. History of asthma and other problems noted below. Severe exacerbation of asthma April 2015 requiring intubation, mechanical ventilation, transfer to [facility] [place]. Admitted for exacerbation of asthma 03/05/17. Discharged same day AMA. Saw Dr. Fulton for pulmonary follow-up. Started on Breo Ellipta. Asthma symptoms at baseline this seek- nonproductive cough, wheezing, SOB. Still smoking, but cut down. Injected IV heroin during the night. Boyfriend noted that she was unresponsive and having trouble breathing. Apparently patient has naloxone available for emergent use, but it was not administered. ED provider under impression that boyfriend may have administered mouth-mouth resuscitation, but patient is unaware and boyfriend not present. EMS summoned. Patient was cyanotic with agonal respirations upon their arrival. O2 sats were in the 60's. Received assisted ventilations with bag valve mask. Methylprednisolone and nebulizer administered in the field. By the time she arrived to the ED, respiratory status and neuro status improving. O2 sats 84% on RA. She was noted to have periorbital edema and diffuse urticaria. Received IM epinephrine, IV ranitidine, IV diphenhydramine in ED with improvement of urticaria. Received ipratropium / albuterol neb with improvement of wheezing / dyspnea. Patient indicates that she did not have any urticaria before injecting the heroin. She was using a tourniquet, but does not know if it contained latex. Has known allergies to cat dander, dog dander, dust, grass, pollen, but no apparent exposure. No know allergy to latex. . 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 Cyanotic with agonal respirations when EMS arrived; O2 sats were in the 60's. Underlying asthma. Unclear what precipitated event- respiratory depression from heroin or allergic reaction both may have been contributing. No vomiting or apparent aspiration. No infiltrates on chest x-ray. Management of specific problems as noted below. O2 sats 96% on RA by DC. EXACERBATION ASTHMA Associated with extensive urticaria after injecting IV heroin. No apparent pneumonia or bronchitis. Very bronchospastic when EMS arrived. Better after nebs, methylprednisolone, epinephrine. No apparent indication for antibiotics. Received IV steroids and levalbuterol / ipratropium nebs. Discharge on usual nebs + Medrol Dose Pack. Smoking cessation discussed. Follow-up with Dr. Fulton for Pulmonary Medicine. URTICARIA Severe urticaria upon presentation to ED. Multiple known allergies, but no apparent exposure to those triggers. Apparently related to heroin injection - ? other ingredients. Improved after receiving IV methylprednisolone, IM epi, IV ranitidine, IV diphenhydramine. Received IV methylprednisolone, H1 + H2 blockers. Discharge on Medrol Dose Pack, Zyrtec, Benadryl PRN. Given Rx for EpiPen for life-threatening allergic reaction. Follow-up with Dr. Fulton. HEROIN USE Intermittent heroin use. Previous rehab in [place]. Relapsed recently. Patient is interested rehab again, but not locally and does not wish further assistance from this facility. She will make her own arrangements. VTE PROPHYLAXIS Low-moderate risk. SQ heparin. Ambulating. DISPOSITION Discharge to home. Family Medicine follow-up with Dr. Reyes. Pulmonary Medicine follow-up with Dr. Fulton. . Total time spent on discharge = 35 min. This includes examination of the patient, discharge planning, medication reconciliation, and communication with other providers. . Discharge Instructions Date of Service Mar 17, 2017. Admission Reason for Admission: asthma attack, allergic reaction . Discharge Discharge Diagnosis / Problem: asthma attack, allergic reaction Discharge Goals Goal(s): Improve disease control Activity Recommendations Activity Limitations: resume your previous activity . Instructions / Follow-Up Instructions / Follow-Up FOLLOW-UP APPOINTMENTS: FAMILY MEDICINE 03/21/2017 11:20 AM Annette Reyes, DO PULMONARY MEDICINE Dr. Fulton OTHER INSTRUCTIONS: Please try to quit smoking. Nicotine patched can help. Drs. Fulton or Eric can offer additional assistance. Take Medrol Dosepak as instructed for allergic reaction. Take Zyrtec daily as you usually do. Use Benadryl 1 or 2 pills every 6 hours as needed if hives come back. Use EpiPen as directed only for severe life-threatening allergic reactions. Seek medical attention if you have: * temperature above 101 * chest pain or trouble breathing * abdominal pain, nausea, vomiting * diarrhea, dark stools or bloody stools * any unanswered questions or concerns Call 911 if symptoms are severe. Call if you have any questions or problems. My cell # is [phone]. You can also reach a [facility] hospitalist on duty at [facility] 24 hours a day by calling [phone]. Please take good care of yourself. Jesus Barksdale . Current Hospital Diet Patient's current hospital diet: Regular Diet Discharge Diet Recommended Diet: Regular Diet Pending Studies Studies pending at discharge: no Medical Emergencies . Who to Call and When: Medical Emergencies: If at any time you feel your situation is an emergency, please call 911 immediately. . Non-Emergent Contact Non-Emergency issues call your: Primary Care Provider, Hospital Doctor, Art Handler . . "Provider Documentation" section prepared by Jesus Barksdale. . VTE Core Measure Inpt VTE Proph given/why not?: Enoxaparin (Lovenox)SQ . Additional Copies To Annette Reyes,DO; Jseus Fulton M.D.
== END 2017-03-17 11:20 | disposition home or self-care (01) | DRG 189 ==
LOC: EDBD 05:18 → C.EDB 05:20 → C.MED 07:45 → ENRESERV 08:51
PROVIDERS: ADMIT Hospitalist; ATTEND Hospitalist
DX: J96.01 Acute respiratory failure with hypoxia (principal); J45.901 Unspecified asthma with (acute) exacerbation; T40.1X1A Poisoning by heroin, accidental (unintentional), initial encounter; L50.0 Allergic urticaria; F11.90 Opioid use, unspecified, uncomplicated; F17.200 Nicotine dependence, unspecified, uncomplicated; Z79.51 Long term (current) use of inhaled steroids; Z79.899 Other long term (current) drug therapy

== ENCOUNTER 2017-06-28 20:42 | Inpatient (IN) | payer OTHER ==
[~2017-06-28] VITALS: Ht 154.9 cm; Wt 70.5 kg
[~2017-06-28 20:42] MED LIST changes: +CETI10TA84 PO; +DIPH1TAB87 PO; +EPP3/2 IM; +FLUT1INH7 PO; -PRED10TA PO; -SYMIN160 INH
[2017-06-28] MEDS ORDERED: SODIUM CHLORIDE 0.9% 1000ML 1,000 ML IV STA (20:58)
[2017-06-28] MEDS ORDERED: ALBUT/IPRATROP 3MG/0.5MG NEB 3 ML VIAL INH STA ×2 (20:58→22:08)
[2017-06-28] MEDS ORDERED: MAGNESIUM SULFATE 1GM / D5W 1 GM BAG IV STA ×2 (20:58→22:08)
[2017-06-28] MEDS ORDERED: METHYLPREDNISOLONE 125 MG VIAL IV STA (20:58)
--- NOTE | 2017-06-28 21:07 | EMERGENCY ROOM VISIT NOTE ---
History Report prepared by Dara: Erica Orellana Under the Supervision of: Dr. Fracisco Colon M.D. First contact with patient: 20:55 Chief Complaint: RESPIRATORY PROBLEMS Stated Complaint: ASTHMA ATTACK History of Present Illness The patient is a 31 year old female who presents to the Emergency Room with complaints of worsening respiratory problems beginning 5 days ago. The patient reports having a cough and back pain, but denies having fevers. She states that she gets asthma attacks a lot and that when they happen she usually takes Prednisone. The patient states that the prednisone usually helps but that it did not today. She also reports that she has a nebulizer machine and states that she did it every 4 hours today. The patient reports that she is a smoker. The patient states that she has been intubated before and that a few months ago she was in the hospital for an asthma flair-up. She reports that she has been eating and drinking normally. The patient reports that she did not get a flu shot this year and states that she has been around her boyfriend who has been sick. Source of History: patient Onset: 5 days ago Position: other (global) Quality: other (respiratory problems ) Timing: worsening Associated Symptoms: + cough, + back pain, No fevers Review of Systems See HPI for pertinent positives & negatives. A total of 10 systems reviewed and were otherwise negative. Past Medical & Surgical Medical Problems: (1) Acute respiratory failure (2) ADHD (3) Asthma Surgical Problems: (1) Status post bilateral breast implants Family History Breast cancer AUNT Diabetes mellitus FATHER GRANDFATHER GRANDMOTHER Melanoma MOTHER Ovarian cancer AUNT Social History Smoking Status: Current Every Day Smoker Alcohol Use: none Drug Use: heroin Marital Status: in relationship Housing Status: lives with significant other Occupation Status: employed Current/Historical Medications Scheduled Amphetamine-Dextroamphetamine 30MG (Adderall Xr 30MG), 30 MG PO BID Cetirizine (Zyrtec), 10 MG PO DAILY Fluticasone Furoate-Vilanterol (Breo Ellipta 200-25 Mcg/INH), 1 PUFF PO BID Scheduled PRN Albuterol Hfa (Ventolin Hfa), 2 PUFFS INH Q4H PRN for SOB/Wheezing Diphenhydramine Hcl (Benadryl Allergy), 0 PO UD PRN for ALLERGIC REACTION Epinephrine (Epipen 2-Otis), 0.3 MG IM UD PRN for ALLERGIC REACTION Ipratropium-Albuterol (Duoneb), 1 TREATMENT INH Q4H PRN for Wheezing Allergies Coded Allergies: Dust (Verified Allergy, Severe, BREATHING DIFFICULTIES, 03/16/17) POLLEN (Verified Allergy, Severe, BREATHING DIFFICULTIES, 03/16/17) Pollen Extract (Verified Allergy, Severe, BREATHING DIFFICULTIES, 03/16/17 ) Cat Dander (Verified Allergy, Intermediate, BREATHING DIFFICULTIES, ) CAT DANDER/SALIVA Dog Dander (Verified Allergy, Intermediate, BREATHING DIFFICULTIES, ) DOG DANDER/SALIVA Grass (Verified Allergy, Intermediate, BREATHING DIFFICULTIES, 03/16/17) Physical Exam Vital Signs Date Time Temp Pulse Resp B/P (MAP) Pulse Ox O2 Delivery O2 Flow Rate FiO2 06/28/17 22:30 135 16 118/78 100 BiPAP 40 06/28/17 22:19 140 28 116/89 100 BiPAP 40 06/28/17 22:17 142 98 40 06/28/17 22:08 141 32 124/93 92 Nasal Cannula 4.0 06/28/17 21:46 149 06/28/17 20:59 90 Room Air 06/28/17 20:59 94 Nasal Cannula 3.0 06/28/17 20:44 36.8 141 28 124/74 93 Room Air Physical Exam GENERAL: Patient is in no acute distress. HEENT: No acute trauma, normocephalic atraumatic, mucous membranes moist, no nasal congestion, no scleral icterus. NECK: No stridor, no adenopathy, no meningismus, trachea is midline. LUNGS: Wheezing. Decreased breath sounds. Increased respiratory rate. Mild respiratory distress. Speaks in short sentences. HEART: Tachycardic with a regular rhythm. No murmurs. ABDOMEN: Soft, nontender, bowel sounds positive, no hernias, no peritonitis. EXTREMITIES: No cyanosis or edema, full range of motion of all the joints without pain or difficulty, no signs for acute trauma. NEUROLOGIC: Oriented x 3, no acute motor or sensory deficits, no focal weakness. SKIN: No rash, no jaundice, no diaphoresis. Medical Decision & Procedures ER Provider Diagnostic Interpretation: Radiology results as stated below per my review and radiologist interpretation: CHEST ONE VIEW PORTABLE HISTORY: 31 years-old Female EVALUATE RESPIRATORY DISTRESS.DYSPNEA acute respiratory distress COMPARISON: Chest radiograph 03/16/2017 TECHNIQUE: Portable AP view of the chest FINDINGS: Cardiac mediastinal and hilar silhouettes are within normal limits. No pneumothorax, pleural effusion, focal airspace consolidation or overt pulmonary edema. Bones of the chest appear grossly intact. IMPRESSION: No acute process. The above report was generated using voice recognition software. It may contain grammatical, syntax or spelling errors. Electronically signed by: Milo Pham M.D. 06/28/2017 10:02 PM Dictated Date/Time: 06/28/2017 10:01 PM Laboratory Results 06/28/17 21:30 Red Blood Count 4.52, Mean Corpuscular Volume 88.5, Mean Corpuscular Hemoglobin 31.4, Mean Corpuscular Hemoglobin Concent 35.5, Mean Platelet Volume 11.5, Neutrophils (%) (Auto) 90.0, Lymphocytes (%) (Auto) 6.9, Monocytes (%) (Auto) 2.8, Eosinophils (%) (Auto) 0.0, Basophils (%) (Auto) 0.1, Neutrophils # (Auto) 12.23, Lymphocytes # (Auto) 0.94, Monocytes # (Auto) 0.38, Eosinophils # (Auto) 0.00, Basophils # (Auto) 0.01 06/28/17 21:30 Test 06/28/17 21:30 06/28/17 21:40 White Blood Count 13.59 K/uL (4.8-10.8) Red Blood Count 4.52 M/uL (4.2-5.4) Hemoglobin 14.2 g/dL (12.0-16.0) Hematocrit 40.0 % (37-47) Mean Corpuscular Volume 88.5 fL (80-100) Mean Corpuscular Hemoglobin 31.4 pg (25-34) Mean Corpuscular Hemoglobin Concent 35.5 g/dl (32-36) Platelet Count 200 K/uL (130-400) Mean Platelet Volume 11.5 fL (7.4-10.4) Neutrophils (%) (Auto) 90.0 % Lymphocytes (%) (Auto) 6.9 % Monocytes (%) (Auto) 2.8 % Eosinophils (%) (Auto) 0.0 % Basophils (%) (Auto) 0.1 % Neutrophils # (Auto) 12.23 K/uL (1.4-6.5) Lymphocytes # (Auto) 0.94 K/uL (1.2-3.4) Monocytes # (Auto) 0.38 K/uL (0.11-0.59) Eosinophils # (Auto) 0.00 K/uL (0-0.5) Basophils # (Auto) 0.01 K/uL (0-0.2) RDW Standard Deviation 40.6 fL (36.4-46.3) RDW Coefficient of Variation 12.7 % (11.5-14.5) Immature Granulocyte % (Auto) 0.2 % Immature Granulocyte # (Auto) 0.03 K/uL (0.00-0.02) Anion Gap 10.0 mmol/L (3-11) Estimated GFR () 105.1 Estimated GFR (Non- 90.7 BUN/Creatinine Ratio 11.3 (10-20) Calcium Level 9.3 mg/dl (8.5-10.1) Chemistry Specimen Hemolysis Influenza Type A (RT-PCR) Neg for Influ A (NEG) Influenza Type B (RT-PCR) Neg for Influ B (NEG) Laboratory results reviewed by me. Medications Administered Medications (Trade) Dose Ordered Sig/Shawn Route Start Time Stop Time Status Last Admin Dose Admin Albuterol/ Ipratropium (Duoneb) 3 ml NOW STAT INH 06/28/17 20:58 06/28/17 21:01 DC 06/28/17 20:58 3 ML Methylprednisolone Sodium Succinate (Solu-Medrol IV) 80 mg NOW STAT IV 06/28/17 20:58 06/28/17 21:01 DC 06/28/17 21:34 80 MG Sodium Chloride 1,000 ml @ 999 mls/hr Q1H1M STAT IV 06/28/17 20:58 06/28/17 21:58 DC 06/28/17 21:35 999 MLS/HR Magnesium Sulfate (Magnesium Sulfate) 1 gm NOW STAT IV 06/28/17 20:58 06/28/17 21:01 DC 06/28/17 21:35 1 GM Magnesium Sulfate (Magnesium Sulfate) 1 gm NOW STAT IV 06/28/17 22:08 06/28/17 22:10 DC 06/28/17 22:27 1 GM Albuterol/ Ipratropium (Duoneb) 12 ml NOW STAT INH 06/28/17 22:08 06/28/17 22:10 DC 06/28/17 22:31 12 ML ECG Indication: SOB/dyspnea Rate (beats per minute): 143 Rhythm: sinus tachycardia Findings: other (no PVCs, no concerning ST or T wave changes ) Change: Patient's electrocardiogram interpreted by me. ED Course 2056: The patient was evaluated in room C3. A complete history and physical exam was performed. 2057: Ordered Magnesium Sulfate 1 gm IV, Sodium Chloride 1,000 ml @ 999 mls/hr IV, Methylprednisolone Sodium Succinate 80 mg IV, Duoneb 3 ml INH. 2199: I checked on the patient and she is still having chest tightness. She does not want to be intubated, so we will try BiPAP. 2207: Ordered Duoneb 12 ml INH, Magnesium Sulfate 1 gm IV. 2224: Upon reexamination the patient is resting. I discussed results and treatment plan with the patient. She verbalizes agreement and understanding. I spoke with the underwear hemmer of the [facility] service. We discussed the patient's results and findings, and he said to bring the patient up to the unit. The patient will be evaluated by the underwear hemmer for further management. 2231: Discussed the patient's case with Dr. Main. The patient will be evaluated for further management. Medical Decision The patient is a 31 year old female who presents to the ED with complaints of respiratory problems. Differential diagnoses considered include exacerbation of asthma, influenza, acute bronchitis, pneumonia or pneumothorax, failed outpatient treatment, and dehydration. There is a mild leukocytosis, this could be consistent with infection or the stress of her situation. No concerning anemia. No significant electrolyte abnormality or kidney failure. Influenza testing is negative. EKG shows a sinus tachycardia, no acute ischemia. Chest film does not show pneumonia, CHF or pneumothorax. The patient presented in some respiratory distress. She has known asthma. She has been hospitalized and ventilated before because of her asthma. The patient was aggressively managed. She received IV saline, a 1 hour DuoNeb. She was given IV Solu-Medrol and IV magnesium. Despite this treatment, she was still quite dyspneic. The patient was placed on BiPAP and given a second DuoNeb over 1 hour. She was given a second dose of IV magnesium. With this most recent treatment, the patient seems to be improving. Her heart rate is decreasing, she seems more comfortable and in less distress. I did speak to the on-call hospitalist, I talked to the underwear hemmer. Case management is involved. Hospitalization is required. The patient will be transferred to the intensive care unit. The patient appears to have a severe flare of asthma. She has improved somewhat though with treatment here in the ED. Medication Reconcilliation Current Medication List: was personally reviewed by me Blood Pressure Screening Patient's blood pressure: Normal blood pressure Consults Time Called: 2209 Consulting Physician: Scientific Artistisrael Sprague Returned Call: 2224 Discussed the patient's case and he said to bring the patient up to the unit. The patient will be evaluated for further management. Additional Consults: Time Called: 2219 Consulted Physician: Dr. Sommer Returned Call: 2231 Additional Comments: Discussed the patient's case. The patient will be evaluated for further management. Impression Primary Impression: Respiratory distress Additional Impressions: Exacerbation of asthma Tachycardia Critical Care I have personally spent greater than 45 minutes of critical care time in the direct management of this patient. This includes bedside care, interpretation of diagnostic studies, and testing, discussion with consultants, patient, and family members, and other required patient management activities. This 45 minutes is in excess of all separately billable procedures. Scribe Attestation The scribe's documentation has been prepared under my direction and personally reviewed by me in its entirety. I confirm that the note above accurately reflects all work, treatment, procedures, and medical decision making performed by me. Departure Information Dispostion Being Evaluated By Hospitalist Referrals No Doctor, Assigned (PCP) Patient Instructions My [facility] Problem Qualifiers
[2017-06-28 21:45] LABS: BASO % 0.1 %; BASO ABS # 0.01 K/uL (0-0.2); HEMOGLOBIN 14.2 g/dL (12.0-16.0); IG# 0.03 K/uL (0.00-0.02); LYMPH % 6.9 %; LYMPH ABS # 0.94 K/uL (1.2-3.4); MEAN CELL VOLUME 88.5 fL (80-100); MEAN CORPUSCULAR HEMOGLOBIN 31.4 pg (25-34); MEAN CORPUSCULAR HGB CONC 35.5 g/dl (32-36); MEAN PLATELET VOLUME 11.5 fL (7.4-10.4); MONO % 2.8 %; MONO ABS # 0.38 K/uL (0.11-0.59); NEUT ABS # 12.23 K/uL (1.4-6.5); PLATELET COUNT 200 K/uL (130-400); RED CELL DISTRIBUTION WIDTH CV 12.7 % (11.5-14.5); RED CELL DISTRIBUTION WIDTH SD 40.6 fL (36.4-46.3); WHITE BLOOD COUNT 13.59 K/uL (4.8-10.8)
--- NOTE | 2017-06-28 22:04 | DIAGNOSTIC IMAGING REPORT ---
CHEST ONE VIEW PORTABLE HISTORY: 31 years-old Female EVALUATE RESPIRATORY DISTRESS.DYSPNEA acute respiratory distress COMPARISON: Chest radiograph 03/16/2017 TECHNIQUE: Portable AP view of the chest FINDINGS: Cardiac mediastinal and hilar silhouettes are within normal limits. No pneumothorax, pleural effusion, focal airspace consolidation or overt pulmonary edema. Bones of the chest appear grossly intact. IMPRESSION: No acute process. The above report was generated using voice recognition software. It may contain grammatical, syntax or spelling errors. Electronically signed by: Milo Pham M.D. 06/28/2017 10:02 PM Dictated Date/Time: 06/28/2017 10:01 PM
[2017-06-28 22:17] VITALS: PULSE 142; O2SAT 98
[2017-06-28 22:18] LABS: BLOOD UREA NITROGEN 10 mg/dl (7-18); CALCIUM 9.3 mg/dl (8.5-10.1); CARBON DIOXIDE 26 mmol/L (21-32); CREATININE 0.86 mg/dl (0.60-1.20); GLUCOSE 163 mg/dl (70-99); POTASSIUM 3.8 mmol/L (3.5-5.1); SODIUM 140 mmol/L (136-145)
[2017-06-28 22:50] LABS: INFLUENZA A PCR Neg for Influ A (NEG); INFLUENZA B PCR Neg for Influ B (NEG)
[2017-06-28 23:30] VITALS: PULSE 138; O2SAT 95
[2017-06-28] MEDS ORDERED: ICU PROTOCOL FOR HYPERGLYCEMIA PRN (23:30)
[2017-06-28] MEDS ORDERED: MOME6000 (23:33)
[2017-06-28] MEDS ORDERED: ACETAMINOPHEN 325 MG TAB PO PRN (23:45)
[2017-06-28] MEDS ORDERED: PATIENT'S HEIGHT AND/OR WEIGHT NEEDED SCH (23:45)
[2017-06-28] MEDS ORDERED: LEVALBUTEROL 1.25MG/3ML NEB INH PRN (23:45)
--- NOTE | 2017-06-28 23:45 | History and Physical ---
History & Physical Date & Time of Service: Jun 28, 2017 at 23:35 Chief Complaint: Asthma With Acute Exacerbation Primary Care Physician: Annette Reyes History of Present Illness Source: patient, family, clinic records, hospital records 31 yo F smoker with a h/o prior heroin use and asthma requiring intubation in the past presents with 5 days of coughing and shortness of breath despite use of prednisone and nebulizers at home. She was recently admitted twice in Feb 2017 for respiratory distress 2/2 asthma and once for a heroin overdose despite stating she has been sober for one year now. She reports recently going to [place] and her mother developed an LINDY; mom and her boyfriend are both ill with LINDY. She denies any fevers, chills, body aches, nausea, vomiting or chest pain. She is tachycardic in the ER and is on Adderall 30 XR twice daily. ROS also reveals some back pain and mild frontal headache she believes is related to the coughing. She reports actively smoking 1 ppd of cigarettes and states that she quit 3 days ago. She does have a h/o intubation for asthma attacks in the past. She reports not getting the flu shot and says she is against them. Past Medical/Surgical History Medical Problems: (1) ADHD Status: Chronic (2) Asthma Permanent Comment: required intubation / mech vent Apr 2015 Status: Chronic (3) Heroin abuse Status: Chronic Surgical Problems: (1) Status post bilateral breast implants Status: Chronic (2) Status post nasal surgery Status: Chronic Social History Problems: (1) Smoker Status: Chronic Family History Breast cancer AUNT Diabetes mellitus FATHER GRANDFATHER GRANDMOTHER Melanoma MOTHER Ovarian cancer AUNT Social History Smoking Status: Current Every Day Smoker Smokeless Tobacco Use: No Alcohol Use: none Drug Use: heroin Marital Status: in relationship Housing status: unknown Occupational Status: other Immunizations History of Influenza Vaccine: No History of Tetanus Vaccine?: Yes Tetanus Immunization Date: Feb 07, 2012 History of Pneumococcal: Yes Pneumococcal Date: Feb 07, 2012 History of Hepatitis B Vaccine: Yes Hepatitis Immunization Date: Oct 31, 2003 Multi-Drug Resistant Organisms History of MDRO: No Allergies Coded Allergies: Dust (Verified Allergy, Severe, BREATHING DIFFICULTIES, 03/16/17) POLLEN (Verified Allergy, Severe, BREATHING DIFFICULTIES, 03/16/17) Pollen Extract (Verified Allergy, Severe, BREATHING DIFFICULTIES, 03/16/17 ) Cat Dander (Verified Allergy, Intermediate, BREATHING DIFFICULTIES, ) CAT DANDER/SALIVA Dog Dander (Verified Allergy, Intermediate, BREATHING DIFFICULTIES, ) DOG DANDER/SALIVA Grass (Verified Allergy, Intermediate, BREATHING DIFFICULTIES, 03/16/17) Home Medications Scheduled Amphetamine-Dextroamphetamine 30MG (Adderall Xr 30MG), 30 MG PO BID Cetirizine (Zyrtec), 10 MG PO DAILY Fluticasone Furoate-Vilanterol (Breo Ellipta 200-25 Mcg/INH), 1 PUFF PO BID Scheduled PRN Albuterol Hfa (Ventolin Hfa), 2 PUFFS INH Q4H PRN for SOB/Wheezing Diphenhydramine Hcl (Benadryl Allergy), 0 PO UD PRN for ALLERGIC REACTION Epinephrine (Epipen 2-Otis), 0.3 MG IM UD PRN for ALLERGIC REACTION Ipratropium-Albuterol (Duoneb), 1 TREATMENT INH Q4H PRN for Wheezing Mometasone Furoate (Nasal) (Mometasone Furoate), 2 SPRAY NA BID PRN for Seasonal Allergies Review of Systems At least ten systems were reviewed and negative except as indicated in HPI above. Physical Exam Vital Signs Date Time Temp Pulse Resp B/P (MAP) Pulse Ox O2 Delivery O2 Flow Rate FiO2 06/28/17 22:54 135 16 118/78 100 06/28/17 22:30 135 16 118/78 100 BiPAP 40 06/28/17 22:19 140 28 116/89 100 BiPAP 40 06/28/17 22:17 142 98 40 06/28/17 22:08 141 32 124/93 92 Nasal Cannula 4.0 06/28/17 21:46 149 06/28/17 20:59 90 Room Air 06/28/17 20:59 94 Nasal Cannula 3.0 06/28/17 20:44 36.8 141 28 124/74 93 Room Air General Appearance: WD/WN, no apparent distress Head: normocephalic, atraumatic Eyes: normal inspection, PERRL, sclerae normal ENT: hearing grossly normal Neck: supple, no adenopathy, no JVD Respiratory/Chest: chest non-tender, no accessory muscle use, + wheezing, + pertinent finding (mild accessory muscle use and conversational dyspnea, BIPAP in place. ) Cardiovascular: no edema, no gallop, no murmur, normal peripheral pulses, + tachycardia Abdomen/GI: normal bowel sounds, non tender, soft Back: normal inspection Extremities/Musculoskelatal: normal inspection, no pedal edema, normal range of motion Neurologic/Psych: retail account representative II-XII nml as tested, no motor/sensory deficits, alert, normal mood/affect, oriented x 3 Skin: normal color, warm/dry, no rash Diagnostics Laboratory Results 06/28/17 21:30 Red Blood Count 4.52, Mean Corpuscular Volume 88.5, Mean Corpuscular Hemoglobin 31.4, Mean Corpuscular Hemoglobin Concent 35.5, Mean Platelet Volume 11.5, Neutrophils (%) (Auto) 90.0, Lymphocytes (%) (Auto) 6.9, Monocytes (%) (Auto) 2.8, Eosinophils (%) (Auto) 0.0, Basophils (%) (Auto) 0.1, Neutrophils # (Auto) 12.23, Lymphocytes # (Auto) 0.94, Monocytes # (Auto) 0.38, Eosinophils # (Auto) 0.00, Basophils # (Auto) 0.01 06/28/17 21:30 Test 06/28/17 21:30 06/28/17 21:40 06/29/17 00:18 06/29/17 00:33 White Blood Count 13.59 K/uL (4.8-10.8) Red Blood Count 4.52 M/uL (4.2-5.4) Hemoglobin 14.2 g/dL (12.0-16.0) Hematocrit 40.0 % (37-47) Mean Corpuscular Volume 88.5 fL (80-100) Mean Corpuscular Hemoglobin 31.4 pg (25-34) Mean Corpuscular Hemoglobin Concent 35.5 g/dl (32-36) Platelet Count 200 K/uL (130-400) Mean Platelet Volume 11.5 fL (7.4-10.4) Neutrophils (%) (Auto) 90.0 % Lymphocytes (%) (Auto) 6.9 % Monocytes (%) (Auto) 2.8 % Eosinophils (%) (Auto) 0.0 % Basophils (%) (Auto) 0.1 % Neutrophils # (Auto) 12.23 K/uL (1.4-6.5) Lymphocytes # (Auto) 0.94 K/uL (1.2-3.4) Monocytes # (Auto) 0.38 K/uL (0.11-0.59) Eosinophils # (Auto) 0.00 K/uL (0-0.5) Basophils # (Auto) 0.01 K/uL (0-0.2) RDW Standard Deviation 40.6 fL (36.4-46.3) RDW Coefficient of Variation 12.7 % (11.5-14.5) Immature Granulocyte % (Auto) 0.2 % Immature Granulocyte # (Auto) 0.03 K/uL (0.00-0.02) Anion Gap 10.0 mmol/L (3-11) Estimated GFR () 105.1 Estimated GFR (Non- 90.7 BUN/Creatinine Ratio 11.3 (10-20) Calcium Level 9.3 mg/dl (8.5-10.1) Phosphorus Level 2.6 mg/dl (2.5-4.9) Magnesium Level 1.8 mg/dl (1.8-2.4) Total Bilirubin 0.5 mg/dl (0.2-1) Direct Bilirubin 0.1 mg/dl (0-0.2) Aspartate Amino Transf (AST/SGOT) 78 U/L (15-37) Alanine Aminotransferase (ALT/SGPT) 206 U/L (12-78) Alkaline Phosphatase 52 U/L (45-117) Total Protein 7.7 gm/dl (6.4-8.2) Albumin 3.7 gm/dl (3.4-5.0) Chemistry Specimen Hemolysis Influenza Type A (RT-PCR) Neg for Influ A (NEG) Influenza Type B (RT-PCR) Neg for Influ B (NEG) Lactic Acid Level 2.6 mmol/L (0.4-2.0) Test 06/29/17 01:14 06/29/17 02:40 Bedside Glucose 205 mg/dl (70-90) Urine Test NEG (NEG) Date/Time Source Procedure Growth Status 06/28/17 23:42 Nasal MRSA DNA Surveillance Screen - Final Specimen Negative for MRSA by DNA Probe Complete 06/29/17 02:25 Sputum Expectorated Sputum Gram Stain Pending Received 06/29/17 02:25 Sputum Expectorated Sputum Sputum Culture Pending Received Results Past 24 Hours Test 06/28/17 21:30 06/28/17 21:40 Range/Units White Blood Count 13.59 4.8-10.8 K/uL Red Blood Count 4.52 4.2-5.4 M/uL Hemoglobin 14.2 12.0-16.0 g/dL Hematocrit 40.0 37-47 % Mean Corpuscular Volume 88.5 80-100 fL Mean Corpuscular Hemoglobin 31.4 25-34 pg Mean Corpuscular Hemoglobin Concent 35.5 32-36 g/dl Platelet Count 200 130-400 K/uL Mean Platelet Volume 11.5 7.4-10.4 fL Neutrophils (%) (Auto) 90.0 % Lymphocytes (%) (Auto) 6.9 % Monocytes (%) (Auto) 2.8 % Eosinophils (%) (Auto) 0.0 % Basophils (%) (Auto) 0.1 % Neutrophils # (Auto) 12.23 1.4-6.5 K/uL Lymphocytes # (Auto) 0.94 1.2-3.4 K/uL Monocytes # (Auto) 0.38 0.11-0.59 K/uL Eosinophils # (Auto) 0.00 0-0.5 K/uL Basophils # (Auto) 0.01 0-0.2 K/uL RDW Standard Deviation 40.6 36.4-46.3 fL RDW Coefficient of Variation 12.7 11.5-14.5 % Immature Granulocyte % (Auto) 0.2 % Immature Granulocyte # (Auto) 0.03 0.00-0.02 K/uL Sodium Level 140 136-145 mmol/L Potassium Level 3.8 3.5-5.1 mmol/L Chloride Level 104 98-107 mmol/L Carbon Dioxide Level 26 21-32 mmol/L Anion Gap 10.0 3-11 mmol/L Blood Urea Nitrogen 10 7-18 mg/dl Creatinine 0.86 0.60-1.20 mg/dl Estimated GFR () 105.1 Estimated GFR (Non- 90.7 BUN/Creatinine Ratio 11.3 10-20 Random Glucose 163 70-99 mg/dl Calcium Level 9.3 8.5-10.1 mg/dl Chemistry Specimen Hemolysis Influenza Type A (RT-PCR) Neg for Influ A NEG Influenza Type B (RT-PCR) Neg for Influ B NEG Diagnostic Radiology CHEST ONE VIEW PORTABLE HISTORY: 31 years-old Female EVALUATE RESPIRATORY DISTRESS.DYSPNEA acute respiratory distress COMPARISON: Chest radiograph 03/16/2017 TECHNIQUE: Portable AP view of the chest FINDINGS: Cardiac mediastinal and hilar silhouettes are within normal limits. No pneumothorax, pleural effusion, focal airspace consolidation or overt pulmonary edema. Bones of the chest appear grossly intact. IMPRESSION: No acute process EKG ST 143 Impression Assessment and Plan 31 yo asthmatic smoker presents with difficulty breathing and diffuse wheezing with worsening respiratory distress 1. Asthma exacerbation--poss 2/2 viral illness with mother and boyfriend both ill in the setting of smoking. Diffuse wheezing on exam. Denies chest pain. No infiltrate seen on CXR but with ICU status will cover her with Levaquin empirically. In the ER she received solumedrol, Mg, and a 1 hour neb but was not much better until BIPAP x 2 hours which is when she started to calm down. Will cont Solumedrol 40 IV q6 and Xopenex. ICU team to take over management. Sees Dr. Fulton (pulm) as outpatient. 2. ADHD-on Adderall XR 30mg PO BID, however, in the setting of tachycardia and anxiety will hold this. 3. Tachycardia-likely multifactorial related to amphetamines and pulmonary distress. Decreasing slowly with improvement in pulmonary status 4. Tobacco use-encouraged to quit smoking. Educated her on the classes available here locally. Pt requests nicotine patch. 5. h/o IVDU (heroin)-avoid narcotics if at all possible. DVT proph-SCDs Full Code Dispo-to ICU. DO Celestine Goins Hospitalist Level of Care Critical Care Resuscitation Status FULL RESUSCITATION VTE Prophylaxis VTE Risk Assessment Done? Y/N: Yes Risk Level: Moderate Given or contraindicated: SCD's Note Total Time: Critical Care 30 - 74 minutes
--- NOTE | 2017-06-28 23:53 | Critical Care Consultation ---
Critical Care Consultation Date of Consultation: Jun 28, 2017. Attending Physician: Jesus Barksdale M.D. Reason for Consultation: 31-year-old female with acute asthma exacerbation with respiratory distress requiring noninvasive ventilatory techniques, aggressive pulmonary toilet, and anxiolytic therapy. History of Present Illness Patient is a 31-year-old female with a significant past medical history of asthma with previous exacerbations resulting in intubation who is admitted to the ICU secondary to acute asthma exacerbation with respiratory distress. Upon presentation to the ER, the patient was treated with DuoNeb initially as well as intravenous steroids and IV fluids. She received 2 g of magnesium. Her symptoms continue to worsen and the patient was placed on BiPAP and received an hour-long DuoNeb. Initially, there was question of intubation, however the patient improved greatly with BiPAP. She did have a slight leukocytosis of 13, 000. She had no significant electrolyte disturbances. Her chest x-ray was otherwise unremarkable. Upon arrival to the ICU, the patient has BiPAP in place. She is tachypneic, tachycardic, and hypertensive. She is not hypoxic. She is able to answer questions in near complete sentences. She has wheezes on inspiration throughout all lung mosley. She reports that she does feel better than when she initially arrived in the emergency department. The patient reports that she began feeling short of breath and developing wheezing and cough approximately 5 days ago. She was in contact with sick relatives including her mother and significant other. She has not had nasal congestion, sore throat, fevers, or other viral prodrome herself, however. She feels that her presentation is been consistent with previous episodes of asthma exacerbation. She has been using her albuterol inhaler more frequently over the last few days. Her symptoms worsened today which proctored visit to the emergency department. The patient does admit to staying at a friend's house 2 days ago who owns a cat. She is allergic to cat dander as well as dog dander. She admittedly reports that her symptoms did worsen after this. Patient denies any chest discomfort, but does complain of some back pain after coughing multiple times. The patient rates her current discomfort as a 4/10. She denies any headaches, dizziness, lightheadedness, chest pain, palpitations, hemoptysis, nausea, vomiting, abdominal pain, hematochezia, melena, hematuria, or dysuria. The patient does smoke approximately one pack of cigarette per day, however she admits that she reports that she quit 3 days ago in conjunction with the current illness. She does not drink alcohol. 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 She admits to using intravenously approximately 10 times. Past Medical/Surgical History Medical Problems: (1) Acute respiratory failure (2) ADHD (3) Asthma Surgical Problems: (1) Status post bilateral breast implants Family History Breast cancer AUNT Diabetes mellitus FATHER GRANDFATHER GRANDMOTHER Melanoma MOTHER Ovarian cancer AUNT Noncontributory Social History Smoking Status: Current Every Day Smoker Smokeless Tobacco Use: No Alcohol Use: none Drug Use: heroin Marital Status: in relationship Housing Status: lives with significant other Occupation Status: other Allergies Coded Allergies: Dust (Verified Allergy, Severe, BREATHING DIFFICULTIES, 03/16/17) POLLEN (Verified Allergy, Severe, BREATHING DIFFICULTIES, 03/16/17) Pollen Extract (Verified Allergy, Severe, BREATHING DIFFICULTIES, 03/16/17 ) Cat Dander (Verified Allergy, Intermediate, BREATHING DIFFICULTIES, ) CAT DANDER/SALIVA Dog Dander (Verified Allergy, Intermediate, BREATHING DIFFICULTIES, ) DOG DANDER/SALIVA Grass (Verified Allergy, Intermediate, BREATHING DIFFICULTIES, 03/16/17) Home Medications Scheduled Amphetamine-Dextroamphetamine 30MG (Adderall Xr 30MG), 30 MG PO BID Cetirizine (Zyrtec), 10 MG PO DAILY Fluticasone Furoate-Vilanterol (Breo Ellipta 200-25 Mcg/INH), 1 PUFF PO BID Scheduled PRN Albuterol Hfa (Ventolin Hfa), 2 PUFFS INH Q4H PRN for SOB/Wheezing Diphenhydramine Hcl (Benadryl Allergy), 0 PO UD PRN for ALLERGIC REACTION Epinephrine (Epipen 2-Otis), 0.3 MG IM UD PRN for ALLERGIC REACTION Ipratropium-Albuterol (Duoneb), 1 TREATMENT INH Q4H PRN for Wheezing Mometasone Furoate (Nasal) (Mometasone Furoate), 2 SPRAY NA BID PRN for Seasonal Allergies Current Inpatient Medications Current Inpatient Medications Medications (Trade) Dose Ordered Sig/Shawn Route Start Time Stop Time Status Last Admin Dose Admin Potassium Chloride/Dextrose/ Sod Cl 1,000 ml @ 125 mls/hr Q8H IV 06/28/17 23:59 07/28/17 23:58 Levalbuterol (Xopenex 1.25MG/ 3ML Neb) 1.25 mg Q6R INH 06/29/17 03:00 07/29/17 02:59 Miscellaneous Information (Icu Protocol For Hyperglycemia) 1 ea PRN PRN N/A 06/28/17 23:30 06/30/17 23:29 Levofloxacin 750 mg/Prmx 150 ml @ 100 mls/hr Q24H IV 06/29/17 00:00 07/06/17 00:00 Nicotine (Nicoderm Cq 21MG Patch) 1 patch QAM TD 06/29/17 09:00 07/29/17 08:59 Miscellaneous (Remove Nicoderm Patch) 1 ea HS N/A 06/29/17 21:00 07/29/17 20:59 Cetirizine HCl (zyrTEC TAB) 10 mg DAILY PO 06/29/17 09:00 07/29/17 08:59 Non-Formulary Medication (Fluticasone Furoate-Vilanterol (Breo Ellipta 200-25 Mcg/INH)) 1 puff BID PO 06/29/17 09:00 07/29/17 08:59 UNV Non-Formulary Medication (Mometasone Furoate (Nasal) (Mometasone Furoate)) 2 spray BID PRN NA 06/28/17 23:45 07/28/17 23:44 UNV Acetaminophen (Tylenol Tab) 650 mg Q4H PRN PO 06/28/17 23:45 07/28/17 23:44 Dexmedetomidine HCl 200 mcg/ Sodium Chloride 50 ml @ 0 mls/hr Q0M PRN IV 06/28/17 23:38 07/02/17 23:37 Levalbuterol (Xopenex 1.25MG/ 3ML Neb) 1.25 mg Q2H PRN INH 06/28/17 23:45 07/28/17 23:44 Miscellaneous Information (Patient'S Height And/Or Weight Needed) 1 ea Q2H N/A 06/28/17 23:45 07/28/17 23:44 Review of Systems A complete 10-point Review of Systems was discussed with the patient, with pertinent positives and negatives listed in the History of Present Illness. All remaining Review of Systems questions can be considered negative unless otherwise specified. Physical Exam Date Time Temp Pulse Resp B/P (MAP) Pulse Ox O2 Delivery O2 Flow Rate FiO2 06/28/17 22:54 135 16 118/78 100 06/28/17 22:30 135 16 118/78 100 BiPAP 40 06/28/17 22:19 140 28 116/89 100 BiPAP 40 06/28/17 22:17 142 98 40 06/28/17 22:08 141 32 124/93 92 Nasal Cannula 4.0 06/28/17 21:46 149 06/28/17 20:59 90 Room Air 06/28/17 20:59 94 Nasal Cannula 3.0 06/28/17 20:44 36.8 141 28 124/74 93 Room Air VITAL SIGNS - Vital signs and nursing notes were reviewed. GENERAL - 31-year-old female appearing her stated age who is in mild distress. Tachypneic, but able to answer questions in near full sentences. HEAD - NC/AT. EYES - PERRL with EOMI bilaterally. Sclera anicteric. Palpebral conjunctiva pink and moist with no injection noted. EARS - No deformities of external structures noted on gross examination bilaterally. NOSE - Midline and without cyanosis. No epistaxis or purulent drainage noted. MOUTH/OROPHARYNX - Without perioral cyanosis. Buccal mucosa pink and moist and without leukoplakia. NECK - Neck with FROM. Supple to palpation. LUNGS - Chest wall symmetric without accessory muscle use, intercostals retractions, or central cyanosis. Diffuse inspiratory wheezes noted throughout all lung mosley. No rales or rhonchi appreciated. CARDIAC - Tachycardic. No murmur, rubs, or gallops appreciated. No reproducible tenderness to palpation appreciated over the anterior chest wall. ABDOMEN - Abdominal contour flat and without pulsations or visible masses. BS normoactive all four quadrants. No tenderness, palpable masses, hepatosplenomegaly, or ascites noted. EXTREMITIES - No clubbing or peripheral cyanosis. No pretibial edema present. +1 /5 radial and dorsalis pedis pulses palpated throughout. +5/5 strength noted in UE/LE bilaterally. NEUROLOGIC - Cranial nerves II through XII grossly intact. Sensory intact to light touch throughout. PSYCH - A&Ox3 and cooperates fully with examiner. Pt is very pleasant and interacts well with examiner. Laboratory Results Last 24 Hours Test 06/28/17 21:30 06/28/17 21:40 White Blood Count 13.59 K/uL Red Blood Count 4.52 M/uL Hemoglobin 14.2 g/dL Hematocrit 40.0 % Mean Corpuscular Volume 88.5 fL Mean Corpuscular Hemoglobin 31.4 pg Mean Corpuscular Hemoglobin Concent 35.5 g/dl Platelet Count 200 K/uL Mean Platelet Volume 11.5 fL Neutrophils (%) (Auto) 90.0 % Lymphocytes (%) (Auto) 6.9 % Monocytes (%) (Auto) 2.8 % Eosinophils (%) (Auto) 0.0 % Basophils (%) (Auto) 0.1 % Neutrophils # (Auto) 12.23 K/uL Lymphocytes # (Auto) 0.94 K/uL Monocytes # (Auto) 0.38 K/uL Eosinophils # (Auto) 0.00 K/uL Basophils # (Auto) 0.01 K/uL RDW Standard Deviation 40.6 fL RDW Coefficient of Variation 12.7 % Immature Granulocyte % (Auto) 0.2 % Immature Granulocyte # (Auto) 0.03 K/uL Sodium Level 140 mmol/L Potassium Level 3.8 mmol/L Chloride Level 104 mmol/L Carbon Dioxide Level 26 mmol/L Anion Gap 10.0 mmol/L Blood Urea Nitrogen 10 mg/dl Creatinine 0.86 mg/dl Estimated GFR () 105.1 Estimated GFR (Non- 90.7 BUN/Creatinine Ratio 11.3 Random Glucose 163 mg/dl Calcium Level 9.3 mg/dl Chemistry Specimen Hemolysis Influenza Type A (RT-PCR) Neg for Influ A Influenza Type B (RT-PCR) Neg for Influ B Diagnostic Results Radiological imaging and reports were reviewed by myself. Radiologist's Interpretation as follows: CHEST ONE VIEW PORTABLE HISTORY: 31 years-old Female EVALUATE RESPIRATORY DISTRESS.DYSPNEA acute respiratory distress COMPARISON: Chest radiograph 03/16/2017 TECHNIQUE: Portable AP view of the chest FINDINGS: Cardiac mediastinal and hilar silhouettes are within normal limits. No pneumothorax, pleural effusion, focal airspace consolidation or overt pulmonary edema. Bones of the chest appear grossly intact. IMPRESSION: No acute process. Assessment & Plan (1) Asthma with acute exacerbation (2) Tachycardia (3) Respiratory distress (4) Asthma Reason Critically Ill: 31-year-old female with acute asthma exacerbation with respiratory distress requiring noninvasive ventilatory techniques, aggressive pulmonary toilet, and anxiolytic therapy. Neuro - * CAM ICU: NEGATIVE * Sedation - Will add Precedex gtt in the acute phase of respiratory distress on BiPAP. * Titrate down as tolerated. * Should also help with hypertension and tachycardia. * ADHD: * Will hold off on nighttime Adderall dose. * History of substance abuse: * Will add Urine Tox with HTN/Tachy presentation. Cardiac - * Tachycardia: * Likely related to stress of illness and Albuterol administration. * EKG shows sinus tach only w/ no changes from priors. QTc 444ms. * Will continue with fluids. * Will use Xopenex versus Albuterol. * EKGs for any chest pain. * Monitor on Telemetry. Respiratory - * Acute Asthma Exacerbation with Respiratory Distress: * Aggressive pulmonary toilet. * Steroids. * BiPAP in the acute setting. * Agree with antibiotic coverage in the acute phase. Will check Procalcitonin. * Negative CXR - will repeat in the AM. * Will add sputum cultures. * May require aggressive ventilatory techniques if failed BiPAP. * Consider Heliox as she has received this treatment in the past. * Daily Cigarette smoker: * Counseled on smoking cessation. * Nicotine patch PRN. GI - * NPO overnight until we see how she responds clinically to BiPAP. * Normal diet after that. RENAL/LYTES - * No acute electrolyte derangements - will monitor. * Received IV Mag in the setting of asthma exacerbation with respiratory distress. Will trend. Supplement as needed. - * Will add UA and Urine Preg * Will also add tox. ENDO - * Initial BSGs elevated in the setting of stress and recent IV Antibiotic administration. * ISS/gtt per protocol. * No h/o Thyroid Disease. HEME - * Stable H&H - will monitor. ID - * Asthma with exacerbation: * Daily smoker. * Agree with antibiotic coverage in the acute phase. * Will add sputum cultures. * Influenza NEGATIVE. * Will trend Lactate. LINES/IV ACCESS - * PIVs intact. DVT PROPHYLAXIS - * Lovenox 40mg SQ bid. * SCDs. I have personally spent 40 minutes of critical care time in the direct management of this patient. This is a life/limb threatening event. This includes time spent evaluating patient, direct bedside care, chart review, placing orders, interpretation of diagnostic studies, discussion with consultants, patient, and family members, as well as other required patient management activities. This time is exclusive of all separately billable procedures, and teaching time and separate from and in addition to any other critical care service time. Thank you for this consultation allow us to be part of this patient's care. Please refer to my attending physician's documentation for any further recommendations. Problem Qualifiers (1) Asthma with acute exacerbation: Asthma severity: unspecified severity Asthma persistence: unspecified Qualified Codes: J45.901 - Unspecified asthma with (acute) exacerbation
[2017-06-28 23:56] VITALS: BP 158/92; PULSE 142; TEMP 36.6; O2SAT 99; Ht 154.9 cm; Wt 70.5 kg
[2017-06-28] MEDS ORDERED: D5NSS + 20MEQ KCL 1,000 ML IV SCH (23:59)
[2017-06-29] VITALS (17 sets, daily range): BP systolic 110–140; BP diastolic 66–93; PULSE 86–120; TEMP 36–36.7; O2SAT 97–100
[2017-06-29] MEDS ORDERED: ICU PROTOCOL FOR HYPERGLYCEMIA PRN (00:30)
[2017-06-29] MEDS: LEVOFLOXACIN / D5W 750 MG in PREMIXED IN D5W 150 ML IV SCH ×2 (00:50→23:11)
[2017-06-29] MEDS: DexMEDEtomidine HCL IV 200 MCG in SODIUM CHLORIDE 0.9% 50ML 48 ML IV PRN ×3 (00:50→18:06)
[2017-06-29 02:13] LABS: ALBUMIN 3.7 gm/dl (3.4-5.0); ALKALINE PHOSPHATASE 52 U/L (45-117); ALT/SGPT 206 U/L (12-78); AST/SGOT 78 U/L (15-37); PHOSPHORUS 2.6 mg/dl (2.5-4.9); TOTAL PROTEIN 7.7 gm/dl (6.4-8.2)
[2017-06-29] MEDS: IPRATROPIUM BROMIDE NEB SOLN 0.02% 2.5 ML VIAL INH SCH ×4 (02:15→20:35)
[2017-06-29] MEDS: LEVALBUTEROL 1.25MG/3ML NEB INH SCH ×4 (02:15→20:35)
--- NOTE | 2017-06-29 07:24 | DIAGNOSTIC IMAGING REPORT ---
CHEST ONE VIEW PORTABLE CLINICAL HISTORY: f/u pain COMPARISON STUDY: 06/28/2017 FINDINGS: The bones soft tissues and hemidiaphragms are normal. The cardiomediastinal silhouette is normal. The lungs are clear. The pulmonary vasculature is normal. IMPRESSION: Negative chest. The above report was generated using voice recognition software. It may contain grammatical, syntax or spelling errors. Electronically signed by: Pal Velasquez M.D. 06/29/2017 7:23 AM Dictated Date/Time: 06/29/2017 7:12 AM
[2017-06-29] MEDS: CETIRIZINE HCL 10 MG TAB PO SCH (08:03)
[2017-06-29] MEDS: BENZONATATE 100MG CAP PO SCH ×3 (08:03→20:27)
[2017-06-29] MEDS: NICOTINE 21 MG/24 HR TDSY TD SCH (08:03)
[2017-06-29] MEDS ORDERED: DEXTROSE 50% 50 ML SYR IV PRN (08:45)
[2017-06-29] MEDS ORDERED: GLUCAGON FOR INJ 1 MG VIAL SQ PRN (08:45)
[2017-06-29] MEDS ORDERED: GLUCOSE 40% GEL 15 GM TUBE PO PRN (08:45)
[2017-06-29] MEDS ORDERED: INSULIN ASPART 100 UNITS/ML 3 ML PEN SC ONE (08:45)
[2017-06-29] MEDS ORDERED: GLUCOSE 10 TABS/TUBE PO PRN (08:45)
[2017-06-29] MEDS: NORMOSOL R 1,000 ML IV SCH ×2 (09:05→17:57)
[2017-06-29] MEDS: METHYLPREDNISOLONE IV 40 MG in SYRINGE 0 ML IV SCH ×3 (09:14→22:06)
[2017-06-29] MEDS: INSULIN ASPART 100 UNITS/ML 3 ML PEN SC SCH ×2 (11:41→18:00)
[2017-06-29] MEDS: ENOXAPARIN 40 MG/0.4 ML SYR SQ SCH (11:41)
--- NOTE | 2017-06-29 17:53 | Critical Care Progress Note ---
Critical Care Progress Note Date of Service Jun 29, 2017. Attending Dr. Piña Subjective Still wheezing extensively Wearing BIPAP, sitting up. Wants to be left alone most of the time Refused blood work Objective General: Young female, mild respiratory distress, on NIV Heent: NC/AT Lungs: extensive bilateral expiratory wheezing, good air movement otherwise CVS: S1S2 reg Ext: no edema Assessment & Plan Asthma exacerbation Plan: Continue iv steroids, around the clock bronchodilators May hold outpatient inhalers for now, while on iv steroids BIPAP as needed for respiratory distress Seems improved since admission, hopefully will avoid an intubation On Precedex for significant anxiety Empiric levofloxacin for 48 hours, may stop if no evidence of infection DVT prophylaxis: Lovenox Monitor in the ICU given respiratory distress, need for close monitoring, at high risk for intubation Data Medications: Current Inpatient Medications Medications (Trade) Dose Ordered Sig/Shawn Route Start Time Stop Time Status Last Admin Dose Admin Levalbuterol (Xopenex 1.25MG/ 3ML Neb) 1.25 mg Q6R INH 06/29/17 03:00 07/29/17 02:59 06/29/17 14:20 1.25 MG Miscellaneous Information (Icu Protocol For Hyperglycemia) 1 ea PRN PRN N/A 06/28/17 23:30 06/30/17 23:29 Levofloxacin 750 mg/Prmx 150 ml @ 100 mls/hr Q24H IV 06/29/17 00:00 07/01/17 23:59 06/29/17 00:50 100 MLS/HR Nicotine (Nicoderm Cq 21MG Patch) 1 patch QAM TD 06/29/17 09:00 07/29/17 08:59 06/29/17 08:03 1 PATCH Miscellaneous (Remove Nicoderm Patch) 1 ea HS N/A 06/29/17 21:00 07/29/17 20:59 Cetirizine HCl (zyrTEC TAB) 10 mg DAILY PO 06/29/17 09:00 07/29/17 08:59 06/29/17 08:03 10 MG Miscellaneous Information (Order Awaiting Action) 1 ea QS N/A 06/29/17 08:00 07/29/17 07:59 Miscellaneous Information (Order Awaiting Action) 1 ea QS N/A 06/29/17 08:00 07/29/17 07:59 Acetaminophen (Tylenol Tab) 650 mg Q4H PRN PO 06/28/17 23:45 07/28/17 23:44 Dexmedetomidine HCl 200 mcg/ Sodium Chloride 50 ml @ 0 mls/hr Q0M PRN IV 06/28/17 23:38 07/02/17 23:37 06/29/17 04:33 8.5 MLS/HR Levalbuterol (Xopenex 1.25MG/ 3ML Neb) 1.25 mg Q2H PRN INH 06/28/17 23:45 07/28/17 23:44 Enoxaparin Sodium (Lovenox Inj) 40 mg Q24H SQ 06/29/17 11:00 07/29/17 10:59 06/29/17 11:41 40 MG Ipratropium [place] (Atrovent 0.02% 0.5MG/2.5ML Neb) 0.5 mg Q6R INH 06/29/17 03:00 07/29/17 02:59 06/29/17 14:20 0.5 MG Benzonatate (Tessalon Perles Cap) 100 mg TID PO 06/29/17 09:00 07/29/17 08:59 06/29/17 12:59 100 MG Methylprednisolone Sodium Succinate 40 mg/Syringe 0.64 ml @ 1.5 mls/min Q6H IV 06/29/17 10:00 07/29/17 08:29 06/29/17 16:04 1.5 MLS/MIN Parenteral Electrolyte Solution 1,000 ml @ 100 mls/hr Q10H IV 06/29/17 08:30 07/29/17 08:29 06/29/17 09:05 100 MLS/HR Insulin Aspart (novoLOG ASPART) SLIDING SCALE Q6 SC 06/29/17 12:00 07/29/17 11:59 Glucose (Glucose 40% Gel) 15-30 GRAMS 15 GRAMS... UD PRN PO 06/29/17 08:45 07/29/17 08:44 Glucose (Glucose Chew Tab) 4-8 Tablets 4 Tabl... UD PRN PO 06/29/17 08:45 07/29/17 08:44 Dextrose (Dextrose 50% 50ML Syringe) 25-50ML OF 50% DW IV FOR... UD PRN IV 06/29/17 08:45 07/29/17 08:44 Glucagon (Glucagon Inj) 1 mg UD PRN SQ 06/29/17 08:45 07/29/17 08:44 I & O: 24-Hour Column 06/30/17 08:00 Intake Total 704 ml Output Total 500 ml Balance 204 ml Vital Signs: Date Time Temp Pulse Resp B/P (MAP) Pulse Ox O2 Delivery O2 Flow Rate FiO2 06/29/17 16:00 99 BiPAP 40 06/29/17 16:00 36.1 93 18 115/78 (90) 99 BiPAP 40 06/29/17 14:29 97 22 99 BiPAP/CPAP 30 06/29/17 14:29 97 99 40 06/29/17 14:00 97 20 140/93 (109) 99 BiPAP 40 06/29/17 12:00 36.0 98 18 130/78 (95) 99 BiPAP 40 06/29/17 12:00 BiPAP 40 06/29/17 10:00 102 18 125/75 (92) 99 BiPAP 40 06/29/17 08:00 36.3 108 18 111/66 (81) 99 BiPAP 40 06/29/17 08:00 BiPAP 40 06/29/17 08:00 BiPAP 40 06/29/17 07:27 107 98 40 06/29/17 07:26 107 22 100 BiPAP/CPAP 30 06/29/17 06:00 109 24 127/70 (89) 98 BiPAP 40 06/29/17 04:00 BiPAP 40 06/29/17 04:00 36.7 113 18 116/68 (84) 98 BiPAP 40 06/29/17 02:15 119 26 98 BiPAP/CPAP 30 06/29/17 02:15 119 98 40 06/29/17 02:00 120 21 132/87 (102) 99 BiPAP 40 06/28/17 23:56 36.6 142 36 158/92 99 BiPAP 40 06/28/17 23:30 138 95 40 06/28/17 22:54 135 16 118/78 100 18 22:30 135 16 118/78 100 BiPAP 40 06/28/17 22:19 140 28 116/89 100 BiPAP 40 06/28/17 22:17 142 98 40 06/28/17 22:08 141 32 124/93 92 Nasal Cannula 4.0 06/28/17 21:46 149 06/28/17 20:59 90 Room Air 06/28/17 20:59 94 Nasal Cannula 3.0 06/28/17 20:44 36.8 141 28 124/74 93 Room Air Laboratory Results: Last 24 Hours Test 06/28/17 21:30 06/28/17 21:40 06/29/17 00:33 06/29/17 01:14 White Blood Count 13.59 K/uL Red Blood Count 4.52 M/uL Hemoglobin 14.2 g/dL Hematocrit 40.0 % Mean Corpuscular Volume 88.5 fL Mean Corpuscular Hemoglobin 31.4 pg Mean Corpuscular Hemoglobin Concent 35.5 g/dl Platelet Count 200 K/uL Mean Platelet Volume 11.5 fL Neutrophils (%) (Auto) 90.0 % Lymphocytes (%) (Auto) 6.9 % Monocytes (%) (Auto) 2.8 % Eosinophils (%) (Auto) 0.0 % Basophils (%) (Auto) 0.1 % Neutrophils # (Auto) 12.23 K/uL Lymphocytes # (Auto) 0.94 K/uL Monocytes # (Auto) 0.38 K/uL Eosinophils # (Auto) 0.00 K/uL Basophils # (Auto) 0.01 K/uL RDW Standard Deviation 40.6 fL RDW Coefficient of Variation 12.7 % Immature Granulocyte % (Auto) 0.2 % Immature Granulocyte # (Auto) 0.03 K/uL Sodium Level 140 mmol/L Potassium Level 3.8 mmol/L Chloride Level 104 mmol/L Carbon Dioxide Level 26 mmol/L Anion Gap 10.0 mmol/L Blood Urea Nitrogen 10 mg/dl Creatinine 0.86 mg/dl Estimated GFR () 105.1 Estimated GFR (Non- 90.7 BUN/Creatinine Ratio 11.3 Random Glucose 163 mg/dl Calcium Level 9.3 mg/dl Phosphorus Level 2.6 mg/dl Magnesium Level 1.8 mg/dl Total Bilirubin 0.5 mg/dl Direct Bilirubin 0.1 mg/dl Aspartate Amino Transf (AST/SGOT) 78 U/L Alanine Aminotransferase (ALT/SGPT) 206 U/L Alkaline Phosphatase 52 U/L Total Protein 7.7 gm/dl Albumin 3.7 gm/dl Chemistry Specimen Hemolysis Influenza Type A (RT-PCR) Neg for Influ A Influenza Type B (RT-PCR) Neg for Influ B Lactic Acid Level 2.6 mmol/L Bedside Glucose 205 mg/dl Test 06/29/17 02:40 06/29/17 04:44 06/29/17 05:50 06/29/17 09:09 Urine Color YELLOW Urine Appearance CLOUDY Urine pH 5.5 Urine Specific [place] 1.016 Urine Protein NEG Urine Glucose (UA) NEG Urine Ketones NEG Urine Occult Blood TRACE Urine Nitrite NEG Urine Bilirubin NEG Urine Urobilinogen NEG Urine Leukocyte Esterase TRACE Urine WBC (Auto) 5-10 /hpf Urine RBC (Auto) 0-4 /hpf Urine Hyaline Casts (Auto) 1-5 /lpf Urine Epithelial Cells (Auto) >30 /lpf Urine Bacteria (Auto) NEG Urine Test NEG Urine Opiates Screen POS Urine Methadone, Qualitative NEG Urine Barbiturates NEG Urine Phencyclidine (PCP) Level NEG Ur Amphetamine/Methamphetamine POS MDMA (Ecstasy) Screen POS Urine Benzodiazepines Screen POS Urine Cocaine Metabolite NEG Urine Marijuana (THC) NEG Lactic Acid Level 1.4 mmol/L Procalcitonin < 0.05 ng/ml Bedside Glucose 115 mg/dl Test 06/29/17 11:39 Bedside Glucose 120 mg/dl
[2017-06-30] VITALS (21 sets, daily range): BP systolic 123–138; BP diastolic 67–92; PULSE 79–123; TEMP 36.9–39.6; O2SAT 88–100
--- NOTE | 2017-06-30 01:17 | Progress Note ---
Medicine Progress Note Date & Time of Visit: Jun 29, 2017 at 16:40 . Subjective Persistent cough and wheezing. Remains on BiPAP. . Objective VITAL SIGNS @ 16:00: 36.1 93 18 115/78 . Physical Exam: General- lying in bed, wearing BiPAP Lungs- diffuse wheezing, scattered rhonchi, tachypneic Cardiovascular- RRR; no murmur; no gallop; no JVD; no pretibial edema Abdomen- + bowel sounds, soft, nontender Extremities- no cyanosis; no calf tenderness Neuro- alert Skin- warm & dry . Laboratory Results: Last 24 Hours Test 06/29/17 01:14 06/29/17 02:40 06/29/17 05:50 06/29/17 09:09 Bedside Glucose 205 mg/dl 115 mg/dl Urine Color YELLOW Urine Appearance CLOUDY Urine pH 5.5 Urine Specific [place] 1.016 Urine Protein NEG Urine Glucose (UA) NEG Urine Ketones NEG Urine Occult Blood TRACE Urine Nitrite NEG Urine Bilirubin NEG Urine Urobilinogen NEG Urine Leukocyte Esterase TRACE Urine WBC (Auto) 5-10 /hpf Urine RBC (Auto) 0-4 /hpf Urine Hyaline Casts (Auto) 1-5 /lpf Urine Epithelial Cells (Auto) >30 /lpf Urine Bacteria (Auto) NEG Urine Test NEG Urine Opiates Screen POS Urine Methadone, Qualitative NEG Urine Barbiturates NEG Urine Phencyclidine (PCP) Level NEG Ur Amphetamine/Methamphetamine POS MDMA (Ecstasy) Screen POS Urine Benzodiazepines Screen POS Urine Cocaine Metabolite NEG Urine Marijuana (THC) NEG Lactic Acid Level 1.4 mmol/L Procalcitonin < 0.05 ng/ml Test 06/29/17 11:39 06/29/17 17:59 06/29/17 23:09 Bedside Glucose 120 mg/dl 119 mg/dl 121 mg/dl Date/Time Source Procedure Growth Status 06/29/17 02:25 Sputum Expectorated Sputum Gram Stain - Final Resulted 06/29/17 02:25 Sputum Expectorated Sputum Sputum Culture Pending Resulted Assessment & Plan EXACERBATION ASTHMA Influenza PCR negative. No infiltrates on chest x-ray. Pulmonary / CCM consulted. Continue levofloxacin, steroids, nebs, BiPAP. VTE PROPHYLAXIS SQ enoxaparin. Ambulate as able. DISPOSITION Expected discharge to home. . Current Inpatient Medications: Current Inpatient Medications Medications (Trade) Dose Ordered Sig/Shawn Route Start Time Stop Time Status Last Admin Dose Admin Levalbuterol (Xopenex 1.25MG/ 3ML Neb) 1.25 mg Q6R INH 06/29/17 03:00 07/29/17 02:59 06/29/17 20:35 1.25 MG Miscellaneous Information ([facility] Protocol For Hyperglycemia) 1 ea PRN PRN N/A 06/28/17 23:30 06/30/17 23:29 Levofloxacin 750 mg/Prmx 150 ml @ 100 mls/hr Q24H IV 06/29/17 00:00 07/01/17 23:59 06/29/17 23:11 100 MLS/HR Nicotine (Nicoderm Cq 21MG Patch) 1 patch QAM TD 06/29/17 09:00 07/29/17 08:59 06/29/17 08:03 1 PATCH Miscellaneous (Remove Nicoderm Patch) 1 ea HS N/A 06/29/17 21:00 07/29/17 20:59 06/29/17 20:27 1 EA Cetirizine HCl (zyrTEC TAB) 10 mg DAILY PO 06/29/17 09:00 07/29/17 08:59 06/29/17 08:03 10 MG Miscellaneous Information (Order Awaiting Action) 1 ea QS N/A 06/29/17 08:00 07/29/17 07:59 Miscellaneous Information (Order Awaiting Action) 1 ea QS N/A 06/29/17 08:00 07/29/17 07:59 Acetaminophen (Tylenol Tab) 650 mg Q4H PRN PO 06/28/17 23:45 07/28/17 23:44 Dexmedetomidine HCl 200 mcg/ Sodium Chloride 50 ml @ 0 mls/hr Q0M PRN IV 06/28/17 23:38 07/02/17 23:37 06/29/17 18:06 8.5 MLS/HR Levalbuterol (Xopenex 1.25MG/ 3ML Neb) 1.25 mg Q2H PRN INH 06/28/17 23:45 07/28/17 23:44 Enoxaparin Sodium (Lovenox Inj) 40 mg Q24H SQ 06/29/17 11:00 07/29/17 10:59 06/29/17 11:41 40 MG Ipratropium [place] (Atrovent 0.02% 0.5MG/2.5ML Neb) 0.5 mg Q6R INH 06/29/17 03:00 07/29/17 02:59 06/29/17 20:35 0.5 MG Benzonatate (Tessalon Perles Cap) 100 mg TID PO 06/29/17 09:00 07/29/17 08:59 06/29/17 20:27 100 MG Methylprednisolone Sodium Succinate 40 mg/Syringe 0.64 ml @ 1.5 mls/min Q6H IV 06/29/17 10:00 07/29/17 08:29 06/29/17 22:06 1.5 MLS/MIN Parenteral Electrolyte Solution 1,000 ml @ 100 mls/hr Q10H IV 06/29/17 08:30 07/29/17 08:29 06/29/17 17:57 100 MLS/HR Insulin Aspart (novoLOG ASPART) SLIDING SCALE Q6 SC 06/29/17 12:00 07/29/17 11:59 Glucose (Glucose 40% Gel) 15-30 GRAMS 15 GRAMS... UD PRN PO 06/29/17 08:45 07/29/17 08:44 Glucose (Glucose Chew Tab) 4-8 Tablets 4 Tabl... UD PRN PO 06/29/17 08:45 07/29/17 08:44 Dextrose (Dextrose 50% 50ML Syringe) 25-50ML OF 50% DW IV FOR... UD PRN IV 06/29/17 08:45 07/29/17 08:44 Glucagon (Glucagon Inj) 1 mg UD PRN SQ 06/29/17 08:45 07/29/17 08:44
[2017-06-30] MEDS: IPRATROPIUM BROMIDE NEB SOLN 0.02% 2.5 ML VIAL INH SCH ×4 (02:09→19:54)
[2017-06-30] MEDS: LEVALBUTEROL 1.25MG/3ML NEB INH SCH ×4 (02:10→19:54)
[2017-06-30] MEDS: METHYLPREDNISOLONE IV 40 MG in SYRINGE 0 ML IV SCH ×4 (03:42→19:54)
[2017-06-30] MEDS: NORMOSOL R 1,000 ML IV SCH ×3 (03:43→23:57)
[2017-06-30] MEDS: INSULIN ASPART 100 UNITS/ML 3 ML PEN SC SCH ×4 (06:00→18:00)
[2017-06-30] MEDS: BENZONATATE 100MG CAP PO SCH ×3 (09:33→19:54)
[2017-06-30] MEDS: CETIRIZINE HCL 10 MG TAB PO SCH (09:33)
[2017-06-30] MEDS: NICOTINE 21 MG/24 HR TDSY TD SCH (09:34)
[2017-06-30] MEDS: ENOXAPARIN 40 MG/0.4 ML SYR SQ SCH (11:54)
--- NOTE | 2017-06-30 15:31 | Critical Care Progress Note ---
Critical Care Progress Note Date of Service Jun 30, 2017. Attending Dr. Piña Subjective Tolerates being off BIPAP now. Requires O2 when moving out of bed Feels better overall Objective General: Young female, no respiratory distress Heent: NC/AT Lungs: extensive bilateral expiratory wheezing, good air movement otherwise CVS: S1S2 reg Ext: no edema DIRECTOR SALES: AAO x 3, no deficit Assessment & Plan Asthma exacerbation Plan: Continue iv steroids, around the clock bronchodilators May hold outpatient inhalers for now, while on iv steroids BIPAP as needed for respiratory distress Continues to improve, doubt she'll need intubation Off Precedex May discontinue levofloxacin, no evidence of infection DVT prophylaxis: Lovenox Critical care time spent, greater than 25 minutes Data Medications: Current Inpatient Medications Medications (Trade) Dose Ordered Sig/Shawn Route Start Time Stop Time Status Last Admin Dose Admin Levalbuterol (Xopenex 1.25MG/ 3ML Neb) 1.25 mg Q6R INH 06/29/17 03:00 07/29/17 02:59 06/30/17 15:01 1.25 MG Miscellaneous Information ([facility] Protocol For Hyperglycemia) 1 ea PRN PRN N/A 06/28/17 23:30 06/30/17 23:29 Levofloxacin 750 mg/Prmx 150 ml @ 100 mls/hr Q24H IV 06/29/17 00:00 07/01/17 23:59 06/29/17 23:11 100 MLS/HR Nicotine (Nicoderm Cq 21MG Patch) 1 patch QAM TD 06/29/17 09:00 07/29/17 08:59 06/30/17 09:34 1 PATCH Miscellaneous (Remove Nicoderm Patch) 1 ea HS N/A 06/29/17 21:00 07/29/17 20:59 06/29/17 20:27 1 EA Cetirizine HCl (zyrTEC TAB) 10 mg DAILY PO 06/29/17 09:00 07/29/17 08:59 06/30/17 09:33 10 MG Miscellaneous Information (Order Awaiting Action) 1 ea QS N/A 06/29/17 08:00 07/29/17 07:59 Miscellaneous Information (Order Awaiting Action) 1 ea QS N/A 06/29/17 08:00 07/29/17 07:59 Acetaminophen (Tylenol Tab) 650 mg Q4H PRN PO 06/28/17 23:45 07/28/17 23:44 Dexmedetomidine HCl 200 mcg/ Sodium Chloride 50 ml @ 0 mls/hr Q0M PRN IV 06/28/17 23:38 07/02/17 23:37 Future Hold 06/29/17 18:06 8.5 MLS/HR Levalbuterol (Xopenex 1.25MG/ 3ML Neb) 1.25 mg Q2H PRN INH 06/28/17 23:45 07/28/17 23:44 Enoxaparin Sodium (Lovenox Inj) 40 mg Q24H SQ 06/29/17 11:00 07/29/17 10:59 06/30/17 11:54 40 MG Ipratropium [place] (Atrovent 0.02% 0.5MG/2.5ML [facility]) 0.5 mg Q6R INH 06/29/17 03:00 07/29/17 02:59 06/30/17 15:01 0.5 MG Benzonatate (Tessalon Perles Cap) 100 mg TID PO 06/29/17 09:00 07/29/17 08:59 06/30/17 13:49 100 MG Methylprednisolone Sodium Succinate 40 mg/Syringe 0.64 ml @ 1.5 mls/min Q6H IV 06/29/17 10:00 07/29/17 08:29 06/30/17 09:46 1.5 MLS/MIN Parenteral Electrolyte Solution 1,000 ml @ 100 mls/hr Q10H IV 06/29/17 08:30 07/29/17 08:29 06/30/17 13:49 100 MLS/HR Insulin Aspart (novoLOG ASPART) SLIDING SCALE Q6 SC 06/29/17 12:00 07/29/17 11:59 Glucose (Glucose 40% Gel) 15-30 GRAMS 15 GRAMS... UD PRN PO 06/29/17 08:45 07/29/17 08:44 Glucose (Glucose Chew Tab) 4-8 Tablets 4 Tabl... UD PRN PO 06/29/17 08:45 07/29/17 08:44 Dextrose (Dextrose 50% 50ML Syringe) 25-50ML OF 50% DW IV FOR... UD PRN IV 06/29/17 08:45 07/29/17 08:44 Glucagon (Glucagon Inj) 1 mg UD PRN SQ 06/29/17 08:45 07/29/17 08:44 I & O: 24-Hour Column 07/01/17 07:59 Intake Total 1230 ml Output Total 1325 ml Balance -95 ml Vital Signs: Date Time Temp Pulse Resp B/P (MAP) Pulse Ox O2 Delivery O2 Flow Rate FiO2 06/30/17 15:01 113 24 100 Mask 4.0 40 06/30/17 14:00 37.0 98 12 134/82 (99) 99 Oxymask 6.0 06/30/17 12:05 97 Oxymask 6.0 06/30/17 12:00 37.0 117 20 134/92 (106) 88 Oxymask 6.0 06/30/17 12:00 Oxymask 6.0 06/30/17 10:00 102 20 100 BiPAP 40 06/30/17 08:47 105 100 40 06/30/17 08:00 100 BiPAP 40 06/30/17 08:00 BiPAP 40 06/30/17 08:00 37.0 98 14 137/76 (96) 100 BiPAP 40 06/30/17 07:14 87 29 100 BiPAP/CPAP 40 06/30/17 06:00 79 14 123/76 (92) 99 BiPAP 40 06/30/17 05:09 105 100 40 06/30/17 04:00 100 BiPAP 40 06/30/17 04:00 39.6 101 20 123/67 (85) 100 BiPAP 40 06/30/17 02:10 108 29 100 BiPAP/CPAP 30 06/30/17 02:10 108 100 40 06/30/17 02:00 108 20 127/74 (91) 100 BiPAP 40 06/30/17 00:01 37.0 100 20 138/85 (102) 97 Oxymask 4.0 06/29/17 23:59 97 Oxymask 4.0 06/29/17 22:00 92 18 120/82 (95) 100 Oxymask 6.0 06/29/17 20:36 97 100 40 06/29/17 20:36 97 28 100 BiPAP/CPAP 30 06/29/17 20:00 BiPAP 40 06/29/17 20:00 36.6 90 24 110/74 (86) 100 BiPAP 40 06/29/17 18:00 86 18 131/85 (100) 99 BiPAP 40 06/29/17 16:00 99 BiPAP 40 06/29/17 16:00 36.1 93 18 115/78 (90) 99 BiPAP 40 Laboratory Results: Last 24 Hours Test 06/29/17 17:59 06/29/17 23:09 Bedside Glucose 119 mg/dl 121 mg/dl
--- NOTE | 2017-06-30 19:42 | Progress Note ---
Medicine Progress Note Date & Time of Visit: Jun 30, 2017 at 10:05 . Subjective CC: Follow-up visit for exacerbation of asthma. HPI: Better. Decreased wheezing, decreased cough, decreased SOB. Still wearing BiPAP. No nausea, vomiting, diarrhea. ROS: as noted above in HPI . Objective Last 8 Hrs Date Time Temp Pulse Resp B/P (MAP) Pulse Ox O2 Delivery O2 Flow Rate FiO2 06/30/17 18:00 97 19 129/83 (98) 94 Oxymask 40 BiPAP 06/30/17 16:00 105 19 131/73 (92) 94 Oxymask 4.0 06/30/17 16:00 Oxymask 4.0 06/30/17 15:01 113 24 100 Mask 4.0 40 06/30/17 15:00 123 19 96 Oxymask 4.0 06/30/17 14:00 37.0 98 12 134/82 (99) 99 Oxymask 4.0 06/30/17 12:05 97 Oxymask 6.0 06/30/17 12:00 37.0 117 20 134/92 (106) 88 Oxymask 6.0 06/30/17 12:00 Oxymask 6.0 Physical Exam: General- lying in bed, wearing BiPAP Lungs- diffuse moderate wheezing, few scattered rhonchi; no respiratory distress Cardiovascular- RRR; no murmur; no gallop; no JVD; no pretibial edema Abdomen- + bowel sounds, soft, nontender Extremities- no cyanosis; no calf tenderness Neuro- alert Skin- warm & dry . Laboratory Results: Last 24 Hours Test 06/29/17 23:09 06/30/17 05:47 06/30/17 17:57 Bedside Glucose 121 mg/dl 148 mg/dl 119 mg/dl Assessment & Plan EXACERBATION ASTHMA Influenza PCR negative. No infiltrates on chest x-ray. Pulmonary / CCM consulted. Continue levofloxacin, steroids, nebs, BiPAP. VTE PROPHYLAXIS SQ enoxaparin. Ambulate as able. DISPOSITION Expected discharge to home. . Current Inpatient Medications: Current Inpatient Medications Medications (Trade) Dose Ordered Sig/Shawn Route Start Time Stop Time Status Last Admin Dose Admin Levalbuterol (Xopenex 1.25MG/ 3ML Neb) 1.25 mg Q6R INH 06/29/17 03:00 07/29/17 02:59 06/30/17 15:01 1.25 MG Miscellaneous Information ([facility] Protocol For Hyperglycemia) 1 ea PRN PRN N/A 06/28/17 23:30 06/30/17 23:29 Levofloxacin 750 mg/Prmx 150 ml @ 100 mls/hr Q24H IV 06/29/17 00:00 07/01/17 23:59 06/29/17 23:11 100 MLS/HR Nicotine (Nicoderm Cq 21MG Patch) 1 patch QAM TD 06/29/17 09:00 07/29/17 08:59 06/30/17 09:34 1 PATCH Miscellaneous (Remove Nicoderm Patch) 1 ea HS N/A 06/29/17 21:00 07/29/17 20:59 06/29/17 20:27 1 EA Cetirizine HCl (zyrTEC TAB) 10 mg DAILY PO 06/29/17 09:00 07/29/17 08:59 06/30/17 09:33 10 MG Miscellaneous Information (Order Awaiting Action) 1 ea QS N/A 06/29/17 08:00 07/29/17 07:59 Miscellaneous Information (Order Awaiting Action) 1 ea QS N/A 06/29/17 08:00 07/29/17 07:59 Acetaminophen (Tylenol Tab) 650 mg Q4H PRN PO 06/28/17 23:45 07/28/17 23:44 Dexmedetomidine HCl 200 mcg/ Sodium Chloride 50 ml @ 0 mls/hr Q0M PRN IV 06/28/17 23:38 07/02/17 23:37 Future Hold 06/29/17 18:06 8.5 MLS/HR Levalbuterol (Xopenex 1.25MG/ 3ML Neb) 1.25 mg Q2H PRN INH 06/28/17 23:45 07/28/17 23:44 Enoxaparin Sodium (Lovenox Inj) 40 mg Q24H SQ 06/29/17 11:00 07/29/17 10:59 06/30/17 11:54 40 MG Ipratropium [place] (Atrovent 0.02% 0.5MG/2.5ML Neb) 0.5 mg Q6R INH 06/29/17 03:00 07/29/17 02:59 06/30/17 15:01 0.5 MG Benzonatate (Tessalon Perles Cap) 100 mg TID PO 06/29/17 09:00 07/29/17 08:59 06/30/17 13:49 100 MG Methylprednisolone Sodium Succinate 40 mg/Syringe 0.64 ml @ 1.5 mls/min Q6H IV 06/29/17 10:00 07/29/17 08:29 06/30/17 16:21 1.5 MLS/MIN Parenteral Electrolyte Solution 1,000 ml @ 100 mls/hr Q10H IV 06/29/17 08:30 07/29/17 08:29 06/30/17 13:49 100 MLS/HR Insulin Aspart (novoLOG ASPART) SLIDING SCALE Q6 SC 06/29/17 12:00 07/29/17 11:59 Glucose (Glucose 40% Gel) 15-30 GRAMS 15 GRAMS... UD PRN PO 06/29/17 08:45 07/29/17 08:44 Glucose (Glucose Chew Tab) 4-8 Tablets 4 Tabl... UD PRN PO 06/29/17 08:45 07/29/17 08:44 Dextrose (Dextrose 50% 50ML Syringe) 25-50ML OF 50% DW IV FOR... UD PRN IV 06/29/17 08:45 07/29/17 08:44 Glucagon (Glucagon Inj) 1 mg UD PRN SQ 06/29/17 08:45 07/29/17 08:44
[2017-06-30] MEDS: LEVOFLOXACIN / D5W 750 MG in PREMIXED IN D5W 150 ML IV SCH (23:56)
[2017-07-01] VITALS (8 sets, daily range): BP systolic 106–122; BP diastolic 70–85; PULSE 86–108; TEMP 36.7–36.9; O2SAT 91–98
[2017-07-01] MEDS: IPRATROPIUM BROMIDE NEB SOLN 0.02% 2.5 ML VIAL INH SCH ×2 (01:42→06:53)
[2017-07-01] MEDS: LEVALBUTEROL 1.25MG/3ML NEB INH SCH ×2 (01:42→06:53)
[2017-07-01] MEDS: METHYLPREDNISOLONE IV 40 MG in SYRINGE 0 ML IV SCH ×2 (04:48→10:00)
[2017-07-01] MEDS: INSULIN ASPART 100 UNITS/ML 3 ML PEN SC SCH ×2 (06:00)
[2017-07-01] MEDS: CETIRIZINE HCL 10 MG TAB PO SCH (09:20)
[2017-07-01] MEDS: BENZONATATE 100MG CAP PO SCH (09:20)
[2017-07-01] MEDS: NICOTINE 21 MG/24 HR TDSY TD SCH (09:20)
[2017-07-01] MEDS ORDERED: PRED10TA PO (09:45)
[2017-07-01] MEDS ORDERED: LEVO-18 PO (09:45)
--- NOTE | 2017-07-01 09:46 | Discharge Instructions ---
Discharge Instructions Date of Service Jul 01, 2017. Admission Reason for Admission: Asthma With Acute Exacerbation Discharge Discharge Diagnosis / Problem: ASTHMA EXACERBATION Discharge Goals Goal(s): Decrease discomfort, Improve function Activity Recommendations Activity Limitations: resume your previous activity ( TOLERATED) . Instructions / Follow-Up Instructions / Follow-Up FOLLOWUP WITH FAMILY DOCTOR IN 3-4 DAYS Current Hospital Diet Patient's current hospital diet: Regular Diet Discharge Diet Recommended Diet: Regular Diet Pending Studies Studies pending at discharge: no Medical Emergencies . Who to Call and When: Medical Emergencies: If at any time you feel your situation is an emergency, please call 911 immediately. . Non-Emergent Contact Non-Emergency issues call your: Primary Care Provider . . "Provider Documentation" section prepared by Ori Moore. . VTE Core Measure Inpt VTE Proph given/why not?: SCD's
--- NOTE | 2017-07-01 21:13 | Progress Note ---
Internal Med Progress Note Date of Service: Jul 01, 2017. Provider Documentation: SUBJECTIVE: says feeling fine has cough saturating fine without oxygen' has tachycardia with exertions but patient adamantly wants to go home and leaving AMA even after explaining risk of recurrence and intubation and may be fatal OBJECTIVE: Vital Signs-as noted below Exam: General-alert and oriented. Not in distress ENT-Normal hearing Neck-no neck masses Lungs-cta b/l mild b/l wheezing present no crackles Heart-S 1 and S 2heard regular rate and rhythm no murmurs Abdomen-soft bowel sounds present non tender no distension Extremities-no edema no erythema Neuro-alert and awake moves extremities Lab data as noted below. ASSESSMENT & PLAN: EXACERBATION ASTHMA Influenza PCR negative. No infiltrates on chest x-ray. Pulmonary / CCM consulted. on levofloxacin, steroids, nebs, required BiPAP initially currently sats ok on room air patient adamantly wants to go home and signed out AMA. gave scripts for prednisone taper and Levaquin and advice to follow with pcp soon signed out AMA Vital Signs: Date Time Temp Pulse Resp B/P (MAP) Pulse Ox O2 Delivery O2 Flow Rate FiO2 07/01/17 10:04 36.8 97 19 91 Room Air 07/01/17 08:00 36.8 97 19 119/85 (96) 91 Room Air 07/01/17 08:00 Room Air 07/01/17 06:53 97 16 95 Room Air 07/01/17 05:03 36.7 86 22 106/71 (83) 95 Room Air 07/01/17 04:00 Room Air 07/01/17 03:08 90 17 109/70 (83) 93 Room Air 07/01/17 02:11 107 14 94 Room Air 07/01/17 01:44 108 98 30 07/01/17 00:09 36.9 108 22 122/76 (91) 93 Room Air 06/30/17 23:59 Room Air 06/30/17 21:56 122 29 129/87 (101) 95 Oxymask 4.0
--- NOTE | 2017-07-01 21:15 | Discharge Summary ---
Discharge Summary Date of Service Jul 01, 2017. Discharge Summary Admission Date: Jun 28, 2017 at 22:34 Discharge Date: Jul 01, 2017 Discharge Disposition: Home (signed out AMA) Principal Diagnosis: asthma ex Secondary Diagnoses/Problems: (1) ADHD Status: Chronic (2) Asthma Permanent Comment: [facility] int[facility] Status: Chronic (3) Heroin abuse Status: Chronic Procedures: CXR: No acute process. Consultations: critical care pulmonary Medication Reconciliation New Medications: Levofloxacin (Levaquin) 750 Mg Tab 750 MG PO DAILY for 4 Days, #4 TAB Prednisone Tab (Prednisone) 10 Mg Tab 60 MG PO UD, #42 TAB PREDNISONE 60MG PO DAILY X 2 DAYS THEN PREDNISONE 50MG PO DAILY X 2 DAYS THEN PREDNISONE 40MG PO DAILY X 2 DAYS THEN PREDNISONE 30MG PO DAILY X 2 DAYS THEN PREDNISONE 20MG PO DAILY X 2 DAYS THEN PREDNISONE 10MG PO DAILY X 2 DAYS THEN STOP. Continued Medications: Albuterol Hfa (Ventolin Hfa) 200 Puffs/77184 Mcg Aers 2 PUFFS INH Q4H PRN for SOB/Wheezing, #1 INHALER Amphetamine-Dextroamphetamine 30MG (Adderall Xr 30MG) 1 Cap Cap 30 MG PO BID, CAP Cetirizine (Zyrtec) 10 Mg Tab 10 MG PO DAILY, TAB Diphenhydramine Hcl (Benadryl Allergy) 25 Mg Tab 0 PO UD PRN for ALLERGIC REACTION, #30 TAB 1 or 2 pills every 6 hrs as needed for hives no prescription necessary Epinephrine (Epipen 2-Otis) 0.3 Mg Inj 0.3 MG IM UD PRN for ALLERGIC REACTION, #2 DOSE Use as directed only for severe life-threatening allergic reactions. Fluticasone Furoate-Vilanterol (Breo Ellipta 200-25 Mcg/INH) 1 Inh Inh 1 PUFF PO BID Ipratropium-Albuterol (Duoneb) 3 Ml Nebu 1 TREATMENT INH Q4H PRN for Wheezing Mometasone Furoate (Nasal) (Mometasone Furoate) 50 Mcg/Act Spr 2 SPRAY NA BID PRN for Seasonal Allergies Admission Information HPI (per Admitting provider): 31 yo F smoker with a h/o prior heroin use and asthma requiring intubation in the past presents with 5 days of coughing and shortness of breath despite use of prednisone and nebulizers at home. She was recently admitted twice in Feb 2017 for respiratory distress 2/2 asthma and once for a heroin overdose despite stating she has been sober for one year now. She reports recently going to [place] and her mother developed an LINDY; mom and her boyfriend are both ill with LINDY. She denies any fevers, chills, body aches, nausea, vomiting or chest pain. She is tachycardic in the ER and is on Adderall 30 XR twice daily. ROS also reveals some back pain and mild frontal headache she believes is related to the coughing. She reports actively smoking 1 ppd of cigarettes and states that she quit 3 days ago. She does have a h/o intubation for asthma attacks in the past. She reports not getting the flu shot and says she is against them. Physical Exam (per Admitting): General Appearance: WD/WN, no apparent distress Head: normocephalic, atraumatic Eyes: normal inspection, PERRL, sclerae normal ENT: hearing grossly normal Neck: supple, no adenopathy, no JVD Respiratory/Chest: chest non-tender, no accessory muscle use, + wheezing, + pertinent finding (mild accessory muscle use and conversational dyspnea, BIPAP in place. ) Cardiovascular: no edema, no gallop, no murmur, normal peripheral pulses, + tachycardia Abdomen/GI: normal bowel sounds, non tender, soft Back: normal inspection Extremities/Musculoskelatal: normal inspection, no pedal edema, normal range of motion Neurologic/Psych: program development specialist II-XII nml as tested, no motor/sensory deficits, alert , normal mood/affect, oriented x 3 Skin: normal color, warm/dry, no rash Hospital Course EXACERBATION ASTHMA Influenza PCR negative. No infiltrates on chest x-ray. Pulmonary / CCM consulted. on levofloxacin, steroids, nebs, required BiPAP initially currently sats ok on room air patient adamantly wants to go home and signed out AMA. gave scripts for prednisone taper and Levaquin and advice to follow with pcp soon signed out AMA Total time spent on discharge = 35minutes This includes examination of the patient, discharge planning, medication reconciliation, and communication with other providers. Discharge Instructions Discharge Instructions Date of Service Jul 01, 2017. Admission Reason for Admission: Asthma With Acute Exacerbation Discharge Discharge Diagnosis / Problem: ASTHMA EXACERBATION Discharge Goals Goal(s): Decrease discomfort, Improve function Activity Recommendations Activity Limitations: resume your previous activity ( TOLERATED) . Instructions / Follow-Up Instructions / Follow-Up FOLLOWUP WITH FAMILY DOCTOR IN 3-4 DAYS Current Hospital Diet Patient's current hospital diet: Regular Diet Discharge Diet Recommended Diet: Regular Diet Pending Studies Studies pending at discharge: no Medical Emergencies . Who to Call and When: Medical Emergencies: If at any time you feel your situation is an emergency, please call 911 immediately. . Non-Emergent Contact Non-Emergency issues call your: Primary Care Provider . . "Provider Documentation" section prepared by Ori Moore. . VTE Core Measure Inpt VTE Proph given/why not?: SCD's
== END 2017-07-01 10:45 | disposition left against medical advice (07) | DRG 203 ==
LOC: C.EDB 20:44 → C.MSICU 22:34 → EDBEDREQ 22:39 → ENRESERV 22:45
PROVIDERS: ADMIT Hospitalist; ATTEND Internal Medicine
DX: J45.901 Unspecified asthma with (acute) exacerbation (principal); F90.9 Attention-deficit hyperactivity disorder, unspecified type; F17.200 Nicotine dependence, unspecified, uncomplicated; Z79.899 Other long term (current) drug therapy